=== PATIENT | female | born 1960 | race Caucasian/White ===

== ENCOUNTER 2024-07-30 13:56 | Outpatient (RCR) | payer MEDICAID, SELFPAY ==
--- NOTE | 2024-07-30 14:41 | PT.OIERPT ---
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 Pt has limitation with standing, walking, chores, balance, self care, and performing recreational activities. Objective: Right Hip AROM Flexion: 70 deg Abduction: 45 deg Extension: 15 deg ER and IR: WFL Right Hip MMTs: grossly 3/5 SLS: 2 sec Assessment: Pt demonstrate right hip mobility deficits and pain leading to difficulty with ADLs. Pt will attempt physical therapy if pain persist Pt will be refer back to provider for further consultation. Short Term and Supply Chain Analyst Goals 1) Decrease hip pain to 2/10 in 6 wks to be able to stand more than 30 mins 2) Increase right hip AROM WFL in 6 wks to be able to perform chores 3) Increase right hip MMTs grossly to 4-/5 in 6 wks to be able to walk more than 30 mins 4) Increase SLS to 10 sec in 6 wks to be able to perform self care activities 5) Indep with HEP Treatment Plan 1) Manual Therapy 2) Therapeutic Activities 3) Therapeutic Exercises 4) Modalities (ice, heat) 5) Balance Training 6) Gait Training Frequency and Duration: 2 x wk for 6 wks Certification Dates: 07/30/24 to 10/28/24 Procedure Charges OP PT Eval Mod Complex 30 minutes: Yes
== END 2024-08-12 23:59 | disposition home or self-care (01) ==
LOC: CPTX 13:56
PROVIDERS: PCP Family Medicine; Referring Provider Family Medicine; Visit Provider Family Medicine
DX: M25.551 Pain in right hip (principal); G89.29 Other chronic pain; R26.2 Difficulty in walking, not elsewhere classified; R26.89 Other abnormalities of gait and mobility
CPT/HCPCS: 97162

== ENCOUNTER 2024-08-04 20:18 | Inpatient (IN) | payer MEDICAID, SELFPAY ==
[2024-08-04 20:24] VITALS: BP 134/73; PULSE 40; PULSE 50; RESP 17; TEMP 36.6; O2SAT 93; BMI 25.7
--- NOTE | 2024-08-04 20:28 | XR_ITS ---
Examination: AP chest single view Technique: AP portable upright chest single view Exam date and time: August 04, 2024 2113 hrs. Comparison November 01, 2021 Indications: Chest pain today. Findings: Interval moderate CHF Mild to moderate enlargement cardiac contour Prominent vascular congestion with perihilar and basilar edema Moderate osteopenia Impression: Moderate CHF
--- NOTE | 2024-08-04 20:29 | PD.EDADULT ---
ED General RME/HPI General Chief complaint: Abdominal Pain Stated complaint: ABD PAIN Time Seen by Provider: 08/04/24 20:27 Arrival date/time: 08/04/24 20:18 CC: Epigastric pain HPI ongoing for 1 week denies any nausea vomiting has had loose formed stools. Patient states she has a significant hiatal hernia and the pain is similar to her hiatal hernia pain . Patient denies any nausea or vomiting. Patient complaining of weakness. Related Data Home Medications ?Medication ?Instructions ?Recorded ?Confirmed levothyroxine 50 mcg tablet 50 mcg PO QDAY THYROID #0 tabs 12/02/14 04/03/22 (Synthroid) clonidine HCl 0.1 mg tablet 1 tab PO QDAY 04/03/22 04/03/22 diltiazem HCl 120 mg 1 cap PO QDAY 04/03/22 04/03/22 capsule,extended release 24 hr docusate sodium 100 mg capsule 1 cap PO QDAY PRN Constipation 04/03/22 04/03/22 duloxetine 60 mg capsule,delayed 1 cap PO QDAY 04/03/22 04/03/22 release hydrochlorothiazide 12.5 mg capsule 1 cap PO QDAY 04/03/22 04/03/22 lisinopril 20 mg tablet 1 tab PO QDAY 04/03/22 04/03/22 metoprolol succinate 25 mg 1 tab PO QDAY 04/03/22 04/03/22 tablet,extended release 24 hr simvastatin 40 mg tablet 1 tab PO QDAY 04/03/22 04/03/22 Allergies Allergy/AdvReac Type Severity Reaction Status Date / Time adhesive Allergy Severe HIVES Verified 03/20/23 13:22 doxycycline Allergy Severe HIVES Verified 03/20/23 13:22 Penicillins Allergy Severe Hives Verified 03/20/23 13:22 Review of Systems Review of Systems Narrative Review of Systems: GEN: No fever, no chills, no weight loss EYES: No discharge, no visual changes, no pain HEENT: No ear pain, no congestion, no sore throat PULM: No shortness of breath, no cough, no congestion CV: No chest pain, no dyspnea on exertion, no palpitations GI: No nausea, no vomiting, no diarrhea, no pain, no constipation : No frequency, no urgency, no dysuria MUSC/SKEL: No joint pain, no back pain SKIN: No rash PSYCH: No hallucinations, no depression HEME/LYMPH: No easy bleeding or bruising tendencies NEURO: +weakness, no headache Past Medical History Past Medical History CARDIAC: Positive Hypertension; Negative Congestive Heart Failure RESPIRATORY: Negative Chronic Obstructive Pulmonary Disease (COPD) GASTROINTESTINAL: Positive Gastroesophageal Reflux Disease GENITOURINARY: Negative Renal Disease MUSCULOSKELETAL: Positive Fibromyalgia ENDOCRINE: Negative Diabetes Mellitus Type 1 or Diabetes Mellitus Type 2 PSYCHO/SOCIAL: Positive Depression and Anxiety Social History SMOKING STATUS: Never smoker ED Exam Narrative Physical exam: [General: Pale, in mild discomfort but not in any acute distress Head normocephalic HEENT: Eyes pupils are PERRLA EOMs are intact conjunctiva are blanched care nose: No rhinorrhea epistaxis mouth, blanched a mucous membranes dry, uvula is midline swallow symmetrical all other subsystems of HEENT are within acceptable limits Neck is supple nontender, no JVD no edema Chest equal chest rise nontender to palpation Respiratory: Clear to auscultation no wheezes crackles or rubs CV: Rate rhythm is regular no murmurs rubs or clicks Abdomen is soft, flat, tenderness with palpation site-specific at the epigastrium no radiation. No pain with palpation in the lower abdomen. Back: No CVA tenderness no spinous process tenderness from cervical spine thoracic and lumbar spine Skin: Pale, blanched, intact no petechiae rash induration ulceration or crepitus Extremities: Moving all extremity against resistance cap refill less than 2 seconds neurosensory intact Neuro: Awake alert oriented x3 Glascow coma 15 no focal deficits] Course Quality Measures none Orders Category Date Time Status Bedside COVID-19 Antigen Test NOW Care 08/04/24 22:41 Active Bedside COVID-19 Antigen Test NOW Care 08/04/24 23:45 Active COVID-19 Screening Questionnaire NOW Care 08/05/24 03:[address] Screening NOW Care 08/04/24 22:[address] Screening NOW Care 08/05/24 00:56 Completed Decision to Admit X1 Care 08/05/24 03:10 Completed EKG (ED ONLY) *Do not use* NOW Care 08/04/24 20:28 Completed [place] [Urinary Catheter] QS Care 08/04/24 22:14 Active Saline [Insert IV] NOW Care 08/04/24 23:[address] angio chest Stat Exams 08/05/24 00:[address] chest abdomen pelvis w Stat Exams 08/04/24 22:19 Completed EKG (ED Only) Stat Exams 08/04/24 20:28 Ordered US gall bladder Stat Exams 08/05/24 00:01 Completed XR chest 1V Stat Exams 08/04/24 20:28 Completed ABG [Arterial Blood Gas] Stat Lab 08/05/24 00:26 Completed B-Type Natriuretic Peptide Stat Lab 08/04/24 21:15 Completed BNP [B-Type Natriuretic Peptide] Stat Lab 08/04/24 23:37 Completed Blood Culture (Lab) Stat Lab 08/04/24 23:37 Received C-Reactive Protein Stat Lab 08/04/24 23:37 Completed CBC Stat Lab 08/04/24 21:15 Completed Comprehensive Metabolic Panel Stat Lab 08/04/24 21:15 Completed D-Dimer Stat Lab 08/04/24 23:37 Completed Drug Screen,Urine Stat Lab 08/04/24 21:19 Completed ESR [Sed Rate (ESR)] Stat Lab 08/04/24 23:37 Completed LDH (Lactate Dehydrogenase) Stat Lab 08/04/24 21:15 Completed Lactic Acid [Lactate (Lactic Acid)] Stat Lab 08/04/24 23:37 Completed Lactic Acid, 3 HR Stat Lab 08/05/24 03:20 Completed Magnesium Stat Lab 08/04/24 21:15 Completed Magnesium Stat Lab 08/04/24 23:37 Completed Partial Thromboplastin Time Stat Lab 08/04/24 21:15 Completed Procalcitonin Stat Lab 08/04/24 23:37 Completed Prothrombin Time with INR Stat Lab 08/04/24 21:15 Completed RSV [Respiratory Syncytial Virus Ag] Stat Lab 08/05/24 00:26 Completed TSH [Thyroid Stimulating Hormone] Stat Lab 08/04/24 21:15 Completed Troponin I Stat Lab 08/04/24 21:15 Completed Type and Screen Stat Lab 08/04/24 21:15 Completed Urinalysis Stat Lab 08/04/24 21:30 Completed VBG [Venous Blood Gas] Stat Lab 08/04/24 21:15 Completed Albuterol/Ipratr Rt Mary [Duoneb Rt Mary] Med 08/04/24 23:54 Discontinued 3 ml INH X1 ONE Azithromycin Inj [Zithromax Inj] 500 mg Med 08/04/24 23:54 Discontinued Sodium Chloride 0.9% 250 ml [Ns] 250 ml IV X1 Furosemide Inj [Lasix Inj] Med 08/05/24 00:00 Discontinued 40 mg IVP X1 ONE MethylPREDNISolone.* [SoluMEDROL Inj] Med 08/04/24 23:54 Discontinued 125 mg IVP X1 ONE Morphine Inj Med 08/04/24 23:04 Discontinued 4 mg IVP X1 ONE Nitroglycerin Oint 2% [Nitro-paste Oint 2%] Med 08/05/24 00:00 Discontinued 0.5 inch TOP X1 ONE Ondansetron Inj [Zofran Inj] Med 08/04/24 23:04 Discontinued 4 mg IV X1 ONE cefTRIAXone/D5w 1gm IV premix [Rocephin/D5w 1gm IV Med 08/04/24 23:06 Discontinued premix] 50 ml IV NOW Vital Signs Vital signs: Vital Signs Temperature 97.8 F 08/04/24 20:24 Pulse Rate 50 L 08/04/24 20:24 Respiratory Rate 17 08/04/24 20:24 Blood Pressure 134/73 H 08/04/24 20:24 [facility] Patient data External records reviewed:: [facility] previous records and EMS form Clinical information provided by:: patient and EMS Social determinants that could affect healthcare access:: none Patient has the following chronic illnesses:: Anemia hypertension hyperlipidemia How is presenting disease/condition affected by chronic disease/condition?: exacerbated by Evaluation data The following diagnostics were reviewed and interpreted by me:: lab results, radiology exam(s) and EKG tracing(s) Lab and/or radiology exams considered but not ordered:: EKG performed at 2099 shows ventricular rate of 5 2 TN interval 164 QRS of 113 QTc of 486 is sinus bradycardia abnormal EKG when compared to an old EKG EKG from October 2021, morphology is unchanged however that was at a normal rhythm. CBC shows the patient has been WBC of 8.3 H&H of 7.6 and 26.1 with platelets of 339 PT of 14.6 INR 1.4 PTT of 23.4 VBG shows 7.28 CO2 of 31 pO2 34 CMP shows a sodium 124 potassium of 4.6 chloride of 92 CO2 of 14.8 BUN 14 creatinine 1.4 and glucose of 108 BNP of 1265 Troponin is negative Chest x-ray shows vascular congestion CT chest 7 pelvis with IV contrast shows a significant right base pneumonia acute acalculous cholecystitis. Normal appendix Interpretation Summary: UTI sepsis hyponatremia anemia Medications Medications considered but not ordered:: None Medication administrations:: Medication Administration History Acetaminophen (Acetaminophen 325 Mg Tablet) 650 mg PO Q6H PRN PRN Reason: Pain 1-3 or Fever >101.5 Stop: 09/04/24 03:56 Hydrocodone Bitart/Acetaminophen (Hydrocodone/Apap 5/325 Tablet) 1 tab PO Q4HR PRN PRN Reason: PAIN SCALE 4-10(Mod-Sev Stop: 08/10/24 03:56 Last Admin: 08/05/24 08:41 Dose: 1 tab Documented By: CLEM Azithromycin (Azithromycin 250 Mg Tablet) 250 mg PO QPM SNONY Stop: 08/12/24 08:59 Furosemide (Furosemide Inj 10 Mg/Ml Vial 2 Ml) 20 mg IVP BIDD SONNY Stop: 09/04/24 06:14 Last Admin: 08/05/24 06:45 Dose: 20 mg Documented By: LAI Heparin Sodium (Porcine) (Heparin Sod Inj 5000 Unit/Ml Vial) 5,000 unit SC Q12HR SONNY Stop: 08/19/24 08:59 Last Admin: 08/05/24 08:39 Dose: 5,000 unit Documented By: CLEM Co-signed By: STAN Ceftriaxone Sodium/Dextrose (Rocephin/D5w 1gm Iv Premix) 50 mls @ 100 mls/hr IV QPM SONNY Stop: 08/12/24 20:59 Metronidazole (Metronidazole 250 Mg Tablet) 500 mg PO BID SONNY Stop: 08/12/24 08:59 Last Admin: 08/05/24 08:39 Dose: 500 mg Documented By: CLEM Ondansetron HCl (Ondansetron Inj 2 Mg/Ml Inj 2 Ml) 4 mg IV Q6H PRN; Protocol PRN Reason: NAUSEA OR VOMITING Stop: 09/04/24 03:56 Discontinued Medications Albuterol/Ipratropium (Albuterol/Ipratropium (Duoneb) Rt Mary 3 Ml Nebu) 3 ml INH X1 ONE Stop: 08/04/24 23:55 Last Admin: 08/05/24 00:12 Dose: 3 ml Documented By: NAEEM Furosemide (Furosemide Inj 10 Mg/Ml 4ml Vial) 40 mg IVP X1 ONE Stop: 08/05/24 00:01 Last Admin: 08/05/24 00:41 Dose: 40 mg Documented By: LAI Ceftriaxone Sodium/Dextrose (Rocephin/D5w 1gm Iv Premix) 50 mls @ 100 mls/hr IV NOW ONE Stop: 08/04/24 23:35 Last Infusion: 08/05/24 00:06 Dose: Infused Documented By: Admin: 08/04/24 23:36 Dose: 100 mls/hr Documented By: LAI Azithromycin 500 mg/ Sodium (Chloride) 250 mls @ 250 mls/hr IV X1 ONE Stop: 08/05/24 00:53 Last Infusion: 08/05/24 02:08 Dose: Infused Documented By: Admin: 08/05/24 01:08 Dose: 250 mls/hr Documented By: LAI Sodium Chloride (Ns) 500 mls @ 999 mls/hr IV .Q31M ONE Stop: 08/05/24 04:38 Last Infusion: 08/05/24 05:27 Dose: Infused Documented By: Admin: 08/05/24 04:30 Dose: 999 mls/hr Documented By: LAI Methylprednisolone Sodium Succinate (Methylprednisolone Sod Succ 62.5 Mg/Ml 2ml Vial) 125 mg IVP X1 ONE Stop: 08/04/24 23:55 Last Admin: 08/05/24 00:41 Dose: 125 mg Documented By: LAI Morphine Sulfate (Morphine Sulf Inj 10 Mg/Ml Vial) 4 mg IVP X1 ONE Stop: 08/04/24 23:05 Last Admin: 08/04/24 23:36 Dose: 4 mg Documented By: LAI Nitroglycerin (Nitroglycerin Oint 2% 1 Inch Packet) 0.5 inch TOP X1 ONE Stop: 08/05/24 00:01 Last Admin: 08/05/24 00:41 Dose: 0.5 inch Documented By: LAI Ondansetron HCl (Ondansetron Inj 2 Mg/Ml Inj 2 Ml) 4 mg IV X1 ONE; Protocol Stop: 08/04/24 23:05 Last Admin: 08/04/24 23:37 Dose: 4 mg Documented By: LAI None Consultations Consultation(s) initiated? (list below): No Diagnosis Differential Diagnosis ED Complaint MDM: Sepsis hyponatremia hypothermia UTI congestive heart failure pneumonia Most likely diagnosis given after review of the tests above:: Sepsis hyponatremia hypothermia UTI congestive heart failure pneumonia Admission Indicated Admission indicated?: indicated Explain why admission is indicated or not indicated:: Requires further medical management Admission Request Was there a request for admission?: No Disposition Plan Disposition Plan: Admit Medical Decision Making Differential Diagnosis Differential Diagnosis: Sepsis hyponatremia hypothermia UTI congestive heart failure pneumonia Lab Data 08/05/24 03:10 08/05/24 03:10 Labs: Lab Results 08/04/24 08/04/24 08/04/24 Range/Units 21:15 21:19 21:30 WBC 8.3 (3.6-11.0) Thou/mm3 RBC 3.90 L (4.00-5.20) Miln/mm3 Hgb 7.6 L (12.0-16.0) g/dL Hct 26.1 L (36.0-46.0) % MCV 67 L (80-100) fL MCH 19.5 L (25.0-35.0) pg MCHC 29.1 L (31.0-37.0) g/dl RDW Std Deviation 45.0 (36.4-46.3) fL Plt Count 339 (140-440) Thou/mm3 Neut % (Auto) 75 (37-80) % Lymph % (Auto) 13 (10-50) % [place] % (Auto) 10 (0-12) % Eos % (Auto) 0 (0-10) % Baso % (Auto) 0 (0-2.5) % Neut # (Auto) 6.3 (1.8-7.7) Thou/mm3 Lymph # (Auto) 1.1 (1.0-4.8) Thou/mm3 [place] # (Auto) 0.9 H (0.0-0.8) Thou/mm3 Eos # (Auto) 0.0 (0.0-0.5) Thou/mm3 Baso # (Auto) 0.0 (0.0-0.2) Thou/mm3 Immature Gran # (Auto) 0.10 H (0.00-0.00) Thou/mm3 Absolute Nucleated RBC 0.14 H (0.00-0.00) Thou/mm3 Immature Gran % 1 H (0-0) % Nucleated RBC % 2 H (0) /100 WBC ESR (0-30) mm/hr PT 14.6 H (9.0-12.2) Seconds INR 1.4 H (0.9-1.3) APTT 23.4 (22.0-36.0) Seconds D-Dimer (<600) ng/mL Puncture Site ABG pH (7.35-7.45) ABG pCO2 (32.0-48.0) mmHg ABG pO2 (83-108) mmHg ABG HCO3 (20-26) mEq/L ABG O2 Saturation (91-98) % ABG Base Excess (-3-3) VBG pH 7.28 L (7.33-7.66) VBG pCO2 31 L (36-56) mmHg VBG pO2 34 (15-58) mmHg VBG O2 Sat (Pily) 50 L (96-97) % VBG Base Excess -11 L (-3-3) Oxygen Liter Flow L/min FiO2 % Sodium 124 L (136-145) mMol/L Potassium 4.6 (3.4-5.1) mMol/L Chloride 92 L (98-107) mMol/L Carbon Dioxide 14.8 L* (20.0-31.0) mMol/L Anion Gap 17 H (7-16) BUN 14 (9-23) mg/dL Creatinine 1.4 H (0.6-1.3) mg/dL Estim Creat Clear Calc 38.0 L (>60) mL/min eGFR 43 L (60 - ) See Note BUN/Creatinine Ratio 10 L (12-20) Ratio Glucose 108 H (74-106) mg/dL Calculated Osmolality 251 L (275-295) Lactic Acid (0.4-2.0) mMol/L Calcium 9.5 (8.3-10.6) mg/dL Corrected Calcium 9.5 (8.5-10.1) mg/dL Magnesium 2.0 (1.6-2.6) mg/dL Total Bilirubin 0.6 (0.3-1.2) mg/dL AST 171 H (0-34) U/L ALT 264 H (10-49) U/L Alkaline Phosphatase 109 (46-116) U/L Lactate Dehydrogenase 309 H (120-246) U/L Troponin I < 0.020 (0.0-0.045) ng/mL C-Reactive Prot, Quant (0.0-0.9) mg/dL B-Natriuretic Peptide 1265 H* (0-100) pg/mL Total Protein 7.3 (5.7-8.2) gm/dL Albumin 4.2 (3.4-4.8) gm/dL Globulin 3.1 (2.3-3.5) gm/dL Albumin/Globulin Ratio 1.4 (1.2-2.2) Triglycerides (30-150) mg/dL Cholesterol (132-200) mg/dL LDL Cholesterol, Calc (0-130) mg/dL HDL Cholesterol (40-60) mg/dL Cholesterol/HDL Ratio (3.7-5.6) RATIO Procalcitonin (0.0-0.49) ng/ml TSH 3.66 (0.55-4.78) uIU/mL Ur Collection Type Clean Catch Urine Color Lt-Yellow (Lt Yel-Yel) Urine Clarity Clear (Clear/Hazy) Urine pH 6.0 (5.0-7.0) Ur Specific [place] 1.012 (1.001-1.035) Urine Protein Negative (Neg - Trace) Urine Glucose (UA) Negative (Negative) Urine Ketones 1+ A (Negative) Urine Blood Negative (Negative) Urine Nitrite Positive (Negative) Urine Bilirubin Negative (Negative) Urine Urobilinogen (Auto) Negative (0.0-1.0) mg/dL Ur Leukocyte Esterase Positive (Negative) Urine RBC 1 (0-3) /hpf Urine WBC 4 (0-5) /hpf Ur Squamous Epith Cells 0 (0-5) /hpf Urine Bacteria Rare (None) Hyaline Casts < 1 (0-1) /hpf Urine Opiates Screen Positive A (Negative) Urine Fentanyl Screen Negative (Negative) Ur Barbiturates Screen Negative (Negative) U Amphetamin/Meth Scrn Negative (Negative) U Benzodiazepines Scrn Negative (Negative) U Cocaine Metab Screen Negative (Negative) U Marijuana (THC) Screen Positive A (Negative) RSV Rapid (Negative) Blood Type A Positive Antibody Screen NEGATIVE Blood Bank Wristband ID Yes 08/04/24 08/05/24 08/05/24 Range/Units 23:37 00:26 03:10 WBC 11.7 H D (3.6-11.0) Thou/mm3 RBC 3.72 L (4.00-5.20) Miln/mm3 Hgb 7.2 L (12.0-16.0) g/dL Hct 24.1 L (36.0-46.0) % MCV 65 L (80-100) fL MCH 19.4 L (25.0-35.0) pg MCHC 29.9 L (31.0-37.0) g/dl RDW Std Deviation 42.0 (36.4-46.3) fL Plt Count 293 D (140-440) Thou/mm3 Neut % (Auto) 94 H (37-80) % Lymph % (Auto) 3 L (10-50) % [place] % (Auto) 3 (0-12) % Eos % (Auto) 0 (0-10) % Baso % (Auto) 0 (0-2.5) % Neut # (Auto) 11.0 H (1.8-7.7) Thou/mm3 Lymph # (Auto) 0.3 L (1.0-4.8) Thou/mm3 [place] # (Auto) 0.4 (0.0-0.8) Thou/mm3 Eos # (Auto) 0.0 (0.0-0.5) Thou/mm3 Baso # (Auto) 0.0 (0.0-0.2) Thou/mm3 Immature Gran # (Auto) 0.07 H (0.00-0.00) Thou/mm3 Absolute Nucleated RBC 0.04 H (0.00-0.00) Thou/mm3 Immature Gran % 1 H (0-0) % Nucleated RBC % 0 (0) /100 WBC ESR 27 (0-30) mm/hr PT (9.0-12.2) Seconds INR (0.9-1.3) APTT (22.0-36.0) Seconds D-Dimer 2470 H (<600) ng/mL Puncture Site Right Radial ABG pH 7.41 (7.35-7.45) ABG pCO2 35 (32.0-48.0) mmHg ABG pO2 86 (83-108) mmHg ABG HCO3 22 (20-26) mEq/L ABG O2 Saturation 97 (91-98) % ABG Base Excess -2 (-3-3) VBG pH (7.33-7.66) VBG pCO2 (36-56) mmHg VBG pO2 (15-58) mmHg VBG O2 Sat (Pily) (96-97) % VBG Base Excess (-3-3) Oxygen Liter Flow 2 L/min FiO2 21 % Sodium 129 L (136-145) mMol/L Potassium 3.6 D (3.4-5.1) mMol/L Chloride 94 L (98-107) mMol/L Carbon Dioxide 25.4 (20.0-31.0) mMol/L Anion Gap 10 (7-16) BUN 12 (9-23) mg/dL Creatinine 1.2 (0.6-1.3) mg/dL Estim Creat Clear Calc 44.3 L (>60) mL/min eGFR 51 L (60 - ) See Note BUN/Creatinine Ratio 10 L (12-20) Ratio Glucose 133 H (74-106) mg/dL Calculated Osmolality 260 L (275-295) Lactic Acid 3.2 H (0.4-2.0) mMol/L Calcium 8.9 (8.3-10.6) mg/dL Corrected Calcium 8.9 (8.5-10.1) mg/dL Magnesium 1.7 1.7 (1.6-2.6) mg/dL Total Bilirubin 0.7 (0.3-1.2) mg/dL AST 188 H (0-34) U/L ALT 260 H (10-49) U/L Alkaline Phosphatase 108 (46-116) U/L Lactate Dehydrogenase (120-246) U/L Troponin I (0.0-0.045) ng/mL C-Reactive Prot, Quant 1.2 H (0.0-0.9) mg/dL B-Natriuretic Peptide 1223 H* (0-100) pg/mL Total Protein 7.4 (5.7-8.2) gm/dL Albumin 4.3 (3.4-4.8) gm/dL Globulin 3.1 (2.3-3.5) gm/dL Albumin/Globulin Ratio 1.4 (1.2-2.2) Triglycerides 92 (30-150) mg/dL Cholesterol 125 L (132-200) mg/dL LDL Cholesterol, Calc 74 (0-130) mg/dL HDL Cholesterol 33 L (40-60) mg/dL Cholesterol/HDL Ratio 3.8 (3.7-5.6) RATIO Procalcitonin 0.65 H (0.0-0.49) ng/ml TSH (0.55-4.78) uIU/mL Ur Collection Type Urine Color (Lt Yel-Yel) Urine Clarity (Clear/Hazy) Urine pH (5.0-7.0) Ur Specific [place] (1.001-1.035) Urine Protein (Neg - Trace) Urine Glucose (UA) (Negative) Urine Ketones (Negative) Urine Blood (Negative) Urine Nitrite (Negative) Urine Bilirubin (Negative) Urine Urobilinogen (Auto) (0.0-1.0) mg/dL Ur Leukocyte Esterase (Negative) Urine RBC (0-3) /hpf Urine WBC (0-5) /hpf Ur Squamous Epith Cells (0-5) /hpf Urine Bacteria (None) Hyaline Casts (0-1) /hpf Urine Opiates Screen (Negative) Urine Fentanyl Screen (Negative) Ur Barbiturates Screen (Negative) U Amphetamin/Meth Scrn (Negative) U Benzodiazepines Scrn (Negative) U Cocaine Metab Screen (Negative) U Marijuana (THC) Screen (Negative) RSV Rapid Negative (Negative) Blood Type Antibody Screen Blood Bank Wristband ID 08/05/24 Range/Units 03:20 WBC (3.6-11.0) Thou/mm3 RBC (4.00-5.20) Miln/mm3 Hgb (12.0-16.0) g/dL Hct (36.0-46.0) % MCV (80-100) fL MCH (25.0-35.0) pg MCHC (31.0-37.0) g/dl RDW Std Deviation (36.4-46.3) fL Plt Count (140-440) Thou/mm3 Neut % (Auto) (37-80) % Lymph % (Auto) (10-50) % [place] % (Auto) (0-12) % Eos % (Auto) (0-10) % Baso % (Auto) (0-2.5) % Neut # (Auto) (1.8-7.7) Thou/mm3 Lymph # (Auto) (1.0-4.8) Thou/mm3 [place] # (Auto) (0.0-0.8) Thou/mm3 Eos # (Auto) (0.0-0.5) Thou/mm3 Baso # (Auto) (0.0-0.2) Thou/mm3 Immature Gran # (Auto) (0.00-0.00) Thou/mm3 Absolute Nucleated RBC (0.00-0.00) Thou/mm3 Immature Gran % (0-0) % Nucleated RBC % (0) /100 WBC ESR (0-30) mm/hr PT (9.0-12.2) Seconds INR (0.9-1.3) APTT (22.0-36.0) Seconds D-Dimer (<600) ng/mL Puncture Site ABG pH (7.35-7.45) ABG pCO2 (32.0-48.0) mmHg ABG pO2 (83-108) mmHg ABG HCO3 (20-26) mEq/L ABG O2 Saturation (91-98) % ABG Base Excess (-3-3) VBG pH (7.33-7.66) VBG pCO2 (36-56) mmHg VBG pO2 (15-58) mmHg VBG O2 Sat (Pily) (96-97) % VBG Base Excess (-3-3) Oxygen Liter Flow L/min FiO2 % Sodium (136-145) mMol/L Potassium (3.4-5.1) mMol/L Chloride (98-107) mMol/L Carbon Dioxide (20.0-31.0) mMol/L Anion Gap (7-16) BUN (9-23) mg/dL Creatinine (0.6-1.3) mg/dL Estim Creat Clear Calc (>60) mL/min eGFR (60 - ) See Note BUN/Creatinine Ratio (12-20) Ratio Glucose (74-106) mg/dL Calculated Osmolality (275-295) Lactic Acid 0.9 (0.4-2.0) mMol/L Calcium (8.3-10.6) mg/dL Corrected Calcium (8.5-10.1) mg/dL Magnesium (1.6-2.6) mg/dL Total Bilirubin (0.3-1.2) mg/dL AST (0-34) U/L ALT (10-49) U/L Alkaline Phosphatase (46-116) U/L Lactate Dehydrogenase (120-246) U/L Troponin I (0.0-0.045) ng/mL C-Reactive Prot, Quant (0.0-0.9) mg/dL B-Natriuretic Peptide (0-100) pg/mL Total Protein (5.7-8.2) gm/dL Albumin (3.4-4.8) gm/dL Globulin (2.3-3.5) gm/dL Albumin/Globulin Ratio (1.2-2.2) Triglycerides (30-150) mg/dL Cholesterol (132-200) mg/dL LDL Cholesterol, Calc (0-130) mg/dL HDL Cholesterol (40-60) mg/dL Cholesterol/HDL Ratio (3.7-5.6) RATIO Procalcitonin (0.0-0.49) ng/ml TSH (0.55-4.78) uIU/mL Ur Collection Type Urine Color (Lt Yel-Yel) Urine Clarity (Clear/Hazy) Urine pH (5.0-7.0) Ur Specific [place] (1.001-1.035) Urine Protein (Neg - Trace) Urine Glucose (UA) (Negative) Urine Ketones (Negative) Urine Blood (Negative) Urine Nitrite (Negative) Urine Bilirubin (Negative) Urine Urobilinogen (Auto) (0.0-1.0) mg/dL Ur Leukocyte Esterase (Negative) Urine RBC (0-3) /hpf Urine WBC (0-5) /hpf Ur Squamous Epith Cells (0-5) /hpf Urine Bacteria (None) Hyaline Casts (0-1) /hpf Urine Opiates Screen (Negative) Urine Fentanyl Screen (Negative) Ur Barbiturates Screen (Negative) U Amphetamin/Meth Scrn (Negative) U Benzodiazepines Scrn (Negative) U Cocaine Metab Screen (Negative) U Marijuana (THC) Screen (Negative) RSV Rapid (Negative) Blood Type Antibody Screen Blood Bank Wristband ID Discharge Plan Plan Patient Disposition: Admit Acute Care w/in Hospital Problem List Clinical Impression: Sepsis, Hypothermia, Acute respiratory failure with hypoxia, Pneumonia, CHF (congestive heart failure), Cholecystitis, Severe anemia, Hyponatremia, UTI (urinary tract infection)
--- NOTE | 2024-08-04 20:35 | PC.NURSE ---
IN TO ASSESS PT. PT BIB EMS WITH C/O EPIGASTRIC PAIN X 3 DAYS. PT ALSO STATES SHE HAS A HIATAL HERNIA. PT PRESENTS TO ER COLD TO TOUCH, WEAK AND HYPOXIC. PT STATING 84% ON ROOM AIR. PER MEDIC UNABLE TO OBTAIN O2 SAT DURING TRANSPORT TO ER. PT PLACED ON OXYMASK 15L. PT DOES NOT APPEAR TO HAVE INCREASE WORK OF BREATHING. PT RESPIRATIONS ARE NOT LABORED AND APPEAR TO BE EVEN. PT PLACED ON CARDIAC MONITORING. PROVIDER SHAY AT BEDSIDE ASSESSING PT. PT UPDATED ON PLAN OF CARE. PT A/X3 GCS 15. CALL LIGHT WITHIN REACH. BED AT LOWEST POSITION.
[2024-08-04 20:50] VITALS: TEMP 35
--- NOTE | 2024-08-04 20:50 | PC.NURSE ---
UNALBE TO GET O2 SATURATIONS AT THIS TIME. PT TEMP 95.0, RECTAL. ORDERS GIVEN TO PLACE ON MARIELOS REGIGGER.
--- NOTE | 2024-08-04 20:50 | PC.NURSE ---
PT PLACED ON MARIELOS WARMER AT THIS TIME
[2024-08-04 21:00] VITALS: PULSE 45
[2024-08-04 21:26] LABS: Base Excess, Venous -11 (-3-3); O2 Saturation, Venous 50 % (96-97); PCO2, Venous 31 mmHg (36-56); PO2, Venous 34 mmHg (15-58); pH, Venous 7.28 (7.33-7.66)
[2024-08-04 21:32] LABS: Basophils % (Auto) 0 % (0-2.5); Eosinophils % (Auto) 0 % (0-10); Hematocrit 26.1 % (36.0-46.0); Immature Granulocytes % (Auto) 1 % (0-0); Lymphocytes # (Auto) 1.1 Thou/mm3 (1.0-4.8); Lymphocytes % (Auto) 13 % (10-50); Mean Corpuscular HGB Conc 29.1 g/dl (31.0-37.0); Mean Corpuscular Hemoglobin 19.5 pg (25.0-35.0); Mean Corpuscular Volume 67 fL (80-100); Monocytes # (Auto) 0.9 Thou/mm3 (0.0-0.8); Monocytes % (Auto) 10 % (0-12); Neutrophils # (Auto) 6.3 Thou/mm3 (1.8-7.7); Neutrophils % (Auto) 75 % (37-80); Nucleated Red Blood Cell # 0.14 Thou/mm3 (0.00-0.00); Nucleated Red Blood Cell % 2 /100 WBC (0); Platelet Count 339 Thou/mm3 (140-440); White Blood Count 8.3 Thou/mm3 (3.6-11.0)
[2024-08-04 21:33] LABS: Hemoglobin 7.6 g/dL (12.0-16.0)
[2024-08-04 21:44] LABS: Collection Type, Urine Clean Catch; Squamous Epithelial Cell,Urine 0 /hpf (0-5)
[2024-08-04 21:50] VITALS: BP 151/72; PULSE 65; RESP 19; TEMP 36.5; O2SAT 93
[2024-08-04 21:50] LABS: Bacteria,Urine Rare; Bilirubin,Urine Negative (Negative); Blood,Urine Negative (Negative); Clarity,Urine Clear (Clear/Hazy); Color,Urine Lt-Yellow (Lt Yel-Yel); Glucose, Urine Negative (Negative); Hyaline Casts,Urine < 1 /hpf (0-1); Ketones,Urine 1+ (Negative); Leukocyte Esterase,Urine Positive (Negative); Nitrite,Urine Positive (Negative); Protein,Urine Negative (Neg - Trace); RBC,Urine 1 /hpf (0-3); Specific Gravity,Urine 1.012 (1.001-1.035); Urobilinogen,Urine Negative mg/dL (0.0-1.0); WBC,Urine 4 /hpf (0-5)
[2024-08-04 21:53] LABS: INR 1.4 (0.9-1.3); Partial Thromboplastin Time 23.4 Seconds (22.0-36.0); Prothrombin Time 14.6 Seconds (9.0-12.2)
[2024-08-04 22:00] VITALS: TEMP 35.2
[2024-08-04 22:06] LABS: Amphetamine/Methamp Scrn,U Negative (Negative); Barbiturate Screen,Urine Negative (Negative); Benzodiazepines Screen,Urine Negative (Negative); Benzoylecgonine Screen, Ur Negative (Negative); Fentanyl Screen,Urine Negative (Negative); Opiate Screen,Urine Positive (Negative); THC Screen,Urine Positive (Negative)
[2024-08-04 22:07] LABS: Alanine Aminotransferase 264 U/L (10-49); Albumin, Serum 4.2 gm/dL (3.4-4.8); Albumin/Globulin Ratio 1.4 (1.2-2.2); Alkaline Phosphatase 109 U/L (46-116); Anion Gap 17 (7-16); Aspartate Amino Transferase 171 U/L (0-34); BUN/Creatinine Ratio 10 Ratio (12-20); Bilirubin,Total 0.6 mg/dL (0.3-1.2); Blood Urea Nitrogen 14 mg/dL (9-23); Calcium 9.5 mg/dL (8.3-10.6); Calcium (Corrected) 9.5 mg/dL (8.5-10.1); Chloride 92 mMol/L (98-107); Creatinine (Component) 1.4 mg/dL (0.6-1.3); Globulin 3.1 gm/dL (2.3-3.5); Glucose 108 mg/dL (74-106); Osmolality,Calculated 251 (275-295); Potassium 4.6 mMol/L (3.4-5.1); Sodium 124 mMol/L (136-145); Thyroid Stimulating Hormone 3.66 uIU/mL (0.55-4.78); Total Protein 7.3 gm/dL (5.7-8.2); Troponin I < 0.020 ng/mL (0.0-0.045); eGFR 43 See Note
[2024-08-04 22:11] LABS: Carbon Dioxide 14.8 mMol/L (20.0-31.0)
[2024-08-04 22:19] LABS: LDH (Lactate Dehydrogenase) 309 U/L (120-246)
--- NOTE | 2024-08-04 22:19 | XR_ITS ---
Examination: CT chest with intravenous contrast CT abdomen with intravenous contrast CT pelvis with intravenous contrast 2-D coronal and sagittal reconstructions Time of exam: August 04, 2024 10:33 PM Indications: Chest and abdominal pain today CTDI: vol (mGy) : 9.72 DLP: (mGycm): 707 Technique: Multiple axial images of the chest, abdomen and pelvis with intravenous contrast, 3.0 mm slice thickness. Images obtained post intravenous injection Isovue 30 cc Isovue-300 2-D sagittal and coronal reconstructions. Low dose protocols were performed. One or more of the following dose reduction techniques were used; automated exposure control, adjustment of the mA and/or KV according to patient size, use of iterative reconstruction technique. Findings: No thoracic aortic aneurysm dilatation No pulmonary artery emboli Mild enlargement left atrium left ventricle Prominent vascular congestion with septal pulmonary edema Pneumonia at the right base Small right minimal left pleural fluid No focal liver or splenic lesions Gallbladder wall edema No pancreatic or adrenal mass Moderate bilateral renal parenchymal scar formation Aorta normal size Normal appendix No bowel obstruction Mild free fluid in the pelvis Urinary bladder contracted around a Santoyo catheter Prominent osteopenia with grade 1 anterolisthesis L4 on L5 Impression: Mild CHF Significant pneumonia right base Acute acalculous cholecystitis, recommend hepatobiliary sonography follow-up Normal appendix Moderate bilateral renal parenchymal scar formation, no hydronephrosis
[2024-08-04 22:45] VITALS: BP 151/72; PULSE 69; RESP 19; O2SAT 93
[2024-08-04 22:55] LABS: B-Type Natriuretic Peptide 1265 pg/mL (0-100)
--- NOTE | 2024-08-04 23:22 | PD.EDADDENDU ---
Emergency Room Addendum <Justine Zepeda - Last Filed: 08/05/24 03:10> Addendum Narrative: 2300: Care assumed from Adam Collins NP. Past medical, surgical, social and family history reviewed. Vitals and home medications reviewed. Results and treatment plan discussed. I will assume the care of the patient at this time and will follow the patient, pending gallbladder ultrasound. Please refer to the emergency department record for history and examination from initial visit. I reviewed all diagnostic test results. My interpretation of the EKG is My interpretation of the chest x-ray is My review of the CT report is Blood tests and urine tests At this point, diagnoses include sepsis, hypothermia, acute respiratory failure with hypoxia, pneumonia, CHF, cholecystitis. Treatment here included 0307: Discussed case with [the resident physician, attending Dr. Heath] from Hospitalist service regarding admission. Discussed patients ED course, exam findings, labs, and radiology results. The Hospitalist [agrees] to accept the patient for admission. <Shayan Skinner MD - Last Filed: 08/05/24 03:53> Addendum Narrative: 2300: Care assumed from Adam Collins NP. Past medical, surgical, social and family history reviewed. Vitals and home medications reviewed. Results and treatment plan discussed. I will assume the care of the patient at this time and will follow the patient, pending further diagnostic tests including gallbladder ultrasound. Please refer to the emergency department record for history and examination from initial visit and ED course. I reviewed all diagnostic test results. My interpretation of the chest x-ray is increased vascular congestion. My review of the chest/abdomen/pelvis CT report is pneumonia and CHF and cholecystitis. My review of the gallbladder US report is cholecystitis. Blood tests and urine tests remarkable for Hgb 7.6, D-dimer 2470, Na 124, BNP 1223, UTI, negative troponin, and lactic acid 3.2. RSV/COVID/influenza negative. At this point, diagnoses include sepsis, hypothermia, acute respiratory failure with hypoxia, pneumonia, CHF, cholecystitis, UTI, hyponatremia, severe anemia. Treatment here included oxygen, Rocephin, Zithromax, Solu-Medrol, DuoNeb, Lasix, morphine, and topical NTG. No significant improvement noted. 0307: Discussed case with [the resident physician, attending Dr. Heath] from Hospitalist service regarding admission. Discussed patient's ED course, exam findings, labs, and radiology results. The Hospitalist [agrees] to accept the patient for admission. Shayan kSinner MD
[2024-08-04] MEDS: cefTRIAXone/D5w 1gm IV premix 50 ML IV (23:36)
[2024-08-04] MEDS: MORPHINE SULF INJ 10 MG/ML VIAL 4 MG IVP (23:36)
[2024-08-04] MEDS: ONDANSETRON INJ 2 MG/ML INJ 2 ML 4 MG IV (23:37)
[2024-08-04 23:46] LABS: Lactate (Lactic Acid) 3.2 mMol/L (0.4-2.0)
[2024-08-05] VITALS (14 sets, daily range): BP systolic 123–144; BP diastolic 56–76; PULSE 68–84; RESP 14–89; TEMP 36.2–37.4; O2SAT 94–100; BMI 25.2
--- NOTE | 2024-08-05 00:01 | XR_ITS ---
Examination: Abdomen sonogram, Limited Date and time of exam: August 04, 2024 11:58 PM Indications: Right upper abdominal pain and tenderness beginning a couple days ago Technique: Real-time dickinson scale transabdominal sonographic images of the upper abdomen obtained. Findings: Negative for gallstones Gallbladder wall is abnormally thickened 0.63 cm Common bile duct 0.41 cm no stones Pancreas obscured by bowel gas Liver 14.8 cm no liver lesions Normal hepatopedal portal venous flow Patent IVC Impression: Acute acalculous cholecystitis
[2024-08-05] MEDS: ALBUTEROL/IPRATROPIUM (Duoneb) RT SOL 3 ML NEBU INH (00:12)
[2024-08-05 00:23] LABS: Sed Rate (ESR) 27 mm/hr (0-30)
[2024-08-05 00:30] LABS: Allen Test Performed/OK; Base Excess -2 (-3-3); HCO3 22 mEq/L (20-26); Inspired O2, VO2 Liters 2 L/min; Inspired Oxygen, FIO2 21 %; O2 Saturation 97 % (91-98); PCO2 35 mmHg (32.0-48.0); PO2 86 mmHg (83-108); Puncture Site Right Radial; pH, Arterial 7.41 (7.35-7.45)
[2024-08-05 00:41] LABS: D-Dimer 2470 ng/mL (<600)
[2024-08-05] MEDS: NITROGLYCERIN OINT 2% 1 INCH PACKET 0.5 INCH TOP (00:41)
[2024-08-05] MEDS: FUROSEMIDE INJ 10 MG/ML 4ML VIAL 40 MG IVP (00:41)
[2024-08-05] MEDS: MethylPREDNISolone SOD SUCC 62.5 MG/ML 2ML VIAL 125 MG IVP (00:41)
--- NOTE | 2024-08-05 00:50 | PC.NURSE ---
PT'S RECTAL TEMP 98.1, MARIELOS MANCERA REMOVED AT THIS TIME.
[2024-08-05 00:52] LABS: B-Type Natriuretic Peptide 1223 pg/mL (0-100)
[2024-08-05 00:56] LABS: Magnesium 1.7 mg/dL (1.6-2.6); Procalcitonin 0.65 ng/ml (0.0-0.49)
--- NOTE | 2024-08-05 00:56 | XR_ITS ---
Examination: CTA chest with intravenous contrast 2-D reconstructions 3-D reconstructions, vascular Date and time of exam: August 05, 2024 0122 hrs. Indications: Shortness of breath hypoxia chest pain today CTDI: vol (mGy) 21.01 DLP: (mGycm) 471 Technique: Multiple axial sections of the thorax have been obtained. 3 mm slice thickness, from below the hemidiaphragms to above the apices of the lungs. Mediastinal and lung density settings have been obtained. 2-D sagittal and coronal reconstructions. 3-D angiographic renderings, 3-D volume renderings, 3D post processing, vascular maximum intensity projections obtained. Contrast administered is 60 cc Isovue-300. Low dose protocols were performed. One or more of the following dose reduction techniques were used; automated exposure control, adjustment of the mA and/or KV according to patient size, use of iterative reconstruction technique. Findings: No thoracic aortic aneurysmal dilatation or dissection No pulmonary artery emboli Mild enlargement left atrium left ventricle No paratracheal tracheobronchial or bronchopulmonary adenopathy Significant vascular congestion with mild pulmonary edema Pneumonia at the lung bases with mild to moderate right pleural effusion and minimal left pleural effusion No visualized liver or splenic lesion Gallbladder wall appears thickened and edematous No pancreatic mass Kidneys partially visualized no hydronephrosis Impression: Mild heart failure Negative for pulmonary artery emboli Bibasilar pneumonia Mild to moderate right pleural effusion Acute acalculous cholecystitis
[2024-08-05 01:07] LABS: C-Reactive Protein 1.2 mg/dL (0.0-0.9)
[2024-08-05] MEDS: AZITHROMYCIN INJ 500 MG in SODIUM CHLORIDE 0.9% 250 ML 250 ML 250 MG IV (01:08)
[2024-08-05 01:26] LABS: Respiratory Syncytial Virus Ag Negative (Negative)
[2024-08-05 02:43] LABS: Reflex Lactate? Y
--- NOTE | 2024-08-05 02:45 | PRELIM_ITS ---
CT angiogram of the chest with intravenous contrast (axial sections with sagittal and coronal reforma ts) August 05, 2024 at 0120 hours Clinical History: Shortness of breath, hypoxia. Technique:Helical axial sections with sagittal and coronal reformats of the chest were obtained with intravenous contr ast. Iterative reconstruction technique was employed to reduce patient radiation exposure. 3D/MIP rec onstructed images were also provided. Comparison: Compared with the prior study dated August 04.Findings:There is no filling defect within the pulmonary artery divisions to suggest pulmonary thr omboembolism. The mediastinum demonstrates no evidence of mass or lymphadenopathy. The thoracic aorta is unremarkable. There is no pericardial effusion. Bilateral lower lobes consolidation.No pneumothor ax.Moderate right pleural effusion. Small left pleural effusion.Degenerative changes of the imaged p ortions of the spine. No acute fractures. Chronic multilevel disc disease.Gallbladder wall thickenin g.Bilateral breast implants in place.Dilated left atrium.Impression:1. No CT evidence of pulmonary th romboembolism.2. Bilateral pleural effusions.3. Bilateral lower lobes pneumonia.4. Dilated left atriu m.5. Gallbladder wall thickening suspicious for acute cholecystitis. Report Electronically Signed By: Jayce Malcolm 08/05/2024 2:43:50 AM [EST]
[2024-08-05 03:24] LABS: Lactic Acid, 3 HR 0.9 mMol/L (0.4-2.0)
--- NOTE | 2024-08-05 04:00 | ECHO_ITS ---
Transthoracic Echo Report Ht (in): 63 Wt (lb): 145 Exam Location: Port[facility] Status: Emergency Public Works Commissioner: Zara Ortiz Indications: Procedure Performed: BP: 131 / 72 HR: 73 Rhythm: Sinus Technical Quality: Fair MEASUREMENTS (Male / Female) Normal Values 2D ECHO LV Diastolic Diameter PLAX 5.7 cm 4.2 - 5.9 / 3.9 - 5.3 cm LV Systolic Diameter PLAX 3.9 cm IVS Diastolic Thickness 0.9 cm 0.6 - 1.0 / 0.6 - 0.9 cm LVPW Diastolic Thickness 0.9 cm 0.6 - 1.0 / 0.6 - 0.9 cm LV Relative Wall Thickness 0.3 LVOT Diameter 1.8 cm LA Volume Index 55.5 cm?/m? 16 - 28 cm?/m? Ascending Aorta Diameter 3.2 cm M-MODE Aortic Root Diameter MM 2.5 cm LA Systolic Diameter MM 4.3 cm LA Ao Ratio MM 1.7 AV Cusp Separation MM 1.8 cm DOPPLER AV Peak Velocity 181.0 cm/s AV Peak Gradient 13.1 mmHg AV Mean Gradient 7.0 mmHg AV Velocity Time Integral 40.4 cm AI Peak Velocity 447.0 cm/s AI Peak Gradient 79.9 mmHg AI Pressure Half Time 540.0 ms LVOT Peak Velocity 113.0 cm/s LVOT Peak Gradient 5.1 mmHg LVOT Velocity Time Integral 25.0 cm LVOT Cardiac Index 2694.3 cm?/min?m? AV Area Cont Eq vti 1.6 cm? AV Area Cont Eq pk 1.6 cm? MV Peak Velocity 142.0 cm/s MV Peak Gradient 8.1 mmHg MV Mean Velocity 87.3 cm/s MV Mean Gradient 4.0 mmHg MV Area PHT 5.0 cm? MR Peak Velocity 549.5 cm/s MR Peak Gradient 120.8 mmHg Mitral E Point Velocity 142.0 cm/s Mitral A Point Velocity 122.0 cm/s Mitral E to A Ratio 1.2 LV E' Lateral Velocity 12.4 cm/s Mitral E to LV E' Lateral Ratio 11.5 LV E' Septal Velocity 7.5 cm/s Mitral E to LV E' Septal Ratio 18.9 FINDINGS Left Ventricle Mild left ventricle dilatation. Normal wall thickness, systolic function with no obvious regional wa ll motion abnormalities. The ejection fraction is visually estimated at 55-60%. Right Ventricle The right ventricle is normal in size and systolic function. Left Atrium The left atrium is moderately dilated. Right Atrium The right atrium is normal by two-dimensional imaging, color flow and Doppler imaging with no struct ural abnormalities, no thrombus formation present. Atrial Septum The interatrial septum appears normal with no evidence of a shunt. Aorta The aorta is normal by two-dimensional, color flow and Doppler interrogation. Mitral Valve The mitral valve is normal by two-dimensional, color flow and Doppler interrogation. There is modera te mitral valve regurgitation. Aortic Valve The aortic valve is trileaflet and normal by two-dimensional, color flow and Doppler interrogation. There is moderate aortic valve regurgitation. Tricuspid Valve The tricuspid valve is normal by two-dimensional, color flow and Doppler interrogation. There is tra ce tricuspid valve regurgitation. Pulmonic Valve There is no significant pulmonic valve regurgitation. Vessels The pulmonary artery appears normal. The inferior vena cava pulmonary and hepatic veins appear gisele l. Pericardium The pericardium is normal by two-dimensional imaging. There is no significant pericardial effusion. Other Findings Pleural effusion present. CONCLUSIONS Dilated LV. Normal LV size and function. Estimated EF 55-60% Normal RV size and function. Moderate LA dilatation Moderate MR, Mild aortic regurgitation race TR. Pleural effusion present. Lily Blake (Electronically Signed) Final Date: 05 August 2024 13:09
--- NOTE | 2024-08-05 04:18 | ESHP_ITS ---
<Statement entered by Kendra Heath MD - 08/05/24 07:10> I Kendra Heath MD reviewed the note and agree with the resident's assessment & plan with exceptions as below. I have personally reviewed labs, imaging, home meds/prior records, examined the patient, formulated and discussed management plan with the IM team. A 64-year-old female with Hx of HTN, hypothyroidism, opioid dependence presented to ED with 4 days of abdominal pain, nausea, diarrhea and noted to have hypothermia requiring supplemental oxygen via oxime mask and significant bilateral pulmonary crackles and lethargy on physical examination. Labs remarkable for microcytic anemia, leukocytosis, hyponatremia with NA 124, elevated anion gap with lactate of 3.2> 0.9 and elevated LDH. BNP noted to be elevated at 1.2. CT scan did reveal right basilar infiltrates along with pulmonary vascular congestion and bilateral effusion. Procalcitonin significantly elevated. Admit patient for symptomatic hyponatremia, acute hypoxemic respiratory failure likely secondary to COPD/decompensated congestive heart failure, JUAN ANTONIO, acalculous cholecystitis and transaminitis likely due to congestive hepatopathy. Will start patient on gentle diuresis with Lasix 20 mg twice daily, empiric antibiotic coverage with cefepime, azithromycin and Flagyl for potential pneumonia and acalculous cholecystitis. Obtain haptoglobin and Bell test for potential hemolytic anemia. Continue respiratory support with supplemental oxygen, every 6 renal panel. Obtain stool studies echocardiogram to evaluate for myocardial function. Documentation for date of: 08/05/24 HPI History of Present Illness History of present illness: The patient is a 64-year-old female with a past medical history of hypertension, hypothyroidism, opiate dependence, chronic pain disorder and anxiety disorder presenting to the ED on 08/04/2024 with a 4-day history of generalized abdominal pain, nausea and diarrhea. Patient is a poor historian and has a very hard time recollecting the course of events that have taken place since her symptoms started. Per the patient, she was in her usual state of health until about 4 days ago when she started to experience generalized abdominal pain, initially starting in the periumbilical region, and then involving all regions of the abdomen. She endorses associated nausea and multiple episodes of diarrhea per day, but denies vomiting. Diarrhea said to be nonbloody, last episode had a couple hours before coming to the ED. She denies any recent travels or sick contacts or eating any meals, not prepared solely by her. She lives alone and has not shared results with anyone who could possibly have similar symptoms. Additionally, she endorses subjective fever and chills, and nonproductive cough but denies chest pain, shortness of breath or palpitations. She also denies orthopnea, paroxysmal nocturnal dyspnea or pitting edema. Patient has no urinary symptoms. ED course: In the ED, she was noted to be hypothermic with temperature of 95 degrees, but saturating 93% on room air. Labs done: WBC 8.3 Hgb 7.6 with low MCV ESR 27 D-dimer 2470 NA 120 4K4.6 CL 92 bicarb 14.8 anion gap 17 BUN 14 CR 1.4 EGFR 43 glucose 108 AST 171 ALT 264 LDH 309 CRP 1.2 BNP 1223 procalcitonin 0.65 normal TSH UA positive for 1+ ketones and esterase, otherwise unremarkable and U-Tox was positive for opiates and marijuana. Chest x-ray showed pulmonary vascular congestion and CT showed significant pneumonia in the right base Due to patient's hypoxia, she was placed on oxy mask at 7 L. She was given IV ceftriaxone, azithromycin, Solu-Medrol 125 mg and IV Lasix 40 mg. Review of Systems Review of Systems Narrative Review of Systems: GENERAL: Denies fevers/chills or diaphoresis. HEENT: Denies headache or visual/hearing changes. Denies nasal discharge. NEURO: Denies unusual weakness or difficulty speaking. CARDIO: Denies chest pain or palpitations. PULM: Denies shortness of breath, admits nonproductive cough GI: Admits abdominal pain, nausea, diarrhea. Denies vomiting URO: Denies burning/itching/pain/urinary changes. MSK/EXT/SKIN: Denies joint/skeletal/muscle pain, issues/changes in upper or lower extremities, itchiness, or superficial pain. PSYCH: Cooperative, pleasant mood & affect. Exam Vital Signs Temp Pulse Resp BP Pulse Ox O2 Del Method O2 Flow Rate 98.1 F 68 21 H 126/57 L 99 Oxy Mask 10 08/05/24 00:47 08/05/24 03:54 08/05/24 03:54 08/05/24 03:54 08/05/24 03:54 08/05/24 03:54 08/05/24 03:54 Narrative Exam GENERAL: AAOX3 NEURO: ECONOMIC DEVELOPER grossly intact, moves extremities x4 HEENT: Dry mucosa. Eyes open, symmetrical, & clear CARDIO: No chest pain on palpation. Heart RRR, no obvious murmurs PULM: Minimal crackles, worse on the right base. GI: Abdomen soft, nondistended, mild tenderness to palpation abdomen, generalized. BSx4 URO/CASINO CASHIER:: No further abnormalities noted. SKIN/MSK/EXT: Right wrist joint with limited range of motion Results: Labs 08/05/24 03:10 08/05/24 03:10 Labs: Short CBC 08/04/24 Range/Units 21:15 WBC 8.3 (3.6-11.0) Thou/mm3 Hgb 7.6 L (12.0-16.0) g/dL Hct 26.1 L (36.0-46.0) % Plt Count 339 (140-440) Thou/mm3 BMP 08/04/24 21:15 Sodium 124 L Potassium 4.6 Chloride 92 L Carbon Dioxide 14.8 L* BUN 14 Creatinine 1.4 H Glucose 108 H Calcium 9.5 Cardiac Enzymes 08/04/24 Range/Units 21:15 Troponin I < 0.020 (0.0-0.045) ng/mL Liver Function 08/04/24 Range/Units 21:15 Total Bilirubin 0.6 (0.3-1.2) mg/dL AST 171 H (0-34) U/L ALT 264 H (10-49) U/L Alkaline Phosphatase 109 (46-116) U/L Albumin 4.2 (3.4-4.8) gm/dL Urine 08/04/24 Range/Units 21:30 Urine Color Lt-Yellow (Lt Yel-Yel) Urine Clarity Clear (Clear/Hazy) Urine pH 6.0 (5.0-7.0) Ur Specific [place] 1.012 (1.001-1.035) Urine Protein Negative (Neg - Trace) Urine Glucose (UA) Negative (Negative) ABG Interpretation ABG results: 08/04/24 08/05/24 21:15 00:26 ABG pH 7.41 ABG pCO2 35 ABG pO2 86 ABG HCO3 22 ABG O2 Saturation 97 ABG Base Excess -2 VBG pH 7.28 L VBG pCO2 31 L VBG pO2 34 VBG Base Excess -11 L Quality Measures Quality Measures VTE prophylaxis Medications Home Medications and Allergies Home Medications ?Medication ?Instructions ?Recorded ?Confirmed ?Type levothyroxine 50 mcg tablet 50 mcg PO QDAY THYROID #0 tabs 12/02/14 04/03/22 History (Synthroid) clonidine HCl 0.1 mg tablet 1 tab PO QDAY 04/03/22 04/03/22 History diltiazem HCl 120 mg 1 cap PO QDAY 04/03/22 04/03/22 History capsule,extended release 24 hr docusate sodium 100 mg capsule 1 cap PO QDAY PRN Constipation 04/03/22 04/03/22 History duloxetine 60 mg capsule,delayed 1 cap PO QDAY 04/03/22 04/03/22 History release hydrochlorothiazide 12.5 mg capsule 1 cap PO QDAY 04/03/22 04/03/22 History lisinopril 20 mg tablet 1 tab PO QDAY 04/03/22 04/03/22 History metoprolol succinate 25 mg 1 tab PO QDAY 04/03/22 04/03/22 History tablet,extended release 24 hr simvastatin 40 mg tablet 1 tab PO QDAY 04/03/22 04/03/22 History Allergies Allergy/AdvReac Type Severity Reaction Status Date / Time adhesive Allergy Severe HIVES Verified 03/20/23 13:22 doxycycline Allergy Severe HIVES Verified 03/20/23 13:22 Penicillins Allergy Severe Hives Verified 03/20/23 13:22 Visit Medications Acetaminophen (Acetaminophen 325 Mg Tablet) 650 mg PO Q6H PRN PRN Reason: Pain 1-3 or Fever >101.5 Stop: 09/04/24 03:56 Hydrocodone Bitart/Acetaminophen (Hydrocodone/Apap 5/325 Tablet) 1 tab PO Q4HR PRN PRN Reason: PAIN SCALE 4-10(Mod-Sev Stop: 08/10/24 03:56 Heparin Sodium (Porcine) (Heparin Sod Inj 5000 Unit/Ml Vial) 5,000 unit SC Q12HR SONNY Stop: 08/19/24 08:59 Sodium Chloride (Ns) 500 mls @ 999 mls/hr IV .Q31M ONE Stop: 08/05/24 04:38 Ondansetron HCl (Ondansetron Inj 2 Mg/Ml Inj 2 Ml) 4 mg IV Q6H PRN; Protocol PRN Reason: NAUSEA OR VOMITING Stop: 09/04/24 03:56 Discontinued Medications Albuterol/Ipratropium (Albuterol/Ipratropium (Duoneb) Rt Mary 3 Ml Nebu) 3 ml INH X1 ONE Stop: 08/04/24 23:55 Last Admin: 08/05/24 00:12 Dose: 3 ml Furosemide (Furosemide Inj 10 Mg/Ml 4ml Vial) 40 mg IVP X1 ONE Stop: 08/05/24 00:01 Last Admin: 08/05/24 00:41 Dose: 40 mg Ceftriaxone Sodium/Dextrose (Rocephin/D5w 1gm Iv Premix) 50 mls @ 100 mls/hr IV NOW ONE Stop: 08/04/24 23:35 Last Infusion: 08/05/24 00:06 Dose: Infused Azithromycin 500 mg/ Sodium (Chloride) 250 mls @ 250 mls/hr IV X1 ONE Stop: 08/05/24 00:53 Last Infusion: 08/05/24 02:08 Dose: Infused Methylprednisolone Sodium Succinate (Methylprednisolone Sod Succ 62.5 Mg/Ml 2ml Vial) 125 mg IVP X1 ONE Stop: 08/04/24 23:55 Last Admin: 08/05/24 00:41 Dose: 125 mg Morphine Sulfate (Morphine Sulf Inj 10 Mg/Ml Vial) 4 mg IVP X1 ONE Stop: 08/04/24 23:05 Last Admin: 08/04/24 23:36 Dose: 4 mg Nitroglycerin (Nitroglycerin Oint 2% 1 Inch Packet) 0.5 inch TOP X1 ONE Stop: 08/05/24 00:01 Last Admin: 08/05/24 00:41 Dose: 0.5 inch Ondansetron HCl (Ondansetron Inj 2 Mg/Ml Inj 2 Ml) 4 mg IV X1 ONE; Protocol Stop: 08/04/24 23:05 Last Admin: 08/04/24 23:37 Dose: 4 mg Assessment & Plan Assessment Summary: The patient is a 64-year-old female with a past medical history of hypertension, hypothyroidism, opiate dependence, chronic pain disorder and anxiety disorder presented to the ED on 08/04/2024 with a 4-day history of generalized abdominal pain, nausea and diarrhea.. Chest x-ray showed pulmonary vascular congestion and CT showed significant pneumonia in the right base #Gastroenteritis #Acute kidney injury #Type B lactic acidosis #AGMA #Mild hyponatremia The patient presents to the ED with 4-day history of generalized abdominal pain, nausea and diarrhea. She states that pain initially started in the periumbilical region and then progressively worsened to involve all regions of the abdomen, associated with nausea and multiple episodes of diarrhea per day. Patient endorses decreased oral intake based on her symptoms. She denies any recent travels or sick contacts. In the ED, patient was hypothermic with temperature of 95 degrees. CMP significant for creatinine of 1.4 and bicarb of 14.8 with initial lactate level of 3.2 Plan: -Stool culture and WBC -Urine electrolytes and osmolality -Avoid nephrotoxic medications -Monitor renal panel #?New onset CHF On presentation to the ED, the patient was noted to be hypoxic, saturating 93% on room air. On examination, she has very minimal crackles in the right base of the lung, but no JVD or pitting edema. Patient denies any shortness of breath at home. No orthopnea or PND BNP was elevated at 1223 She received IV Lasix x 1 in the ED. Clinically, patient has hypovolemic volume status Plan: -IV Lasix 20mg daily -Strict I&Os -Echocardiogram -Consider cardiology consult #Community-acquired pneumonia The patient endorses nonproductive cough and subjective fever and chills, but denies chest pain, shortness of breath or palpitations. CTA on admission showed significant pneumonia in the right base. COVID, influenza and RSV negative Received IV ceftriaxone and azithromycin in the ED as well as IV Solu-Medrol 125 mg Plan: -Continue with ceftriaxone and azithromycin -Blood cultures -Sputum cultures if patient is able to expectorate -Cocci serology #Acute acalculous cholecystitis CT abdomen/pelvis on admission revealed acute acalculous cholecystitis. Labs have elevated ALT and AST, normal T.bili and ALP Patient has no RUQ pain on palpation, Mike sign negative. Plan: - Consider Gen Surg consult - Add Metronidazole #History of hypertension Patient has a history of hypertension and is on irbesartan 75 mg daily, diltiazem CD to 40 mg daily and metoprolol succinate 25 mg daily. Blood pressure on admission has been borderline, currently normotensive. Plan: -Hold irbesartan in setting of JUAN ANTONIO -Consider resuming some home meds if blood pressure becomes elevated #History of hypothyroidism The patient has a history of hypothyroidism and is on levothyroxine 50 mcg daily. Plan: -TSH -Resume levothyroxine #History of chronic pain #Status post multiple wrist surgeries The patient had right wrist injury about 5 years ago and has had multiple surgeries with revisions. Due to this she has had chronic pain for many years and is on pain medications at home-[place] 10 U-Tox positive for opiates on admission Plan: -Optimize pain management Health maintenance: Dispo: MedSurg Diet: Cardiac DVT: SC Heparin Santoyo: None Lines: Peripheral Med Rec: Pending, f/u PT: Not ordered Code: Full Case was discussed with attending physician, Dr Kumar Rubio MD PGY-1
[2024-08-05 04:25] LABS: Basophils % (Auto) 0 % (0-2.5); Eosinophils % (Auto) 0 % (0-10); Hematocrit 24.1 % (36.0-46.0); Immature Granulocytes % (Auto) 1 % (0-0); Immature Granulocytes Auto 0.07 Thou/mm3 (0.00-0.00); Lymphocytes # (Auto) 0.3 Thou/mm3 (1.0-4.8); Lymphocytes % (Auto) 3 % (10-50); Mean Corpuscular HGB Conc 29.9 g/dl (31.0-37.0); Mean Corpuscular Hemoglobin 19.4 pg (25.0-35.0); Mean Corpuscular Volume 65 fL (80-100); Monocytes # (Auto) 0.4 Thou/mm3 (0.0-0.8); Monocytes % (Auto) 3 % (0-12); Neutrophils % (Auto) 94 % (37-80); Nucleated Red Blood Cell # 0.04 Thou/mm3 (0.00-0.00); Nucleated Red Blood Cell % 0 /100 WBC (0); Platelet Count 293 Thou/mm3 (140-440); Red Blood Count 3.72 Miln/mm3 (4.00-5.20); White Blood Count 11.7 Thou/mm3 (3.6-11.0)
[2024-08-05 04:28] LABS: Hemoglobin 7.2 g/dL (12.0-16.0)
[2024-08-05] MEDS: SODIUM CHLORIDE 0.9% 500 ML 500 ML 999 ML IV (04:30)
[2024-08-05 04:44] LABS: Alanine Aminotransferase 260 U/L (10-49); Albumin, Serum 4.3 gm/dL (3.4-4.8); Albumin/Globulin Ratio 1.4 (1.2-2.2); Alkaline Phosphatase 108 U/L (46-116); Anion Gap 10 (7-16); Aspartate Amino Transferase 188 U/L (0-34); BUN/Creatinine Ratio 10 Ratio (12-20); Bilirubin,Total 0.7 mg/dL (0.3-1.2); Blood Urea Nitrogen 12 mg/dL (9-23); Calcium 8.9 mg/dL (8.3-10.6); Calcium (Corrected) 8.9 mg/dL (8.5-10.1); Carbon Dioxide 25.4 mMol/L (20.0-31.0); Cardiac Risk Estimate 3.8 RATIO (3.7-5.6); Chloride 94 mMol/L (98-107); Cholesterol 125 mg/dL (132-200); Creatinine (Component) 1.2 mg/dL (0.6-1.3); Estimated Creatinine Clearance 44.3 mL/min (>60); Globulin 3.1 gm/dL (2.3-3.5); Glucose 133 mg/dL (74-106); HDL Cholesterol 33 mg/dL (40-60); LDL Cholesterol,Calculated 74 mg/dL (0-130); Magnesium 1.7 mg/dL (1.6-2.6); Osmolality,Calculated 260 (275-295); Potassium 3.6 mMol/L (3.4-5.1); Sodium 129 mMol/L (136-145); Total Protein 7.4 gm/dL (5.7-8.2); Triglycerides 92 mg/dL (30-150); eGFR 51 See Note
--- NOTE | 2024-08-05 05:42 | PRELIM_ITS ---
Gallbladder ultrasound. August 04, 2024 at 2358 hours.Clinical history: RUQ tendernessComparison:No prior study is available for comparison.Findings:The visualized liver is normal in echogenicity with out mass or ductal dilatation. No gallbladder calculus or pericholecystic fluid is identified. There is mild gallbladderwall thickeningmeasuring 4 mm.The common duct is normal in caliber at 4mm. No free fluid is demonstrated on the submitted images.Impression:Findings are suggestive of acute acalculous cholecystitis. Report Electronically Signed By: Bravo Stafford 08/05/2024 5:42:34 AM [EST]
[2024-08-05] MEDS: FUROSEMIDE INJ 10 MG/ML VIAL 2 ML 20 MG IVP (06:45)
[2024-08-05 06:48] LABS: Troponin I < 0.020 ng/mL (0.0-0.045)
--- NOTE | 2024-08-05 06:58 | PC.NURSE ---
REPORT RECEIVED AT THIS TIME; PER REPORT, PT COMING IN FOR ABD PAIN; PT NAVARRETE HX OF HIATAL HERNIA SO PT THOUGHT THAT WAS THE REASON FOR HER PAIN; UPON ARRIVAL, PT WAS PALE AND COLD RECAL TEMP INITIALLY WAS 95F. PT PLACED ON MARIELOS HUGGER BUT STOPPED AT MIDNIGHT BC PT'S TEMP NORMALIZED. PCT OF CHEST SHOWED CHF, WHICH PT WAS UNAWARE OF. PT ADMITTED FOR HYPOTHERMIA SECONDARY TO SEPSIS PNEUMONIA. PT CONNECTED TO MONITORS AT THIS TIME.
--- NOTE | 2024-08-05 08:30 | PC.NURSE ---
SPOKE TO DR. BERNAL ON THE PHONE TO CLARIFY DIET ORDER AND MADE AWARE THAT PT HAS A DIET ORDER BUT PLAN OF CARE INDICATES NEED FOR CONSULT WITH GENERAL SURGERY S/P ACUTE ACALCULOUS CHOLECYSTITIS. PER DR. AMHAN, KEEP PT NPO FOR NOW; I WILL TALK TO GENERAL SURGERY AND CALL YOU BACK TO LET YOU KNOW IF PT CAN EAT.
[2024-08-05] MEDS: HEPARIN SOD INJ 5000 UNIT/ML VIAL SC ×2 (08:39→20:51)
[2024-08-05] MEDS: metroNIDAZOLE 250 MG TABLET 500 MG PO (08:39)
[2024-08-05] MEDS: HYDROcodone/APAP 5/325 TABLET 1 TAB PO ×2 (08:41→13:24)
--- NOTE | 2024-08-05 10:05 | PD.SURCONS ---
HPI Consult details Consult date: 08/05/24 Reason for consultation narrative: The patient was seen in consultation for a possible acalculous cholecystitis History of present illness: Patient is not complaining of right upper quadrant pain but she has pain in the other portion of the abdomen associated with diarrhea Meds Home Medications and Allergies Home Medications ?Medication ?Instructions ?Recorded ?Confirmed ?Type levothyroxine 50 mcg tablet 50 mcg PO QDAY THYROID #0 tabs 12/02/14 04/03/22 History (Synthroid) clonidine HCl 0.1 mg tablet 1 tab PO QDAY 04/03/22 04/03/22 History diltiazem HCl 120 mg 1 cap PO QDAY 04/03/22 04/03/22 History capsule,extended release 24 hr docusate sodium 100 mg capsule 1 cap PO QDAY PRN Constipation 04/03/22 04/03/22 History duloxetine 60 mg capsule,delayed 1 cap PO QDAY 04/03/22 04/03/22 History release hydrochlorothiazide 12.5 mg capsule 1 cap PO QDAY 04/03/22 04/03/22 History lisinopril 20 mg tablet 1 tab PO QDAY 04/03/22 04/03/22 History metoprolol succinate 25 mg 1 tab PO QDAY 04/03/22 04/03/22 History tablet,extended release 24 hr simvastatin 40 mg tablet 1 tab PO QDAY 04/03/22 04/03/22 History Allergies Allergy/AdvReac Type Severity Reaction Status Date / Time adhesive Allergy Severe HIVES Verified 03/20/23 13:22 doxycycline Allergy Severe HIVES Verified 03/20/23 13:22 Penicillins Allergy Severe Hives Verified 03/20/23 13:22 Exam Vital Signs Temp Pulse Resp BP Pulse Ox O2 Del Method O2 Flow Rate 97.9 F 73 14 131/72 H 97 Oxy Mask 7 08/05/24 08:46 08/05/24 08:46 08/05/24 08:46 08/05/24 08:46 08/05/24 08:46 08/05/24 08:46 08/05/24 08:46 Routine Abdominal Exam Comments: Examination of the abdomen showed no tenderness in the right upper quadrant Results Results: Laboratory Laboratory Narrative: WBC is within normal limits Results: Imaging Imaging narrative: Ultrasound and CT scan showed thickening of the gallbladder wall with no stones Assessment & Plan Additional Assessment Additional comments: Impression: Possible acalculous cholecystitis as per the radiologist Plan Plan: I suggest we order HIDA scan. Patient does not require any surgical intervention because she is not tender over the right upper quadrant. We shall reevaluate her with a HIDA scan results
--- NOTE | 2024-08-05 11:08 | XR_ITS ---
Examination: ELADIO, hepatobiliary radioisotope scan Gallbladder ejection fraction study. Date and time of exam: August 05, 2024 1517 hrs. Indications: Generalized abdominal pain nausea and diarrhea beginning 4 days ago Technique: 5.9 mCi of 99M Hepatolite administered. Serial imaging then obtained from immediate through 60 minutes. 1.4 mcg selective catheter Kinevac administered for gallbladder ejection fraction study. Findings: Radioisotope activity within the liver is reasonably homogenous. Gallbladder, common bile duct small bowel activity noted Impression: Gallbladder activity Abnormal gallbladder ejection fraction, 14%, normal greater than 35%
[2024-08-05 11:44] LABS: Path Review Blood Smear Sent to Pathologist
[2024-08-05 14:31] LABS: Cocci Serology, IgM Negative (Negative)
--- NOTE | 2024-08-05 14:38 | ESPR_ITS ---
Documentation for date of: 08/05/24 Subjective Subjective Interval history: Patient was seen and examined at bedside. No acute events overnight. Continues to complain of generalized abdominal pain. Minimal diarrhea last few days. Semisoft 1/day. Due to weakness patient has Santoyo catheter placed. Dr. Arcos was consulted for acalculous cholecystitis. Recommended HIDA scan which is pending. Currently patient on 6 L nasal cannula saturating at 93 to 95%. States that she has recently started experiencing shortness of breath with minimal physical activity. Echo revealed EF 55-60%, moderate LA dilatation, moderate MR, pleural effusion present. Chest CTA positive for mild heart failure, bibasilar pneumonia moderate right sided pleural effusion. Negative for PE. Stop azithromycin and ceftriaxone. Start IV Levo 500mg daily until 08/12/24 (7 days) for CAP. Labs significant for WBC 11.7, hemoglobin 7.2, sodium 129, potassium 3.6, AST 188, ALT 260. BNP 1223. Review of systems otherwise negative except what is mentioned above. Exam Vital Signs Temp Pulse Resp BP Pulse Ox O2 Del Method O2 Flow Rate 97.2 F 84 19 136/61 H 94 L Room Air 7 08/05/24 12:00 08/05/24 12:00 08/05/24 12:00 08/05/24 12:00 08/05/24 12:00 08/05/24 12:00 08/05/24 08:46 Narrative Exam GENERAL: AAOX3 NEURO: QUALITY AND RELIABILITY ENGINEER grossly intact, moves extremities x4 HEENT: Dry mucosa. Eyes open, symmetrical, & clear CARDIO: No chest pain on palpation. Heart RRR, no obvious murmurs PULM: Minimal crackles, worse on the right base, on NC GI: Abdomen soft, nondistended, no tenderness, normal BS present URO/ELECTRIC RANGE ASSEMBLER:: No further abnormalities noted. SKIN/MSK/EXT: Right wrist joint with limited range of motion Objective Labs 08/06/24 04:30 08/06/24 04:30 Labs: Laboratory Results - last 24 hr 08/04/24 08/04/24 08/04/24 21:15 21:19 21:30 WBC 8.3 RBC 3.90 L Hgb 7.6 L Hct 26.1 L MCV 67 L MCH 19.5 L MCHC 29.1 L RDW Std Deviation 45.0 Plt Count 339 Neut % (Auto) 75 Lymph % (Auto) 13 [place] % (Auto) 10 Eos % (Auto) 0 Baso % (Auto) 0 Neut # (Auto) 6.3 Lymph # (Auto) 1.1 [place] # (Auto) 0.9 H Eos # (Auto) 0.0 Baso # (Auto) 0.0 Immature Gran # (Auto) 0.10 H Absolute Nucleated RBC 0.14 H Immature Gran % 1 H Nucleated RBC % 2 H Smear Path Review ESR PT 14.6 H INR 1.4 H APTT 23.4 D-Dimer Puncture Site ABG pH ABG pCO2 ABG pO2 ABG HCO3 ABG O2 Saturation ABG Base Excess VBG pH 7.28 L VBG pCO2 31 L VBG pO2 34 VBG O2 Sat (Pily) 50 L VBG Base Excess -11 L Oxygen Liter Flow FiO2 Sodium 124 L Potassium 4.6 Chloride 92 L Carbon Dioxide 14.8 L* Anion Gap 17 H BUN 14 Creatinine 1.4 H Estim Creat Clear Calc 38.0 L eGFR 43 L BUN/Creatinine Ratio 10 L Glucose 108 H Calculated Osmolality 251 L Lactic Acid Calcium 9.5 Corrected Calcium 9.5 Magnesium 2.0 Total Bilirubin 0.6 AST 171 H ALT 264 H Alkaline Phosphatase 109 Lactate Dehydrogenase 309 H Troponin I < 0.020 C-Reactive Prot, Quant B-Natriuretic Peptide 1265 H* Total Protein 7.3 Albumin 4.2 Globulin 3.1 Albumin/Globulin Ratio 1.4 Triglycerides Cholesterol LDL Cholesterol, Calc HDL Cholesterol Cholesterol/HDL Ratio Procalcitonin TSH 3.66 Ur Collection Type Clean Catch Urine Color Lt-Yellow Urine Clarity Clear Urine pH 6.0 Ur Specific [place] 1.012 Urine Protein Negative Urine Glucose (UA) Negative Urine Ketones 1+ A Urine Blood Negative Urine Nitrite Positive Urine Bilirubin Negative Urine Urobilinogen (Auto) Negative Ur Leukocyte Esterase Positive Urine RBC 1 Urine WBC 4 Ur Squamous Epith Cells 0 Urine Bacteria Rare Hyaline Casts < 1 Urine Opiates Screen Positive A Urine Fentanyl Screen Negative Ur Barbiturates Screen Negative U Amphetamin/Meth Scrn Negative U Benzodiazepines Scrn Negative U Cocaine Metab Screen Negative U Marijuana (THC) Screen Positive A Coccidioides IgM Ab RSV Rapid Blood Type A Positive Antibody Screen NEGATIVE Blood Bank Wristband ID Yes 08/04/24 08/05/24 08/05/24 23:37 00:26 03:10 WBC 11.7 H D RBC 3.72 L Hgb 7.2 L Hct 24.1 L MCV 65 L MCH 19.4 L MCHC 29.9 L RDW Std Deviation 42.0 Plt Count 293 D Neut % (Auto) 94 H Lymph % (Auto) 3 L [place] % (Auto) 3 Eos % (Auto) 0 Baso % (Auto) 0 Neut # (Auto) 11.0 H Lymph # (Auto) 0.3 L [place] # (Auto) 0.4 Eos # (Auto) 0.0 Baso # (Auto) 0.0 Immature Gran # (Auto) 0.07 H Absolute Nucleated RBC 0.04 H Immature Gran % 1 H Nucleated RBC % 0 Smear Path Review Sent to Pathologist ESR 27 PT INR APTT D-Dimer 2470 H Puncture Site Right Radial ABG pH 7.41 ABG pCO2 35 ABG pO2 86 ABG HCO3 22 ABG O2 Saturation 97 ABG Base Excess -2 VBG pH VBG pCO2 VBG pO2 VBG O2 Sat (Pily) VBG Base Excess Oxygen Liter Flow 2 FiO2 21 Sodium 129 L Potassium 3.6 D Chloride 94 L Carbon Dioxide 25.4 Anion Gap 10 BUN 12 Creatinine 1.2 Estim Creat Clear Calc 44.3 L eGFR 51 L BUN/Creatinine Ratio 10 L Glucose 133 H Calculated Osmolality 260 L Lactic Acid 3.2 H Calcium 8.9 Corrected Calcium 8.9 Magnesium 1.7 1.7 Total Bilirubin 0.7 AST 188 H ALT 260 H Alkaline Phosphatase 108 Lactate Dehydrogenase Troponin I C-Reactive Prot, Quant 1.2 H B-Natriuretic Peptide 1223 H* Total Protein 7.4 Albumin 4.3 Globulin 3.1 Albumin/Globulin Ratio 1.4 Triglycerides 92 Cholesterol 125 L LDL Cholesterol, Calc 74 HDL Cholesterol 33 L Cholesterol/HDL Ratio 3.8 Procalcitonin 0.65 H TSH Ur Collection Type Urine Color Urine Clarity Urine pH Ur Specific [place] Urine Protein Urine Glucose (UA) Urine Ketones Urine Blood Urine Nitrite Urine Bilirubin Urine Urobilinogen (Auto) Ur Leukocyte Esterase Urine RBC Urine WBC Ur Squamous Epith Cells Urine Bacteria Hyaline Casts Urine Opiates Screen Urine Fentanyl Screen Ur Barbiturates Screen U Amphetamin/Meth Scrn U Benzodiazepines Scrn U Cocaine Metab Screen U Marijuana (THC) Screen Coccidioides IgM Ab RSV Rapid Negative Blood Type Antibody Screen Blood Bank Wristband ID 08/05/24 08/05/24 03:20 06:23 WBC RBC Hgb Hct MCV MCH MCHC RDW Std Deviation Plt Count Neut % (Auto) Lymph % (Auto) [place] % (Auto) Eos % (Auto) Baso % (Auto) Neut # (Auto) Lymph # (Auto) [place] # (Auto) Eos # (Auto) Baso # (Auto) Immature Gran # (Auto) Absolute Nucleated RBC Immature Gran % Nucleated RBC % Smear Path Review ESR PT INR APTT D-Dimer Puncture Site ABG pH ABG pCO2 ABG pO2 ABG HCO3 ABG O2 Saturation ABG Base Excess VBG pH VBG pCO2 VBG pO2 VBG O2 Sat (Pily) VBG Base Excess Oxygen Liter Flow FiO2 Sodium Potassium Chloride Carbon Dioxide Anion Gap BUN Creatinine Estim Creat Clear Calc eGFR BUN/Creatinine Ratio Glucose Calculated Osmolality Lactic Acid 0.9 Calcium Corrected Calcium Magnesium Total Bilirubin AST ALT Alkaline Phosphatase Lactate Dehydrogenase Troponin I < 0.020 C-Reactive Prot, Quant B-Natriuretic Peptide Total Protein Albumin Globulin Albumin/Globulin Ratio Triglycerides Cholesterol LDL Cholesterol, Calc HDL Cholesterol Cholesterol/HDL Ratio Procalcitonin TSH Ur Collection Type Urine Color Urine Clarity Urine pH Ur Specific [place] Urine Protein Urine Glucose (UA) Urine Ketones Urine Blood Urine Nitrite Urine Bilirubin Urine Urobilinogen (Auto) Ur Leukocyte Esterase Urine RBC Urine WBC Ur Squamous Epith Cells Urine Bacteria Hyaline Casts Urine Opiates Screen Urine Fentanyl Screen Ur Barbiturates Screen U Amphetamin/Meth Scrn U Benzodiazepines Scrn U Cocaine Metab Screen U Marijuana (THC) Screen Coccidioides IgM Ab Negative RSV Rapid Blood Type Antibody Screen Blood Bank Wristband ID ABG Interpretation ABG results: 08/04/24 08/05/24 21:15 00:26 ABG pH 7.41 ABG pCO2 35 ABG pO2 86 ABG HCO3 22 ABG O2 Saturation 97 ABG Base Excess -2 VBG pH 7.28 L VBG pCO2 31 L VBG pO2 34 VBG Base Excess -11 L Quality Measures Quality Measures none Assessment & Plan Assessment Current Active Medications: Generic Name Dose Route Start Last Admin Trade Name Freq PRN Reason Stop Dose Admin Acetaminophen 650 mg 08/05/24 03:57 Acetaminophen 325 Mg Tablet PO 09/04/24 03:56 Q6H PRN Pain 1-3 or Fever >101.5 Hydrocodone Bitart/Acetaminophen 1 tab 08/05/24 03:57 08/05/24 13:24 Hydrocodone/Apap 5/325 Tablet PO 08/10/24 03:56 1 tab Q4HR PRN Administration PAIN SCALE 4-10(Mod-Sev Azithromycin 250 mg 08/05/24 21:00 Azithromycin 250 Mg Tablet PO 08/12/24 08:59 QPM SONNY Furosemide 20 mg 08/05/24 06:15 08/05/24 06:45 Furosemide Inj 10 Mg/Ml Vial 2 Ml IVP 09/04/24 06:14 20 mg BIDD SONNY Administration Heparin Sodium (Porcine) 5,000 unit 08/05/24 09:00 08/05/24 08:39 Heparin Sod Inj 5000 Unit/Ml Vial SC 08/19/24 08:59 5,000 unit Q12HR SONNY Administration Ceftriaxone Sodium/Dextrose 50 mls @ 100 mls/hr 08/05/24 21:00 Rocephin/D5w 1gm Iv Premix IV 08/12/24 20:59 QPM SONNY Metronidazole 500 mg 08/05/24 09:00 08/05/24 08:39 Metronidazole 250 Mg Tablet PO 08/12/24 08:59 500 mg BID SONNY Administration Ondansetron HCl 4 mg 08/05/24 03:57 Ondansetron Inj 2 Mg/Ml Inj 2 Ml IV 09/04/24 03:56 Q6H PRN NAUSEA OR VOMITING Protocol Plan The patient is a 64-year-old female with a past medical history of hypertension, hypothyroidism, opiate dependence, chronic pain disorder and anxiety disorder presented to the ED on 08/04/2024 with a 4-day history of generalized abdominal pain, nausea and diarrhea.. Chest x-ray showed pulmonary vascular congestion and CT showed significant pneumonia in the right base #AHRF 2/2 CAP vs Right pleural effusion Experiencing shortness of breath, desaturating below 90% O2, and started on 6 to 7 L nasal cannula. Does not use any home oxygen. Echo revealed EF 55-60%, moderate LA dilatation, moderate MR, pleural effusion present. Chest CTA positive for mild heart failure, bibasilar pneumonia moderate right sided pleural effusion. Negative for PE. -stop azithromycin and ceftriaxone -start IV levofloxacin 250mg daily x7days (until 08/12/24) #Acute acalculous cholecystitis # Transaminitis Diffuse abdominal pain, nausea, no vomiting, no right upper quadrant pain, no Mike sign. AST 188, ALT 260 -Dr. Arcos was consulted--does not recommend surgery -HIDA pending. -Stop metronidazole #Hyponatremia 2/2 fluid loss Sodium improved after receiving fluids in the ED. Today 129 -Daily CMP # Normocytic anemia Hemoglobin 7.2, MCV 88. -Follow-up with ferritin and iron panel I -Follow-up outpatient #Hx hypertension #Hx hypothyroidism med rec pending #History of chronic pain #Status post multiple wrist surgeries #Opioid dependence The patient had right wrist injury about 5 years ago and has had multiple surgeries with revisions. Due to this she has had chronic pain for many years and is on pain medications at home-[place] 10 U-Tox positive for opiates on admission -start q6hr PRN Health maintenance: Dispo: AHRF, HIDA pending DVT prophylaxis: Subcu heparin CODE STATUS: Full code Diet: NPO until HIDA The patient's management plan was discussed with my attending physician Dr. Marquez and senior Dr. So. Jazmin Pascal, PGY-1 L Ms Rahman is a 64 year old female with a past medical history of hypertension, hypothyroidism, opiate dependence, chronic pain disorder and anxiety disorder who presented to the ED on 08/04/2024 with acute shortness of breath. She is admitted for AHRF secondary to RT lower pneumonia and RT sided pleural effusion. She was also found to have acalculous cholecystitis on Galbladder US and Chest CT. Dr Arcos is consulted, appreciate recommendations. Will foloow up with HIDA scan, patient NPO. Diet to be resumed post HIDA. Antibiotics changed to Levaquin only @ 500mg qD, given CrCl <60. Patient examined and case discussed with the team including attending physician. Note reviewed, I agree with the care plan as documented above. - Jorge So MD, PGY 2 Attending Provider Attestation/Addendum I have examined the patient, reviewed labs and imaging findings, discussed the case with the resident(s), and reviewed entered orders. I agree with the plan of care as outlined in this note, with these additional summaries/recommendations: Patient seen at bedside. Patient admitted overnight for acute hypoxic respiratory failure requiring 6 to 7 L. Etiology secondary to community- acquired pneumonia from gram-negative rods versus right pleural effusion. Unclear etiology for pleural effusion and we will discuss with patient this if she is in agreement for thoracentesis with fluid analysis and cytology. Blood cultures pending. CTA was negative for PE but did reveal bibasilar pneumonia. Continue IV antibiotics. Echocardiogram obtained which showed dilated LV with ejection fraction of 55 to 60%. Imaging studies also revealed acute acalculous cholecystitis although relatively benign upper abdominal exam. General surgery was consulted and recommends HIDA scan and we will follow-up results when available. Hypovolemic hyponatremia present on admission and sodium currently 129. Continue IV fluids and monitor for resolution. Lactic acid acidosis resolved. Continue home medications. Repeat hematology and chemistry panel in AM. Dr. Marquez
[2024-08-05 15:53] LABS: Ferritin 35 ng/mL (7.3-270.7); Total Iron Binding Capacity 437 mcg/dL (250-425)
[2024-08-05 16:03] LABS: Iron 19 mcg/dL (50-170); Percent Iron Saturation 4 % (20-55); Unsaturated Iron Binding 418 (225-295)
--- NOTE | 2024-08-05 16:27 | PC.NURSE ---
Caregiver at bedside with further insight into patient PMH. Noting extensive psychological trauma with severe anxiety, depression, PTSD and possible bipolar disorder but taking no medication. Patient does experience panic attacks and has been in a state of panic for a few days prior to arrival to ED. Also notes iron deficiency anemia requiring iron infusions. Patient is also vegan. Patient also drinks beers daily. No more than 6 a day.
--- NOTE | 2024-08-05 16:46 | PC.NURSE ---
Professor Of German Lulu can be reached at [phone]
[2024-08-05] MEDS: LEVOFLOXACIN/D5W 500 MG IVPB 500 MG/100 ML BAG 100 MG IV (17:57)
[2024-08-05] MEDS: LORazepam 0.5 MG TABLET 1 MG PO (19:14)
[2024-08-05 19:20] LABS: Chloride,Urine Random < 20.0 mMol/L (55.0-125.0); Potassium,Urine Random 34 mMol/L (12-62); Sodium,Urine Random < 15.0 mMol/L (20.0-110.0)
[2024-08-05] MEDS: DULoxetine HCL 30 MG CAPSULE 60 MG PO (20:50)
[2024-08-05] MEDS: LEVOTHYROXINE SODIUM 25 MCG TABLET 50 MCG PO (20:50)
[2024-08-05] MEDS: PANTOPRAZOLE 40 MG TABLET PO (20:51)
[2024-08-05] MEDS: METOPROLOL SUCCINATE XL 25 MG TABCR PO (20:51)
[2024-08-06] VITALS (13 sets, daily range): BP systolic 111–149; BP diastolic 50–93; PULSE 65–85; RESP 17–19; TEMP 36.1–36.9; O2SAT 92–100
[2024-08-06 05:40] LABS: Basophils % (Auto) 0 % (0-2.5); Eosinophils % (Auto) 0 % (0-10); Immature Granulocytes % (Auto) 1 % (0-0); Immature Granulocytes Auto 0.09 Thou/mm3 (0.00-0.00); Lymphocytes # (Auto) 0.9 Thou/mm3 (1.0-4.8); Lymphocytes % (Auto) 6 % (10-50); Mean Corpuscular HGB Conc 29.8 g/dl (31.0-37.0); Mean Corpuscular Hemoglobin 19.5 pg (25.0-35.0); Mean Corpuscular Volume 65 fL (80-100); Monocytes # (Auto) 1.4 Thou/mm3 (0.0-0.8); Monocytes % (Auto) 10 % (0-12); Neutrophils % (Auto) 83 % (37-80); Nucleated Red Blood Cell # 0.04 Thou/mm3 (0.00-0.00); Nucleated Red Blood Cell % 0 /100 WBC (0); Platelet Count 291 Thou/mm3 (140-440); RDW Standard Deviation 41.9 fL (36.4-46.3); Red Blood Count 3.44 Miln/mm3 (4.00-5.20); White Blood Count 13.3 Thou/mm3 (3.6-11.0)
[2024-08-06 05:47] LABS: Hematocrit 22.5 % (36.0-46.0); Hemoglobin 6.7 g/dL (12.0-16.0)
--- NOTE | 2024-08-06 05:51 | PC.NURSE ---
Notify MD Quintanilla of pt's Hgb 6.7. No new orders made.
[2024-08-06 06:20] LABS: Alanine Aminotransferase 185 U/L (10-49); Albumin, Serum 3.8 gm/dL (3.4-4.8); Albumin/Globulin Ratio 1.3 (1.2-2.2); Alkaline Phosphatase 92 U/L (46-116); Anion Gap 10 (7-16); Aspartate Amino Transferase 94 U/L (0-34); BUN/Creatinine Ratio 14 Ratio (12-20); Bilirubin,Total 0.7 mg/dL (0.3-1.2); Blood Urea Nitrogen 13 mg/dL (9-23); Calcium 8.7 mg/dL (8.3-10.6); Calcium (Corrected) 8.9 mg/dL (8.5-10.1); Carbon Dioxide 27.4 mMol/L (20.0-31.0); Chloride 92 mMol/L (98-107); Creatinine (Component) 0.9 mg/dL (0.6-1.3); Estimated Creatinine Clearance 58.6 mL/min (>60); Globulin 2.9 gm/dL (2.3-3.5); Glucose 116 mg/dL (74-106); Magnesium 1.7 mg/dL (1.6-2.6); Osmolality,Calculated 260 (275-295); Phosphorous 3.3 mg/dL (2.4-5.1); Potassium 2.9 mMol/L (3.4-5.1); Sodium 129 mMol/L (136-145); Total Protein 6.7 gm/dL (5.7-8.2); eGFR > 60 See Note
[2024-08-06] MEDS: LORazepam 0.5 MG TABLET 1 MG PO ×2 (07:45→21:22)
[2024-08-06] MEDS: POTASSIUM CHLORIDE 20 mEq TABCR 40 MEQ PO ×2 (09:41→13:44)
[2024-08-06] MEDS: HEPARIN SOD INJ 5000 UNIT/ML VIAL SC (09:42)
[2024-08-06] MEDS: LEVOFLOXACIN/D5W 500 MG IVPB 500 MG/100 ML BAG 100 MG IV (09:43)
[2024-08-06] MEDS: CHOLECALCIFEROL (Vitamin D3) 1,000 IU TABLET 5000 IU PO (10:00)
[2024-08-06 12:00] LABS: Hematocrit 22.9 % (36.0-46.0)
[2024-08-06 12:11] LABS: Hemoglobin 6.9 g/dL (12.0-16.0)
[2024-08-06] MEDS: HYDROcodone/APAP 5/325 TABLET 1 TAB PO ×2 (14:15→20:32)
--- NOTE | 2024-08-06 16:06 | PC.SS ---
Miryam Gillis is a 64- year old female admitted to [facility] for Acute Hypoxic respiratory failure. SS conducted bedside contact with the patient to complete initial assessment and to discuss discharge planning. SW used all precautionary measures to complete initial. Role and reason for the contact was explained to Miryam. Pt is alert and oriented times 4. Demographic information was verified with Miryam. Yolanda verified resides at address on facesheet and telephone number is correct. Pt needs assistance with some ADLs but is mostly independent. Pt lives with Starla Wallacejohn, and identified decision maker. Pt has Lulu Weeks, sheep clipper, also present periodically to assist with some tasks Pt does not use DME; Pt was using O2 at time of assessment; Pt confirmed does not have O2 provider at home and will need to be ordered, if necessary. Pt has mental health diagnosis of manic depression and severe anxiety. Pt sees a therapist and is prescribed prescription from PCP. Pt states does not have history of substance use. Pt uses [facility]. [facility] [employer] Directive was not discussed. Pt will have family transport home, Pt PCP is Dr Fernando oRland, pt states she met with Dr. Roland a day or so before being admitted to hospital. professional services manager will remain available for any additional needs.? Address: Confirmed on face sheet DC Plan: Home PCP: Dr Fernando Roland Emergency Contact: Starla Wallace john,
--- NOTE | 2024-08-06 17:01 | PC.SS ---
Spoke to Zara, Registration, to add Lulu Weeks, caregiver,
--- NOTE | 2024-08-06 17:42 | ESPR_ITS ---
Documentation for date of: 08/06/24 Subjective Subjective Interval history: Patient was seen and examined at bedside. No acute events overnight. Patient states that she is feeling better today with no abdominal pain, improved headache. Complains of difficulty sleeping--hold hydroxyzine and start Benadryl 25 mg as needed for insomnia HIDA scan negative for any biliary tract obstruction. Continue IV levofloxacin 500 mg daily for CAP. Patient no longer requiring oxygen via mask or nasal cannula. Saturating adequately on room air. Hemoglobin today down trended to 6.7. She denies any blood in the stool states that colonoscopy is scheduled for sometime this month or previously has had no imaging done for evaluation of any possible GI bleed. Fecal occult pending. Patient undergoes outpatient iron infusions but has not seen any specialist for detailed workup for iron deficiency. Give 1 PRBC and repeat H&H. Sodium 129, potassium 2.9 repleted with 40+40. Continue to monitor potassium. Review of systems otherwise negative except what is mentioned above. Exam Vital Signs Temp Pulse Resp BP Pulse Ox O2 Del Method O2 Flow Rate 98.5 F 85 18 142/50 H 98 Room Air 5 08/06/24 17:39 08/06/24 17:39 08/06/24 17:39 08/06/24 17:39 08/06/24 17:39 08/06/24 16:00 08/05/24 20:46 Narrative Exam GENERAL: AAOX3 NEURO: BENZOL STILL OPERATOR grossly intact, moves extremities x4 HEENT: Dry mucosa. Eyes open, symmetrical, & clear CARDIO: No chest pain on palpation. Heart RRR, no obvious murmurs PULM: no crackles, on room air GI: Abdomen soft, nondistended, no tenderness, normal BS present URO/WASTEWATER DESIGN ENGINEER:: No further abnormalities noted. SKIN/MSK/EXT: Right wrist joint with limited range of motion Objective Labs 08/07/24 05:32 08/07/24 05:32 Labs: Laboratory Results - last 24 hr 08/04/24 08/05/24 08/06/24 21:15 18:15 04:30 WBC 13.3 H RBC 3.44 L Hgb 6.7 L* Hct 22.5 L MCV 65 L MCH 19.5 L MCHC 29.8 L RDW Std Deviation 41.9 Plt Count 291 Neut % (Auto) 83 H Lymph % (Auto) 6 L [place] % (Auto) 10 Eos % (Auto) 0 Baso % (Auto) 0 Neut # (Auto) 11.0 H Lymph # (Auto) 0.9 L [place] # (Auto) 1.4 H Eos # (Auto) 0.0 Baso # (Auto) 0.0 Immature Gran # (Auto) 0.09 H Absolute Nucleated RBC 0.04 H Immature Gran % 1 H Nucleated RBC % 0 Sodium 129 L Potassium 2.9 L D Chloride 92 L Carbon Dioxide 27.4 Anion Gap 10 BUN 13 Creatinine 0.9 Estim Creat Clear Calc 58.6 L eGFR > 60 BUN/Creatinine Ratio 14 Glucose 116 H Calculated Osmolality 260 L Calcium 8.7 Corrected Calcium 8.9 Phosphorus 3.3 Magnesium 1.7 Total Bilirubin 0.7 AST 94 H ALT 185 H Alkaline Phosphatase 92 Total Protein 6.7 Albumin 3.8 D Globulin 2.9 Albumin/Globulin Ratio 1.3 Ur Random Sodium < 15.0 L Ur Random Potassium 34 Ur Random Chloride < 20.0 L Blood Type A Positive Antibody Screen NEGATIVE Crossmatch See Detail Blood Bank Wristband ID Yes 08/06/24 11:20 WBC RBC Hgb 6.9 L* Hct 22.9 L MCV MCH MCHC RDW Std Deviation Plt Count Neut % (Auto) Lymph % (Auto) [place] % (Auto) Eos % (Auto) Baso % (Auto) Neut # (Auto) Lymph # (Auto) [place] # (Auto) Eos # (Auto) Baso # (Auto) Immature Gran # (Auto) Absolute Nucleated RBC Immature Gran % Nucleated RBC % Sodium Potassium Chloride Carbon Dioxide Anion Gap BUN Creatinine Estim Creat Clear Calc eGFR BUN/Creatinine Ratio Glucose Calculated Osmolality Calcium Corrected Calcium Phosphorus Magnesium Total Bilirubin AST ALT Alkaline Phosphatase Total Protein Albumin Globulin Albumin/Globulin Ratio Ur Random Sodium Ur Random Potassium Ur Random Chloride Blood Type Antibody Screen Crossmatch Blood Bank Wristband ID ABG Interpretation ABG results: 08/04/24 08/05/24 21:15 00:26 ABG pH 7.41 ABG pCO2 35 ABG pO2 86 ABG HCO3 22 ABG O2 Saturation 97 ABG Base Excess -2 VBG pH 7.28 L VBG pCO2 31 L VBG pO2 34 VBG Base Excess -11 L Quality Measures Quality Measures none Assessment & Plan Assessment Current Active Medications: Generic Name Dose Route Start Last Admin Trade Name Freq PRN Reason Stop Dose Admin Acetaminophen 650 mg 08/05/24 03:57 Acetaminophen 325 Mg Tablet PO 09/04/24 03:56 Q6H PRN Pain 1-3 or Fever >101.5 Hydrocodone Bitart/Acetaminophen 1 tab 08/05/24 15:02 Hydrocodone/Apap 10/325 Tab PO 08/10/24 17:59 Q6HR PRN Pain 7-10 Hydrocodone Bitart/Acetaminophen 1 tab 08/05/24 15:05 08/06/24 14:15 Hydrocodone/Apap 5/325 Tablet PO 08/10/24 03:56 1 tab Q4HR PRN Administration PAIN SCALE 4-6 Docusate Sodium 100 mg 08/05/24 17:04 Docusate Sod 100 Mg Capsule PO 09/04/24 17:03 QDAY PRN Constipation Protocol Duloxetine HCl 60 mg 08/05/24 21:00 08/05/24 20:50 Duloxetine Hcl 30 Mg Capsule PO 09/04/24 20:59 60 mg HS SONNY Administration Furosemide 20 mg 08/05/24 06:15 08/05/24 06:45 Furosemide Inj 10 Mg/Ml Vial 2 Ml IVP 09/04/24 06:14 20 mg BIDD SONNY Administration Hydroxyzine Pamoate 25 mg 08/05/24 18:44 Hydroxyzine Pamoate 25 Mg Capsule (Non-Formulary) PO Q6H PRN Anxiety Levofloxacin/Dextrose 500 mg in 100 mls @ 100 mls/hr 08/05/24 15:30 08/06/24 09:43 Levaquin Ivpb IV 08/12/24 15:29 100 mls/hr QDAY SONNY Administration Levothyroxine Sodium 50 mcg 08/05/24 21:00 08/05/24 20:50 Levothyroxine Sodium 25 Mcg Tablet PO 09/04/24 20:59 50 mcg QDAY@2100 SONNY Administration Lorazepam 1 mg 08/05/24 17:04 08/06/24 07:45 Lorazepam 0.5 Mg Tablet PO 08/10/24 17:03 1 mg BID PRN Administration Anxiety Metoprolol Succinate 25 mg 08/05/24 21:00 08/05/24 20:51 Metoprolol Succinate Xl 25 Mg Tabcr PO 09/04/24 20:59 25 mg QDAY@2100 SONNY Administration Ondansetron HCl 4 mg 08/05/24 03:57 Ondansetron Inj 2 Mg/Ml Inj 2 Ml IV 09/04/24 03:56 Q6H PRN NAUSEA OR VOMITING Protocol Pantoprazole Sodium 40 mg 08/05/24 21:00 08/05/24 20:51 Pantoprazole 40 Mg Tablet PO 09/04/24 20:59 40 mg QDAY@2100 SONNY Administration Vitamin D 5,000 iu 08/06/24 09:00 08/06/24 10:00 Cholecalciferol (Vitamin D3) 1,000 Iu Tablet PO 09/05/24 08:59 5,000 iu QDAY SONNY Administration Plan The patient is a 64-year-old female with a past medical history of hypertension, hypothyroidism, opiate dependence, chronic pain disorder and anxiety disorder presented to the ED on 08/04/2024 with a 4-day history of generalized abdominal pain, nausea and diarrhea.. Chest x-ray showed pulmonary vascular congestion and CT showed significant pneumonia in the right base #AHRF (resolved) 2/2 CAP vs Right pleural effusion Was Experiencing shortness of breath, desaturating below 90% O2, and started on 6 to 7 L nasal cannula. Does not use any home oxygen. Echo revealed EF 55-60%, moderate LA dilatation, moderate MR, pleural effusion present. Chest CTA positive for mild heart failure, bibasilar pneumonia moderate right sided pleural effusion. Negative for PE. - IV levofloxacin 250mg daily x7days (until 08/12/24) #Acute acalculous cholecystitis # Transaminitis-resolving Diffuse abdominal pain, nausea, no vomiting, no right upper quadrant pain, no Mike sign. AST 188, ALT 260 -Dr. Arcos was consulted--does not recommend surgery -HIDA no obstruction in biliary tract #Hyponatremia 2/2 fluid loss Sodium improved after receiving fluids in the ED. Today 129 -Daily CMP # Normocytic anemia Hemoglobin6.9, MCV 65. -Iron 19, ferritin 35 -Repeat H&H after infusion 1 PRBC -Follow-up outpatient #Hx hypertension #Hx hypothyroidism ?Metoprolol succinate 25 mg daily ?Levothyroxine 50 mcg daily #History of chronic pain #Status post multiple wrist surgeries #Opioid dependence The patient had right wrist injury about 5 years ago and has had multiple surgeries with revisions. Due to this she has had chronic pain for many years and is on pain medications at home-[place] 10 U-Tox positive for opiates on admission -start q6hr PRN Health maintenance: Dispo: pending pRBC transfusion DVT prophylaxis: Subcu heparin CODE STATUS: Full code Diet: Low fat, vegetarian The patient's management plan was discussed with my attending physician Dr. Marquez and senior Dr. So. Jazmin Pascal, PGY-1 L Ms Rahman is a 64-year-old female with a past medical history of hypertension, hypothyroidism, opiate dependence, chronic pain disorder and anxiety disorder who was admitted on 08/04/2024 with a 4-day history of generalized abdominal pain, nausea and diarrhea. Her RUQ pain resolved in the ED, however gall bladder US was remarkable for alcalculous cholecystitis. Chest x-ray showed pulmonary vascular congestion and CT showed significant pneumonia in the right base. She started complaining of SOB while in the ED, and was admitted for acute hypoxic respiratory failure secondary to community-acquired pneumonia from gram-negative rods versus right pleural effusion. CTA was negative for PE but did reveal bibasilar pneumonia. General surgery was consulted and HIDA scan showed gallbladder activity although abnormal EF of 14%. Patient started on Low fat diet post-HIDA. Hospital course complicated by acute microcytic anemia. Hgb 6.7 (baseline 7-8) --> ordered 1U PRBC and FOBT , along with iron panel --> Follow up post-tranfusion H&H. Will get GI consult if FOBT positive. Patient examined and case discussed with the team including attending physician. Note reviewed, I agree with the care plan as documented. - Jorge So MD, PGY 2 Attending Provider Attestation/Addendum I have examined the patient, reviewed labs and imaging findings, discussed the case with the resident(s), and reviewed entered orders. I agree with the plan of care as outlined in this note, with these additional summaries/recommendations: Patient seen at bedside. No acute overnight events. Patient admitted for acute hypoxic respiratory failure. Etiology secondary to community-acquired pneumonia from gram-negative rods versus right pleural effusion. Unclear etiology for pleural effusion and we will discuss with patient about thoracentesis with fluid analysis and cytology. Blood cultures preliminary shows no growth at 24 hours. CTA was negative for PE but did reveal bibasilar pneumonia. Continue IV antibiotics. Echocardiogram obtained which showed dilated LV with ejection fraction of 55 to 60%. Imaging studies also revealed acute acalculous cholecystitis although relatively benign upper abdominal exam. General surgery was consulted and HIDA scan showed gallbladder activity although abnormal EF of 14%. Hypovolemic hyponatremia present on admission and sodium currently 129. Continue IV fluids and monitor for resolution. Lactic acid acidosis resolved. Hospital course complicated by acute on chronic microcytic anemia. Hgb 6.7 this morning. Order 1U PRBC and FOBT plus iron panel. Consult gastroenterology if FOBT positive. Repeat hematology and chemistry panel in AM. Dr. Marquez
[2024-08-06] MEDS: LEVOTHYROXINE SODIUM 25 MCG TABLET 50 MCG PO (20:32)
[2024-08-06] MEDS: DiphenhydrAMINE 25 MG CAPSULE PO (20:32)
[2024-08-06] MEDS: METOPROLOL SUCCINATE XL 25 MG TABCR PO (20:33)
[2024-08-06] MEDS: DULoxetine HCL 30 MG CAPSULE 60 MG PO (20:33)
[2024-08-06] MEDS: PANTOPRAZOLE 40 MG TABLET PO (20:33)
[2024-08-06 21:57] LABS: Hematocrit 31.3 % (36.0-46.0); Hemoglobin 9.5 g/dL (12.0-16.0)
[2024-08-07 04:00] VITALS: BP 133/75; PULSE 64; RESP 18; TEMP 36.4; O2SAT 96
[2024-08-07] MEDS: LORazepam 0.5 MG TABLET 1 MG PO ×2 (05:22→20:22)
[2024-08-07 06:01] LABS: Basophils % (Auto) 0 % (0-2.5); Eosinophils # (Auto) 0.1 Thou/mm3 (0.0-0.5); Eosinophils % (Auto) 1 % (0-10); Hematocrit 30.9 % (36.0-46.0); Hemoglobin 9.4 g/dL (12.0-16.0); Immature Granulocytes % (Auto) 1 % (0-0); Immature Granulocytes Auto 0.09 Thou/mm3 (0.00-0.00); Lymphocytes # (Auto) 2.9 Thou/mm3 (1.0-4.8); Lymphocytes % (Auto) 17 % (10-50); Mean Corpuscular HGB Conc 30.4 g/dl (31.0-37.0); Mean Corpuscular Hemoglobin 21.1 pg (25.0-35.0); Mean Corpuscular Volume 69 fL (80-100); Monocytes # (Auto) 1.2 Thou/mm3 (0.0-0.8); Monocytes % (Auto) 7 % (0-12); Neutrophils # (Auto) 12.8 Thou/mm3 (1.8-7.7); Neutrophils % (Auto) 75 % (37-80); Nucleated Red Blood Cell # 0.02 Thou/mm3 (0.00-0.00); Nucleated Red Blood Cell % 0 /100 WBC (0); Platelet Count 307 Thou/mm3 (140-440); RDW Standard Deviation 50.8 fL (36.4-46.3); Red Blood Count 4.46 Miln/mm3 (4.00-5.20); White Blood Count 17.1 Thou/mm3 (3.6-11.0)
[2024-08-07 06:49] LABS: Alanine Aminotransferase 124 U/L (10-49); Albumin, Serum 3.6 gm/dL (3.4-4.8); Albumin/Globulin Ratio 1.4 (1.2-2.2); Alkaline Phosphatase 85 U/L (46-116); Anion Gap 6 (7-16); Aspartate Amino Transferase 43 U/L (0-34); BUN/Creatinine Ratio 14 Ratio (12-20); Bilirubin,Total 0.7 mg/dL (0.3-1.2); Blood Urea Nitrogen 11 mg/dL (9-23); Calcium 8.8 mg/dL (8.3-10.6); Calcium (Corrected) 9.1 mg/dL (8.5-10.1); Carbon Dioxide 26.2 mMol/L (20.0-31.0); Chloride 96 mMol/L (98-107); Creatinine (Component) 0.8 mg/dL (0.6-1.3); Estimated Creatinine Clearance 65.9 mL/min (>60); Globulin 2.6 gm/dL (2.3-3.5); Glucose 94 mg/dL (74-106); Magnesium 1.6 mg/dL (1.6-2.6); Osmolality,Calculated 256 (275-295); Phosphorous 2.6 mg/dL (2.4-5.1); Potassium 4.2 mMol/L (3.4-5.1); Sodium 128 mMol/L (136-145); Total Protein 6.2 gm/dL (5.7-8.2); eGFR > 60 See Note
[2024-08-07 07:59] VITALS: BP 146/78; PULSE 66; RESP 17; TEMP 36.2; O2SAT 95
[2024-08-07 09:44] VITALS: BP 146/78; PULSE 66
[2024-08-07] MEDS: LOSARTAN POTASSIUM 25 MG TABLET 50 MG PO (09:44)
[2024-08-07] MEDS: CHOLECALCIFEROL (Vitamin D3) 1,000 IU TABLET 5000 IU PO (09:44)
[2024-08-07] MEDS: LEVOFLOXACIN/D5W 500 MG IVPB 500 MG/100 ML BAG 100 MG IV (09:45)
[2024-08-07] MEDS: HYDROcodone/APAP 10/325 TAB PO ×2 (09:47→16:02)
--- NOTE | 2024-08-07 09:48 | ESPR_ITS ---
<Statement entered by Corazon Jacobo DO - 08/07/24 21:38> Senior attestation: Patient was examined and case was reviewed with team including attending physician. Note reviewed, I agree with most of its contents and agree with the patient's care. Patient appears to be clinically improving. HIDA scan revealed biliary dyskinesia, general surgeon Dr. Arcos following and does not advise cholecystectomy at this time, will follow patient in outpatient setting. FOBT results pending, may consider GI consult if positive, hemoglobin today 9.4 after 1 unit transfusion. Given iron deficient anemia findings, will treat with venofer x1 today. Corazon Jacobo DO PGY-3 Documentation for date of: 08/07/24 Subjective Subjective Interval history: Patient seen and examined at bedside. No acute events overnight. No longer endorses any abdominal pain, no insomnia, no shortness of breath, no fever. Patient is feeling better overall. HIDA scan had shown no obstruction of biliary tract however some biliary dyskinesia with ejection fraction of 14%. Dr. Arcos was consulted again and does not recommend undergoing cholecystectomy at this time as symptoms have resolved. Patient is status post 1 PRBC transfusion with improvement of hemoglobin to 9.4. Labs showed iron deficiency anemia with MCV 69. Will consider GI consult pending FOBT results. Patient has soft pulse--will hold metoprolol 25 daily and start losartan 50 mg daily for blood pressure control. Continue levofloxacin 500 mg daily for 7 days in setting of community-acquired pneumonia. Received dose of Venofer and Nephro-Mala. Anticipate discharge in 24 hours pending FOBT results and possible GI recommendations. Exam Vital Signs Temp Pulse Resp BP Pulse Ox O2 Del Method O2 Flow Rate 97.2 F 66 17 146/78 H 95 Room Air 5 08/07/24 07:59 08/07/24 09:44 08/07/24 07:59 08/07/24 09:44 08/07/24 07:59 08/07/24 07:59 08/05/24 20:46 Narrative Exam GENERAL: AAOX3 NEURO: WING COVERER grossly intact, moves extremities x4 HEENT: Dry mucosa. Eyes open, symmetrical, & clear CARDIO: No chest pain on palpation. Heart RRR, no obvious murmurs PULM: no crackles, on room air GI: Abdomen soft, nondistended, no tenderness, normal BS present URO/CARGO VESSEL STEWARDESS:: No further abnormalities noted. SKIN/MSK/EXT: Right wrist joint with limited range of motion Objective Labs 08/07/24 05:32 08/07/24 05:32 Labs: Laboratory Results - last 24 hr 08/04/24 08/06/24 08/06/24 21:15 11:20 21:07 WBC RBC Hgb 6.9 L* 9.5 L D Hct 22.9 L 31.3 L MCV MCH MCHC RDW Std Deviation Plt Count Neut % (Auto) Lymph % (Auto) [place] % (Auto) Eos % (Auto) Baso % (Auto) Neut # (Auto) Lymph # (Auto) [place] # (Auto) Eos # (Auto) Baso # (Auto) Immature Gran # (Auto) Absolute Nucleated RBC Immature Gran % Nucleated RBC % Sodium Potassium Chloride Carbon Dioxide Anion Gap BUN Creatinine Estim Creat Clear Calc eGFR BUN/Creatinine Ratio Glucose Calculated Osmolality Calcium Corrected Calcium Phosphorus Magnesium Total Bilirubin AST ALT Alkaline Phosphatase Total Protein Albumin Globulin Albumin/Globulin Ratio Blood Type A Positive Antibody Screen NEGATIVE Crossmatch See Detail Blood Bank Wristband ID Yes 08/07/24 05:32 WBC 17.1 H RBC 4.46 Hgb 9.4 L Hct 30.9 L MCV 69 L MCH 21.1 L MCHC 30.4 L RDW Std Deviation 50.8 H Plt Count 307 Neut % (Auto) 75 Lymph % (Auto) 17 [place] % (Auto) 7 Eos % (Auto) 1 Baso % (Auto) 0 Neut # (Auto) 12.8 H Lymph # (Auto) 2.9 [place] # (Auto) 1.2 H Eos # (Auto) 0.1 Baso # (Auto) 0.0 Immature Gran # (Auto) 0.09 H Absolute Nucleated RBC 0.02 H Immature Gran % 1 H Nucleated RBC % 0 Sodium 128 L Potassium 4.2 D Chloride 96 L Carbon Dioxide 26.2 Anion Gap 6 L BUN 11 Creatinine 0.8 Estim Creat Clear Calc 65.9 eGFR > 60 BUN/Creatinine Ratio 14 Glucose 94 Calculated Osmolality 256 L Calcium 8.8 Corrected Calcium 9.1 Phosphorus 2.6 Magnesium 1.6 Total Bilirubin 0.7 AST 43 H ALT 124 H Alkaline Phosphatase 85 Total Protein 6.2 Albumin 3.6 Globulin 2.6 Albumin/Globulin Ratio 1.4 Blood Type Antibody Screen Crossmatch Blood Bank Wristband ID ABG Interpretation ABG results: 08/04/24 08/05/24 21:15 00:26 ABG pH 7.41 ABG pCO2 35 ABG pO2 86 ABG HCO3 22 ABG O2 Saturation 97 ABG Base Excess -2 VBG pH 7.28 L VBG pCO2 31 L VBG pO2 34 VBG Base Excess -11 L Quality Measures Quality Measures none Assessment & Plan Assessment Current Active Medications: Generic Name Dose Route Start Last Admin Trade Name Freq PRN Reason Stop Dose Admin Acetaminophen 650 mg 08/05/24 03:57 Acetaminophen 325 Mg Tablet PO 09/04/24 03:56 Q6H PRN Pain 1-3 or Fever >101.5 Hydrocodone Bitart/Acetaminophen 1 tab 08/05/24 15:02 08/07/24 09:47 Hydrocodone/Apap 10/325 Tab PO 08/10/24 17:59 1 tab Q6HR PRN Administration Pain 7-10 Hydrocodone Bitart/Acetaminophen 1 tab 08/05/24 15:05 08/06/24 20:32 Hydrocodone/Apap 5/325 Tablet PO 08/10/24 03:56 1 tab Q4HR PRN Administration PAIN SCALE 4-6 Diphenhydramine HCl 25 mg 08/06/24 18:30 08/06/24 20:32 Diphenhydramine 25 Mg Capsule PO 09/05/24 20:59 25 mg HS PRN Administration insomnia Docusate Sodium 100 mg 08/05/24 17:04 Docusate Sod 100 Mg Capsule PO 09/04/24 17:03 QDAY PRN Constipation Protocol Duloxetine HCl 60 mg 08/05/24 21:00 08/06/24 20:33 Duloxetine Hcl 30 Mg Capsule PO 09/04/24 20:59 60 mg HS SONNY Administration Furosemide 20 mg 08/05/24 06:15 08/05/24 06:45 Furosemide Inj 10 Mg/Ml Vial 2 Ml IVP 09/04/24 06:14 20 mg BIDD SONNY Administration Hydroxyzine Pamoate 25 mg 08/05/24 18:44 Hydroxyzine Pamoate 25 Mg Capsule (Non-Formulary) PO Q6H PRN Anxiety Levofloxacin/Dextrose 500 mg in 100 mls @ 100 mls/hr 08/05/24 15:30 08/07/24 09:45 Levaquin Ivpb IV 08/12/24 15:29 100 mls/hr QDAY SONNY Administration Levothyroxine Sodium 50 mcg 08/05/24 21:00 08/06/24 20:32 Levothyroxine Sodium 25 Mcg Tablet PO 09/04/24 20:59 50 mcg QDAY@2100 SONNY Administration Lorazepam 1 mg 08/05/24 17:04 08/07/24 05:22 Lorazepam 0.5 Mg Tablet PO 08/10/24 17:03 1 mg BID PRN Administration Anxiety Losartan Potassium 50 mg 08/07/24 09:15 08/07/24 09:44 Losartan Potassium 25 Mg Tablet PO 09/06/24 09:14 50 mg QDAY SONNY Administration Ondansetron HCl 4 mg 08/05/24 03:57 Ondansetron Inj 2 Mg/Ml Inj 2 Ml IV 09/04/24 03:56 Q6H PRN NAUSEA OR VOMITING Protocol Pantoprazole Sodium 40 mg 08/05/24 21:00 08/06/24 20:33 Pantoprazole 40 Mg Tablet PO 09/04/24 20:59 40 mg QDAY@2100 SONNY Administration Vitamin D 5,000 iu 08/06/24 09:00 08/07/24 09:44 Cholecalciferol (Vitamin D3) 1,000 Iu Tablet PO 09/05/24 08:59 5,000 iu QDAY SONNY Administration Plan The patient is a 64-year-old female with a past medical history of hypertension, hypothyroidism, opiate dependence, chronic pain disorder and anxiety disorder presented to the ED on 08/04/2024 with a 4-day history of generalized abdominal pain, nausea and diarrhea.. Chest x-ray showed pulmonary vascular congestion and CT showed significant pneumonia in the right base #AHRF (resolved) 2/2 CAP vs Right pleural effusion Was Experiencing shortness of breath, desaturating below 90% O2, and started on 6 to 7 L nasal cannula. Does not use any home oxygen. Echo revealed EF 55-60%, moderate LA dilatation, moderate MR, pleural effusion present. Chest CTA positive for mild heart failure, bibasilar pneumonia moderate right sided pleural effusion. Negative for PE. - IV levofloxacin 250mg daily x7days (until 08/12/24) #Acute acalculous cholecystitis # Transaminitis-resolving Diffuse abdominal pain, nausea, no vomiting, no right upper quadrant pain, no Mike sign. AST 188, ALT 260 -Dr. Isrrael was consulted--does not recommend surgery -HIDA no obstruction in biliary tract, biliary dyskinesia EF 14% #Hyponatremia 2/2 fluid loss Sodium improved after receiving fluids in the ED. Today 129 -Daily CMP # Microcytic anemia Hemoglobin6.9, MCV 65. -Iron 19, ferritin 35 -s/p 1 prbc. Hb improved to 9.4 -Received Nephro-Mala and Venofer -FOBT pending -possibly GI consult -Follow-up outpatient #Hx hypertension #Hx hypothyroidism ?Metoprolol succinate 25 mg daily ?Levothyroxine 50 mcg daily #History of chronic pain #Status post multiple wrist surgeries #Opioid dependence The patient had right wrist injury about 5 years ago and has had multiple surgeries with revisions. Due to this she has had chronic pain for many years and is on pain medications at home-[place] 10 U-Tox positive for opiates on admission -start q6hr PRN Health maintenance: Dispo: FOBT pending DVT prophylaxis: Subcu heparin CODE STATUS: Full code Diet: Low fat, vegetarian The patient's management plan was discussed with my attending physician Dr. Davidson and senior Dr. Jacobo. Jazmin Pascal, PGY-1 Attending Provider Attestation/Addendum I have discussed and was present for the essential components of the history, physical examination, diagnosis, and treatment plan with the resident. I agree with the patient's care as documented by the resident and amended herein by me. Sahil Davidson DO. Patient seen and evaluated this AM. Vital signs stable, patient afebrile overnight. Significant labs including uptrending WBC to 17.1, posttransfusion CBC stable at 9.4, MCV 69, INR was 1.4 on 08/04, will order repeat, sodium 128 which is a slight downtrend from previous day, normal potassium, T. bili 0.7, AST 43, ALT 124, normal alk phos. Gallbladder ultrasound on 08/05 demonstrating abnormal ejection fraction of 14%, echo on 08/05 demonstrating dilated LV, estimated EF 55 to 60%. Patient's hemoglobin drop may be secondary to severe iron deficiency anemia, a dose of Venofer fear given today, patient does endorse she gets iron infusions in the outpatient setting. FOBT ordered, if positive will consider GI consult. Per general surgery, no surgical intervention at this time for gallbladder. For the patient's Pneumonia, will continue levofloxacin 500 mg daily for a total 7- day course. Likely DC in 1 to 2 days pending further testing and specialist recommendations Although this document has been carefully reviewed, there may still be some phonetic and other typographical errors. These errors are purely grammatical due to imperfections in the software program and should not be construed in any way to compromise the substance of the patient's medical care during this visit.
[2024-08-07 11:35] VITALS: BP 137/63; PULSE 66; RESP 18; TEMP 36.1; O2SAT 99
[2024-08-07 11:50] LABS: Cocci Serology, IgG Positive (Negative)
[2024-08-07 11:51] LABS: Cocid Sro, CF/ID (UCD) NO CHG* See Sep Rpt
[2024-08-07] MEDS: IRON SUCROSE CPLX INJ 20 MG/ML VIAL 5 ML 100 MG IVP (12:42)
[2024-08-07] MEDS: VIT B12/Vit C/FA (Nephrovite) TABLET 1 TAB PO (14:55)
[2024-08-07] MEDS: LACTOBACILLUS RHAMNOSUS 1 CAP PO (14:55)
[2024-08-07] MEDS: CYANOCOBALAMIN INJ 1,000 mCg/ML VIAL 1000 MCG IM (14:55)
[2024-08-07 16:00] VITALS: BP 128/65; PULSE 66; RESP 18; TEMP 36.1; O2SAT 96
[2024-08-07 20:00] VITALS: BP 148/77; PULSE 73; RESP 18; TEMP 36.3; O2SAT 93
[2024-08-07] MEDS: LEVOTHYROXINE SODIUM 25 MCG TABLET 50 MCG PO (20:22)
[2024-08-07] MEDS: PANTOPRAZOLE 40 MG TABLET PO (20:23)
[2024-08-07] MEDS: DULoxetine HCL 30 MG CAPSULE 60 MG PO (20:23)
[2024-08-07] MEDS: HYDROcodone/APAP 5/325 TABLET 1 TAB PO (21:48)
[2024-08-07] MEDS: DiphenhydrAMINE 25 MG CAPSULE PO (23:27)
[2024-08-08] VITALS (8 sets, daily range): BP systolic 133–159; BP diastolic 73–91; PULSE 62–84; RESP 17–98; TEMP 36.1–36.8; O2SAT 91–97; BMI 25.2
[2024-08-08 07:09] LABS: Alanine Aminotransferase 96 U/L (10-49); Albumin, Serum 3.5 gm/dL (3.4-4.8); Albumin/Globulin Ratio 1.3 (1.2-2.2); Alkaline Phosphatase 81 U/L (46-116); Anion Gap 8 (7-16); Aspartate Amino Transferase 52 U/L (0-34); BUN/Creatinine Ratio 13 Ratio (12-20); Bilirubin,Total 0.5 mg/dL (0.3-1.2); Blood Urea Nitrogen 10 mg/dL (9-23); Calcium 8.9 mg/dL (8.3-10.6); Calcium (Corrected) 9.3 mg/dL (8.5-10.1); Carbon Dioxide 24.5 mMol/L (20.0-31.0); Chloride 95 mMol/L (98-107); Creatinine (Component) 0.8 mg/dL (0.6-1.3); Estimated Creatinine Clearance 65.9 mL/min (>60); Globulin 2.6 gm/dL (2.3-3.5); Glucose 80 mg/dL (74-106); Osmolality,Calculated 253 (275-295); Phosphorous 3.5 mg/dL (2.4-5.1); Sodium 127 mMol/L (136-145); Total Protein 6.1 gm/dL (5.7-8.2); eGFR > 60 See Note
[2024-08-08 07:20] LABS: Basophils % (Auto) 0 % (0-2.5); Eosinophils # (Auto) 0.3 Thou/mm3 (0.0-0.5); Eosinophils % (Auto) 4 % (0-10); Hematocrit 33.7 % (36.0-46.0); Hemoglobin 9.9 g/dL (12.0-16.0); Immature Granulocytes % (Auto) 0 % (0-0); Immature Granulocytes Auto 0.03 Thou/mm3 (0.00-0.00); Lymphocytes # (Auto) 2.7 Thou/mm3 (1.0-4.8); Lymphocytes % (Auto) 36 % (10-50); Mean Corpuscular HGB Conc 29.4 g/dl (31.0-37.0); Mean Corpuscular Hemoglobin 21.4 pg (25.0-35.0); Mean Corpuscular Volume 73 fL (80-100); Monocytes # (Auto) 1.1 Thou/mm3 (0.0-0.8); Monocytes % (Auto) 15 % (0-12); Neutrophils # (Auto) 3.2 Thou/mm3 (1.8-7.7); Neutrophils % (Auto) 44 % (37-80); Nucleated Red Blood Cell % 0 /100 WBC (0); Platelet Count 323 Thou/mm3 (140-440); RDW Standard Deviation 56.8 fL (36.4-46.3); Red Blood Count 4.63 Miln/mm3 (4.00-5.20); White Blood Count 7.4 Thou/mm3 (3.6-11.0)
[2024-08-08] MEDS: LACTOBACILLUS RHAMNOSUS 1 CAP PO ×2 (08:58→20:47)
[2024-08-08] MEDS: LOSARTAN POTASSIUM 25 MG TABLET 50 MG PO (08:59)
[2024-08-08] MEDS: LEVOFLOXACIN/D5W 500 MG IVPB 500 MG/100 ML BAG 100 MG IV (08:59)
[2024-08-08] MEDS: VIT B12/Vit C/FA (Nephrovite) TABLET 1 TAB PO (08:59)
[2024-08-08] MEDS: CHOLECALCIFEROL (Vitamin D3) 1,000 IU TABLET 5000 IU PO (08:59)
[2024-08-08] MEDS: HYDROcodone/APAP 5/325 TABLET 1 TAB PO ×3 (09:10→20:48)
[2024-08-08] MEDS: Milk Of Magnesia Susp 30 ML UDC PO (09:24)
[2024-08-08] MEDS: LORazepam 0.5 MG TABLET 1 MG PO ×2 (09:24→23:24)
[2024-08-08] MEDS: IRON SUCROSE CPLX INJ 20 MG/ML VIAL 5 ML 200 MG IVP (09:58)
[2024-08-08] MEDS: GLYCERIN, ADULT 1 EA SUPP 1 EACH PR (10:01)
[2024-08-08] MEDS: MAGNESIUM CITRATE 300 ML BTL PO (12:29)
--- NOTE | 2024-08-08 17:12 | PD.RESPRO ---
Documentation for date of: 08/08/24 Subjective Subjective Interval history: Patient was seen and examined bedside. No acute overnight events. Stated that she is doing well and denies any other complaints. Vitals are stable. Physical examination remains unremarkable. Labs showed mild anemia Hb 9.9, sodium 127, potassium 5, BUN 10, creatinine 0.8, AST 52, ALT 96. HIDA scan showed ejection fraction of 14%. Dr. Arcos was consulted and he recommended no surgery for now and also recommended to follow-up within 2 weeks of discharge on outpatient basis in his office. Patient did not have any bowel movement since the hospital admission and also stated that she has constipation over years and occasionally she will not have a bowel movement for 2 weeks. Patient was given rectal suppository, milk of magnesium despite that patient did not have any bowel movement so gave a dose of 300 mL magnesium citrate and still did not have a bowel movement. So started on lactulose 20 g 3 times daily. Exam Vital Signs Temp Pulse Resp BP Pulse Ox O2 Del Method O2 Flow Rate 97.3 F 82 18 157/79 H 95 Room Air 5 08/08/24 08:00 08/08/24 10:10 08/08/24 10:10 08/08/24 08:59 08/08/24 08:00 08/08/24 08:00 08/05/24 20:46 Narrative Exam General: Awake. HEENT: Normocephalic, atraumatic, mucous membranes moist. Heart: Regular rate and rhythm, no murmurs. Lungs: Clear to auscultation with no wheezing or crackles. Abdomen: Soft, nondistended, nontender, positive bowel sounds. ?No guarding or rebound tenderness. Neurologic: Alert and oriented x3, no gross neurological deficit, and patient able to move all 4 extremities. Extremities: No edema. Skin: No rash or ecchymoses. Objective Labs 08/09/24 05:24 08/09/24 05:24 Labs: Laboratory Results - last 24 hr 08/08/24 04:10 WBC 7.4 D RBC 4.63 Hgb 9.9 L Hct 33.7 L MCV 73 L MCH 21.4 L MCHC 29.4 L RDW Std Deviation 56.8 H Plt Count 323 Neut % (Auto) 44 Lymph % (Auto) 36 [place] % (Auto) 15 H Eos % (Auto) 4 Baso % (Auto) 0 Neut # (Auto) 3.2 Lymph # (Auto) 2.7 [place] # (Auto) 1.1 H Eos # (Auto) 0.3 Baso # (Auto) 0.0 Immature Gran # (Auto) 0.03 H Absolute Nucleated RBC 0.00 Immature Gran % 0 Nucleated RBC % 0 Sodium 127 L Potassium 5.0 D Chloride 95 L Carbon Dioxide 24.5 Anion Gap 8 BUN 10 Creatinine 0.8 Estim Creat Clear Calc 65.9 eGFR > 60 BUN/Creatinine Ratio 13 Glucose 80 Calculated Osmolality 253 L Calcium 8.9 Corrected Calcium 9.3 Phosphorus 3.5 Total Bilirubin 0.5 AST 52 H ALT 96 H Alkaline Phosphatase 81 Total Protein 6.1 Albumin 3.5 Globulin 2.6 Albumin/Globulin Ratio 1.3 ABG Interpretation ABG results: 08/04/24 08/05/24 21:15 00:26 ABG pH 7.41 ABG pCO2 35 ABG pO2 86 ABG HCO3 22 ABG O2 Saturation 97 ABG Base Excess -2 VBG pH 7.28 L VBG pCO2 31 L VBG pO2 34 VBG Base Excess -11 L Quality Measures Quality Measures none Assessment & Plan Assessment Current Active Medications: Generic Name Dose Route Start Last Admin Trade Name Freq PRN Reason Stop Dose Admin Acetaminophen 650 mg 08/05/24 03:57 Acetaminophen 325 Mg Tablet PO 09/04/24 03:56 Q6H PRN Pain 1-3 or Fever >101.5 Hydrocodone Bitart/Acetaminophen 1 tab 08/05/24 15:02 08/07/24 16:02 Hydrocodone/Apap 10/325 Tab PO 08/10/24 17:59 1 tab Q6HR PRN Administration Pain 7-10 Hydrocodone Bitart/Acetaminophen 1 tab 08/05/24 15:05 08/08/24 14:34 Hydrocodone/Apap 5/325 Tablet PO 08/10/24 03:56 1 tab Q4HR PRN Administration PAIN SCALE 4-6 Diphenhydramine HCl 25 mg 08/06/24 18:30 08/07/24 23:27 Diphenhydramine 25 Mg Capsule PO 09/05/24 20:59 25 mg HS PRN Administration insomnia Docusate Sodium 100 mg 08/05/24 17:04 Docusate Sod 100 Mg Capsule PO 09/04/24 17:03 QDAY PRN Constipation Protocol Duloxetine HCl 60 mg 08/05/24 21:00 08/07/24 20:23 Duloxetine Hcl 30 Mg Capsule PO 09/04/24 20:59 60 mg HS SONNY Administration Furosemide 20 mg 08/05/24 06:15 08/05/24 06:45 Furosemide Inj 10 Mg/Ml Vial 2 Ml IVP 09/04/24 06:14 20 mg BIDD SONNY Administration Levofloxacin/Dextrose 500 mg in 100 mls @ 100 mls/hr 08/05/24 15:30 08/08/24 09:59 Levaquin Ivpb IV 08/12/24 15:29 Infused QDAY SONNY Infusion Iron Sucrose 200 mg 08/08/24 09:00 08/08/24 09:58 Iron Sucrose Cplx Inj 20 Mg/Ml Vial 5 Ml IVP 08/11/24 08:59 200 mg DAILY SONNY Administration Lactobacillus Rhamnosus 1 cap 08/07/24 14:30 08/08/24 08:58 Lactobacillus Rhamnosus 1 Cap PO 09/06/24 14:29 1 cap BID SONNY Administration Lactulose 20 gm 08/08/24 16:45 Lactulose Syrup 20 Gm/30 Ml Udc PO 09/07/24 16:44 TID SONNY Protocol Levothyroxine Sodium 50 mcg 08/05/24 21:00 08/07/24 20:22 Levothyroxine Sodium 25 Mcg Tablet PO 09/04/24 20:59 50 mcg QDAY@2100 SONNY Administration Lorazepam 1 mg 08/05/24 17:04 08/08/24 09:24 Lorazepam 0.5 Mg Tablet PO 08/10/24 17:03 1 mg BID PRN Administration Anxiety Losartan Potassium 50 mg 08/07/24 09:15 08/08/24 08:59 Losartan Potassium 25 Mg Tablet PO 09/06/24 09:14 50 mg QDAY SONNY Administration Ondansetron HCl 4 mg 08/05/24 03:57 Ondansetron Inj 2 Mg/Ml Inj 2 Ml IV 09/04/24 03:56 Q6H PRN NAUSEA OR VOMITING Protocol Pantoprazole Sodium 40 mg 08/05/24 21:00 08/07/24 20:23 Pantoprazole 40 Mg Tablet PO 09/04/24 20:59 40 mg QDAY@2100 SONNY Administration Patient Own Medication 25 ea 08/07/24 14:44 Patient's Own Med 1 Ea Ea PO Q6H PRN Anxiety Vitamin B Complex/Vit C/Folic Acid 1 tab 08/07/24 14:00 08/08/24 08:59 Vit B12/Vit C/Fa (Nephrovite) Tablet PO 09/06/24 13:59 1 tab QDAY SONNY Administration Vitamin D 5,000 iu 08/06/24 09:00 08/08/24 08:59 Cholecalciferol (Vitamin D3) 1,000 Iu Tablet PO 09/05/24 08:59 5,000 iu QDAY SONNY Administration Plan The patient is a 64-year-old female with a past medical history of hypertension, hypothyroidism, opiate dependence, chronic pain disorder and anxiety disorder presented to the ED on 08/04/2024 with a 4-day history of generalized abdominal pain, nausea and diarrhea.. Chest x-ray showed pulmonary vascular congestion and CT showed significant pneumonia in the right base #AHRF (resolved) 2/2 CAP vs Right pleural effusion Was Experiencing shortness of breath, desaturating below 90% O2, and started on 6 to 7 L nasal cannula. Does not use any home oxygen. Echo revealed EF 55-60%, moderate LA dilatation, moderate MR, pleural effusion present. Chest CTA positive for mild heart failure, bibasilar pneumonia moderate right sided pleural effusion. Negative for PE. - IV levofloxacin 250mg daily x7days (until 08/12/24) #Acute acalculous cholecystitis # Transaminitis-resolving Diffuse abdominal pain, nausea, no vomiting, no right upper quadrant pain, no Mike sign. AST 188, ALT 260 -Dr. Arcos was consulted--does not recommend surgery -HIDA no obstruction in biliary tract, biliary dyskinesia EF 14% # Chronic hyponatremia -On chart review, patient noted to have hyponatremia since 2018. -Sodium as of today is 127 -Patient does not have any symptoms of hyponatremia, will continue to monitor sodium levels. # Microcytic anemia Hemoglobin6.9, MCV 65. -Iron 19, ferritin 35 -s/p 1 prbc. Hb improved to 9.4 -Received Nephro-Mala and Venofer -FOBT pending as patient is not having any bowel movement. -possibly GI consult -Follow-up outpatient #Hx hypertension #Hx hypothyroidism ?Metoprolol succinate 25 mg daily ?Levothyroxine 50 mcg daily #History of chronic pain #Status post multiple wrist surgeries #Opioid dependence The patient had right wrist injury about 5 years ago and has had multiple surgeries with revisions. Due to this she has had chronic pain for many years and is on pain medications at home-[place] 10 U-Tox positive for opiates on admission -start q6hr PRN Health maintenance: Dispo: FOBT pending DVT prophylaxis: Subcu heparin CODE STATUS: Full code Diet: Low fat, vegetarian The patient's management plan was discussed with my attending physician Dr. Stuart Easton, PGY1 Attending Provider Attestation/Addendum I have discussed and was present for the essential components of the history, physical examination, diagnosis, and treatment plan with the resident. I agree with the patient's care as documented by the resident and amended herein by me. Sahil Davidson DO. Although this document has been carefully reviewed, there may still be some phonetic and other typographical errors. These errors are purely grammatical due to imperfections in the software program and should not be construed in any way to compromise the substance of the patient's medical care during this visit.
[2024-08-08] MEDS: LACTULOSE SYRUP 20 GM/30 ML UDC PO ×2 (17:19→21:32)
[2024-08-08] MEDS: NALOXEGOL OXALATE 25 MG TABLET (NON-FORMULARY) 12.5 MG PO (17:40)
[2024-08-08] MEDS: DULoxetine HCL 30 MG CAPSULE 60 MG PO (20:47)
[2024-08-08] MEDS: PANTOPRAZOLE 40 MG TABLET PO (20:47)
[2024-08-08] MEDS: LEVOTHYROXINE SODIUM 25 MCG TABLET 50 MCG PO (20:47)
[2024-08-08] MEDS: DiphenhydrAMINE 25 MG CAPSULE PO (23:25)
[2024-08-09] VITALS: BP 148/88; PULSE 88; RESP 18; TEMP 36.3; O2SAT 96
[2024-08-09 04:00] VITALS: BP 150/81; PULSE 79; RESP 16; TEMP 36.3; O2SAT 97
[2024-08-09 05:13] LABS: OBS Card Expiration Date 2026/09; OBS Card Lot # 23001; OBS Developer Expiration Date 2026/09; OBS Developer Lot # 23003; OBS Performed By andrm1; OBS QC OK? Yes; Occult Blood, Stool Negative (Negative)
[2024-08-09 05:47] LABS: Basophils % (Auto) 0 % (0-2.5); Eosinophils # (Auto) 0.4 Thou/mm3 (0.0-0.5); Eosinophils % (Auto) 6 % (0-10); Hematocrit 33.3 % (36.0-46.0); Immature Granulocytes % (Auto) 0 % (0-0); Immature Granulocytes Auto 0.03 Thou/mm3 (0.00-0.00); Lymphocytes # (Auto) 2.2 Thou/mm3 (1.0-4.8); Lymphocytes % (Auto) 32 % (10-50); Mean Corpuscular Hemoglobin 21.5 pg (25.0-35.0); Mean Corpuscular Volume 72 fL (80-100); Monocytes # (Auto) 1.1 Thou/mm3 (0.0-0.8); Monocytes % (Auto) 16 % (0-12); Neutrophils # (Auto) 3.2 Thou/mm3 (1.8-7.7); Neutrophils % (Auto) 45 % (37-80); Nucleated Red Blood Cell % 0 /100 WBC (0); Platelet Count 309 Thou/mm3 (140-440); RDW Standard Deviation 56.9 fL (36.4-46.3); Red Blood Count 4.65 Miln/mm3 (4.00-5.20)
[2024-08-09 06:13] LABS: Alanine Aminotransferase 77 U/L (10-49); Albumin, Serum 3.7 gm/dL (3.4-4.8); Albumin/Globulin Ratio 1.4 (1.2-2.2); Alkaline Phosphatase 84 U/L (46-116); Anion Gap 6 (7-16); Aspartate Amino Transferase 29 U/L (0-34); BUN/Creatinine Ratio 10 Ratio (12-20); Bilirubin,Total 0.5 mg/dL (0.3-1.2); Blood Urea Nitrogen 7 mg/dL (9-23); Calcium 9.1 mg/dL (8.3-10.6); Calcium (Corrected) 9.3 mg/dL (8.5-10.1); Chloride 99 mMol/L (98-107); Creatinine (Component) 0.7 mg/dL (0.6-1.3); Estimated Creatinine Clearance 73.6 mL/min (>60); Globulin 2.7 gm/dL (2.3-3.5); Glucose 92 mg/dL (74-106); Osmolality,Calculated 258 (275-295); Potassium 4.1 mMol/L (3.4-5.1); Sodium 130 mMol/L (136-145); Total Protein 6.4 gm/dL (5.7-8.2); eGFR > 60 See Note
[2024-08-09 08:00] VITALS: BP 142/84; PULSE 97; RESP 18; TEMP 36.1; O2SAT 98
[2024-08-09] MEDS: CHOLECALCIFEROL (Vitamin D3) 1,000 IU TABLET 5000 IU PO (09:56)
[2024-08-09] MEDS: LACTOBACILLUS RHAMNOSUS 1 CAP PO (09:57)
[2024-08-09] MEDS: LEVOFLOXACIN/D5W 500 MG IVPB 500 MG/100 ML BAG 100 MG IV (09:58)
[2024-08-09 09:59] VITALS: BP 142/84; PULSE 97
[2024-08-09] MEDS: VIT B12/Vit C/FA (Nephrovite) TABLET 1 TAB PO (09:59)
[2024-08-09] MEDS: LOSARTAN POTASSIUM 25 MG TABLET 50 MG PO (09:59)
[2024-08-09] MEDS: HYDROcodone/APAP 5/325 TABLET 1 TAB PO (10:09)
[2024-08-09] MEDS: IRON SUCROSE CPLX INJ 20 MG/ML VIAL 5 ML 200 MG IVP (10:18)
--- NOTE | 2024-08-09 10:33 | PC.SS ---
SS follow up note; Patient will possibly discharge today.
[2024-08-09 12:00] VITALS: BP 143/94; PULSE 72; RESP 18; TEMP 36.2; O2SAT 95
--- NOTE | 2024-08-09 12:34 | ESDS_ITS ---
Planned Discharge Date 08/09/24 DS: Providers Provider Date of admission: 08/05/24 03:57 Primary care physician: Fernando Roland Admitting Provider: Kendra Heath MD Attending Provider on Admission: Ihsan Davidson DO Consults: 08/05/24 08:43 Consult to General Surgery Routine Comment: Consulting Provider: Everette Govea Attending Provider on DC: Nabeel Easton MD Discharging Provider: Nabeel Easton MD DS: Diagnosis Problem List Completed Was Problem List Reviewed/Reconciled?: Yes Hospital Course Hospital Course Hospital course: The patient is a 64-year-old female with a past medical history of hypertension, hypothyroidism, opiate dependence, chronic pain disorder and anxiety disorder presenting to the ED on 08/04/2024 with a 4-day history of generalized abdominal pain, nausea and diarrhea and Acute acalculous cholecystitis. Labs done showed WBC 8.3 Hgb 7.6 with low MCV ESR 27 D-dimer 2470 NA 120 4K4.6 CL 92 bicarb 14.8 anion gap 17 BUN 14 CR 1.4 EGFR 43 glucose 108 AST 171 ALT 264 LDH 309 CRP 1.2 BNP 1223 procalcitonin 0.65. Normal TSH. UA positive for 1+ ketones and esterase, otherwise unremarkable and U-Tox was positive for opiates and marijuana. Chest x-ray showed pulmonary vascular congestion and CT showed significant pneumonia in the right base, Pleural effusion present.. Echo showed dilated LV. Normal LV size and function. Estimated EF 55-60%. Normal RV size and function. Moderate LA dilatation, Moderate MR, Mild aortic regurgitation, Trace TR. Chest/abdomen/pelvis CT showed Mild CHF. Significant pneumonia right base. Acute acalculous cholecystitis, recommend hepatobiliary sonography follow-up. Normal appendix. Moderate bilateral renal parenchymal scar formation, no hydronephrosis. Gallbladder ultrasound also showed acute acalculous cholecystitis. HIDA no obstruction in biliary tract, biliary dyskinesia EF 14%.Dr. Arcos was consulted--does not recommend surgery. A pack of PRBC transfusion was given in view of anemia. FOBT was done which was negative for blood and recommended to follow-up on outpatient basis for anemia workup. Patient is discharged to home with the following medications and recommendations -Follow-up with PCP within 1 week of discharge. If you do not have appointment, please follow-up with the [facility] with Dr. Easton. Call [phone] to make an appointment. -Follow up with Dr. Arcos within 2 weeks of discharge -Start ferrous sulfate p.o. daily, hydroxyzine 25 Mg twice daily as needed, zolpidem 5mg p.o. HS, -Stop hydrocodone acetaminophen, lorazepam, omeprazole. -Continue rest of the home medications. -Take medications as prescribed. -Return to ED if symptoms persist or return #AHRF (resolved) 2/2 CAP vs Right pleural effusion #Acute acalculous cholecystitis # Transaminitis, resolved # Chronic hyponatremia # Microcytic anemia #Hx hypertension #Hx hypothyroidism #History of chronic pain #Status post multiple wrist surgeries #Opioid dependence Patient plan of care was discussed with the attending physician, Dr. Beatris Easton, PGY1 Time Spent with Patient Time attestation: Total time spent providing and/or coordinating discharge services: Time spent: Greater than 30 minutes Exam Vital Signs Temp Pulse Resp BP Pulse Ox O2 Del Method O2 Flow Rate 97.1 F 72 18 143/94 H 95 Room Air 5 08/09/24 12:00 08/09/24 12:00 08/09/24 12:00 08/09/24 12:00 08/09/24 12:08/09/24 12:00 08/05/24 20:46 Narrative Exam General: Awake. HEENT: Normocephalic, atraumatic, mucous membranes moist. Heart: Regular rate and rhythm, no murmurs. Lungs: Clear to auscultation with no wheezing or crackles. Abdomen: Soft, nondistended, nontender, positive bowel sounds. ?No guarding or rebound tenderness. Neurologic: Alert and oriented x3, no gross neurological deficit, and patient able to move all 4 extremities. Extremities: No edema. Skin: No rash or ecchymoses. Discharge Plan Plan Patient Disposition: HOME (Self Care) Patient condition on transfer: Stable Care Plan Goals: -Follow-up with PCP within 1 week of discharge. If you do not have appointment, please follow-up with the [facility] with Dr. Easton. Call [phone] to make an appointment. -Follow up with Dr. Arcos within 2 weeks of discharge -Start ferrous sulfate p.o. daily, hydroxyzine 25 Mg twice daily as needed, zolpidem 5mg p.o. HS, -Stop hydrocodone acetaminophen, lorazepam, omeprazole. -Continue rest of the home medications. -Take medications as prescribed. -Return to ED if symptoms persist or return Prescriptions/Referrals Prescriptions/Med Rec: New ferrous sulfate 324 mg (65 mg iron) tablet,delayed release (DR/EC) 324 mg PO Q OTHER DAY 30 Days Qty: 15 1RF zolpidem 5 mg tablet 5 mg PO HS PRN (Reason: insomnia) 30 Days Qty: 30 0RF hydroxyzine pamoate 25 mg capsule 25 mg PO BID PRN (Reason: Anxiety ) 30 Days Qty: 10 0RF Lactobacillus acidophilus 10 billion cell capsule 10,000 mmu cells PO QDAY 30 Days Qty: 30 0RF Continued levothyroxine [Synthroid] 50 mcg Tablet 50 mcg PO QDAY Qty: 0 docusate sodium 100 mg capsule 1 cap PO QDAY PRN (Reason: Constipation) Patient Comments: TAKE ONE CAPSULE BY MOUTH ONCE DAILY NEEDED FOR CONSTIPATION metoprolol succinate 25 mg tablet extended release 24 hr 1 tab PO QDAY Patient Comments: TAKE ONE CAPSULE BY MOUTH EVERY DAY duloxetine 60 mg capsule,delayed release(DR/EC) 2 cap PO QDAY Patient Comments: TAKE ONE CAPSULE BY MOUTH EVERY DAY ondansetron HCl 4 mg tablet 4 mg PO Q8H PRN (Reason: Nausea) Patient Comments: TAKE ONE TABLET BY MOUTH EVERY 8 HOURS NEEDED FOR NAUSEA AND VOMITING irbesartan 75 mg tablet 75 mg PO QDAY cholecalciferol (vitamin D3) 125 mcg (5,000 unit) capsule 125 mcg PO QDAY Patient Comments: TAKE ONE CAPSULE BY MOUTH EVERY DAY VITAMIN Discontinued hydrocodone-acetaminophen 10-325 mg tablet 1 tab PO Q6H PRN (Reason: Pain) Patient Comments: TAKE ONE TABLET BY MOUTH FOUR TIMES DAILY NEEDED FOR PAIN ferrous sulfate [FeroSul] 325 mg (65 mg iron) tablet Patient Comments: TAKE ONE TABLET BY MOUTH EVERY OTHER DAY VITAMIN WITH ORANGE JUICE hydroxyzine pamoate 25 mg capsule 25 mg PO Q6H PRN (Reason: Anxiety) Patient Comments: TAKE ONE CAPSULE BY MOUTH FOUR TIMES DAILY NEEDED FOR SLEEP lorazepam 1 mg tablet 1 mg PO BID PRN (Reason: Anxiety) omeprazole 40 mg capsule,delayed release(DR/EC) 40 mg PO QDAY Referrals: Fernando Roland [Primary Care Provider] - Patient/Caregiver Discharge Instructions Meds to Beds: Yes Discharge Activity: as per physical therapy and resume usual activities Education Materials: Cholecystectomy, Anatomy of the Female Urinary Tract, Hematuria: Possible Causes, Urinary Tract Infections in Women, Understanding Urinary Tract ..., When to Use Antibiotics, ED Hematuria, ED Urinary Retention, Female, ED CYSTITIS Female Adult Print Language: Welsh Stand Alone Forms: Mary Beth Award Info., Patient Portal Info Letter Discharge Order Discharge Orders: Discharge (Routine); Ordered 08/09/24 Ordered By: Jorge So Quality Discharge Quality Measures VTE prophylaxis Attestestation Attestation I have discussed and was present for the essential components of the discharge history, physical examination, diagnosis, and discharge treatment plan with the resident. I agree with the patient's discharge care as documented by the resident and amended herein by me. Sahil Davidson DO. The patient understood all discharge instructions, all questions were answered satisfactorily. The patient was instructed to return to the Emergency Department is symptoms worsened or persisted. Patient was stable, afebrile, tolerating p.o. intake and had copious bowel movements on day of discharge. Patient instructed to follow-up with her primary care physician within 7 to 10 days of discharge. All questions answered. Although this document has been carefully reviewed, there may still be some phonetic and other typographical errors. These errors are purely grammatical due to imperfections in the software program and should not be construed in any way to compromise the substance of the patient's medical care during this visit.
== END 2024-08-09 13:50 | disposition home or self-care (01) | DRG 133 ==
LOC: SERX 08-05 03:11 → SERHOLD 08-05 04:14 → S3SX 08-05 09:56
PROVIDERS: Registered Nurse General Practice; Student in an Organized Health Care Education/Training Program; Admitting Provider Student in an Organized Health Care Education/Training Program; Emergency Provider Emergency Medicine; PCP Family Medicine; Visit Provider Student in an Organized Health Care Education/Training Program
DX: J96.01 Acute respiratory failure with hypoxia (principal); J18.9 Pneumonia, unspecified organism; I11.0 Hypertensive heart disease with heart failure; E87.1 Hypo-osmolality and hyponatremia; K81.0 Acute cholecystitis; I50.9 Heart failure, unspecified; E03.9 Hypothyroidism, unspecified; N17.9 Acute kidney failure, unspecified; F11.20 Opioid dependence, uncomplicated; F41.9 Anxiety disorder, unspecified; G89.29 Other chronic pain; K52.9 Noninfective gastroenteritis and colitis, unspecified; E87.20 Acidosis, unspecified; R68.0 Hypothermia, not associated with low environmental temperature; D50.9 Iron deficiency anemia, unspecified; E86.1 Hypovolemia; I08.0 Rheumatic disorders of both mitral and aortic valves; G47.9 Sleep disorder, unspecified; Z79.890 Hormone replacement therapy; Z79.899 Other long term (current) drug therapy; Z88.1 Allergy status to other antibiotic agents; Z88.0 Allergy status to penicillin; Z91.048 Other nonmedicinal substance allergy status
CPT/HCPCS: 36415; 36600; 71045; 71260; 71275; 74177; 76705; 78227; 80053; 80061; 80307; 81001; 82270; 82436; 82728; 82803; 83540; 83550; 83605; 83615; 83735; 83880; 83935; 84100; 84133; 84145; 84300; 84443; 84484; 85014; 85018; 85025; 85379; 85610; 85652; 85730; 86140; 86331; 86635; 86850; 86900; 86901; 86923; 87040; 87400; 87634; 87811; 93005; 93306; 94640; 96361; 96365; 96367; 96375; 96376; 99285; A4649; A9270; A9537; J0456; J0696; J1643; J1756; J1940; J1956; J2270; J2405; J2805; J2919; J3420; J7040; J7050; P9016; Q9967; J1644

== ENCOUNTER 2024-08-22 13:25 | Outpatient (AMB) | payer MEDICAID, SELFPAY ==
--- NOTE | 2024-08-22 13:42 | PD.RESCLINIC ---
Vital Signs 08/22/24 13:43 Height 1.6 m Height Method Stated Weight 65.487 kg Weight Measurement Method Standing Scale BMI 25.5 BP 120/73 Blood Pressure Source Automatic Cuff Blood Pressure Location Left Upper Arm Position Sitting Respiration 18 Pulse 50 L Pulse Source Monitor Temp 97.3 F Temp Source Oral Pulse Oximetry (%) 92 L Oxygen Delivery Method Room Air Allergies/Meds Allergies & Medications Allergies adhesive Allergy (Severe, Verified 08/22/24 13:44) HIVES doxycycline Allergy (Severe, Verified 08/22/24 13:44) HIVES Penicillins Allergy (Severe, Verified 08/22/24 13:44) Hives Medication Reconciliation levothyroxine 50 mcg tablet (Synthroid) 50 mcg PO QDAY THYROID #0 tabs 12/02/14 [History Confirmed 08/22/24] docusate sodium 100 mg capsule 1 cap PO QDAY PRN Constipation 04/03/22 [History Confirmed 08/22/24] duloxetine 60 mg capsule,delayed release 2 cap PO QDAY 04/03/22 [History Confirmed 08/22/24] metoprolol succinate 25 mg tablet,extended release 24 hr 1 tab PO QDAY 04/03/22 [History Confirmed 08/22/24] cholecalciferol (vitamin D3) 125 mcg (5,000 unit) capsule 125 mcg PO QDAY 08/05/24 [History Confirmed 08/22/24] irbesartan 75 mg tablet 75 mg PO QDAY 08/05/24 [History Confirmed 08/22/24] ondansetron HCl 4 mg tablet 4 mg PO Q8H PRN Nausea 08/05/24 [History Confirmed 08/22/24] Lactobacillus acidophilus 10 billion cell capsule 10,000 mmu cells PO QDAY 1 month #30 caps 08/09/24 [Rx Confirmed 08/22/24] ferrous sulfate 324 mg (65 mg iron) tablet,delayed release 324 mg PO Q OTHER DAY 1 month #15 tabs 08/09/24 [Rx Confirmed 08/22/24] hydroxyzine pamoate 25 mg capsule 25 mg PO BID PRN Anxiety 1 month #10 caps 08/09/24 [Rx Confirmed 08/22/24] zolpidem 5 mg tablet 5 mg PO HS PRN insomnia 1 month #30 tabs 08/09/24 [Rx Confirmed 08/22/24] MA Intake Visit Data Collection New Patient or Established: Established Patient (seen at [facility] within 3 years) Pain Present Currently: Yes Pain Scale Used: Mehta-Bassett/Numerical Mine Superintendent Required: No PCP or OBGYN visit in last 3 months: No Hx Now: No Do You Feel Safe at Home: Yes Authorities Contacted: N/A Smoking Status Smoking Status: Never smoker Immunization / Flu Flu Vaccine in the Last 12 Months: No Flu Vaccine Exclusion Criteria: No Exclusion Criteria Past Medical History Past Medical History NEUROLOGIC: Negative Neurological Disorders CARDIAC: Positive Hypertension; Negative Cardiac Disorders, Cardiac Arrhythmia, Atrial Fibrillation, Angina, Atherosclerotic Heart Disease, Aneurysm or Congestive Heart Failure RESPIRATORY: Negative Chronic Obstructive Pulmonary Disease (COPD) or Asthma GASTROINTESTINAL: Positive Gastrointestinal Disorders and Gastroesophageal Reflux Disease; Negative Celiac Disease or Kaiser's Esophagus GENITOURINARY: Negative Genitourinary Disorders or Renal Disease REPRODUCTIVE: Negative Pelvic Inflammatory Disease MUSCULOSKELETAL: Positive Arthritis and Fibromyalgia ENT: Positive Cataracts; Negative Glaucoma, Blind, Retinal Detachment, Macular Degeneration, Ear Infection, Deafness or Eye Prosthesis ENDOCRINE: Negative Endocrine Disorders, Diabetes Mellitus Type 1, Diabetes Mellitus Type 2, Leonides's Disease or Adrenal Disease HEMATOLOGIC: Negative Blood Disorders or Sickle Cell Disease PSYCHO/SOCIAL: Positive Depression and Anxiety OTHER HISTORY: Positive MRSA; Negative Autoimmune Disease, Shingles, Anesthesia Reactions, Organ Transplant, Vancomycin-Resistant Enterococci, Clostridium Difficile or Cancer Family History FAMILY HISTORY: Positive Family Cancer (sister,brother) and Family Surgery; Negative Family Respiratory Disorders, Family Cardiac Disorders, Family Gastrointestinal Problems or Family Anesthesia Reaction Surgical History SURGICAL: Negative Organ Transplant Social History SMOKING STATUS: Smoking status: Never smoker ALCOHOL: Alcohol Intake: Current ALCOHOL FREQUENCY: Alcohol Intake Frequency: 3 or More Drinks per Day HOUSING: Housing: LIVES WITH: Lives With: Family Patient Kate Munoz Social History Living Situation History Housing: Tobacco History Smoking Status: Never smoker Alcohol History Alcohol Intake: Current Alcohol Intake Frequency: 3 or More Drinks per Day Domestic Abuse History Do You Feel Safe at Home: Yes Review of Systems Report any current symptoms Only answer those that you have currently: Past Medical History Past Medical History Have you ever been diagnosed with any of the following: Cardiology Problems Cardiac Arrhythmia: No Atrial Fibrillation: No Angina: No Atherosclerotic Heart Disease: No Aneurysm: No Congestive Heart Failure: No Hypertension: Yes Respiratory Problems Chronic Obstructive Pulmonary Disease (COPD): No Asthma: No Stomache/Intestinal Problems Celiac Disease: No Kaiser's Esophagus: No Gastroesophageal Reflux Disease: Yes Genital/Urinary Problems Renal Disease: No Reproductive Problems Pelvic Inflammatory Disease: No Musculoskeletal Problems Arthritis: Yes Fibromyalgia: Yes Head,Eye,Nose,Throat Problems Cataracts: Yes Glaucoma: No Blind: No Retinal Detachment: No Macular Degeneration: No Chronic Ear Infections: No Deafness: No Eye Prosthesis: No Endocrine Problems Diabetes Mellitus Type 1: No Diabetes Mellitus Type 2: No Leonides's Disease: No Adrenal Disease: No Blood Problems Sickle Cell Disease: No Psychologic Problems Depression: Yes Anxiety: Yes Other Problems Autoimmune Disease: No Shingles: No Anesthesia Reactions: No Organ Transplant: No MRSA: Yes Vancomycin-Resistant Enterococci: No Clostridium Difficile: No Cancer: No History of Present Illness HPI Narrative Patient is a 64-year-old female with a past medical history of hypertension, hypothyroidism, opiate dependence, chronic pain disorder and anxiety disorder whpo was recently hospitalized at [facility] in Jul 2024 for AHRF 2/2 RT pleural effusion. Labs at that [facility] showed WBC 8.3 Hgb 7.6 with low MCV , JUAN ANTONIO : CR 1.4 EGFR 43 and BNP 1223. Chest x-ray showed pulmonary vascular congestion and CT showed significant pneumonia in the right base, and RT pleural effusion present.. Echo showed dilated LV, but no wall motion abnormalities, LVEF 55-60%. Chest/abdomen/pelvis CT showed Mild CHF. Significant pneumonia right base and possible acute acalculous cholecystitis. Gallbladder ultrasound also showed acute acalculous cholecystitis. Followed up with [facility] which was negative. Patient received 1 unit of PRBC transfusion in view of anemia. FOBT was negative for blood Currently on: 325mg qOther Day ferrous sulfate hydroxyzine 25 Mg twice daily as needed zolpidem 5mg p.o. HS, 08/22/2024: Patient presented for a clinic visit to establish post discharge primary care. She has symptomatically improved significantly. She complains of mild congestion, and flulike symptoms for the last 2 days, she requests a decongestant for the same. Patient also has left knee swelling and pain, and inability to bear weight. Patient was advised to bring her old records from her previous place of primary care in order to evaluate need for further imaging and testing. Ordered 10 capsules of celecoxib and topical diclofenac gel for knee pain, also ordered ciprofloxacin eardrops for right-sided earache and possible otitis externa.Follow-up visit scheduled for 4 weeks from now Review of Systems Review of Systems Narrative Review of Systems: GENERAL: Denies fevers/chills or diaphoresis. HEENT: Denies headache. Mild nasal discharge. RT earache NEURO: Denies unusual weakness or difficulty speaking. CARDIO: Denies chest pain or palpitations. PULM: Denies SOB, coughing, or wheezing. GI: Denies abdominal pain, N/V/C/D. Reports having BMs URO: Denies burning/itching/pain/urinary changes. MEDICAL STAFFING COORDINATOR: Denies menstrual changes, hot flashes. MSK/EXT/SKIN: LT knee swelling and pain, no skin changes PSYCH: Cooperative, pleasant mood & affect. The rest of the review of systems is otherwise negative. Objective/Exam Objective Laboratory: Constitutional Alert, oriented x3 and comfortable HEENT Vision grossly intact. Patent nares. Trachea midline. RT ear discharge, clear, not foul smelling Respiratory Chest normal on inspection and clear to auscultation bilaterally. Cardiovascular S1 and S2 audible, RRR. No murmurs or carotid bruit. No gross JVD. Abdominal Soft and non tender to palpation in all quadrants. BS + Genitourinary No bladder tenderness, no flank pain. Normal to palpation. Musculoskeletal Extremities tone within normal limits. No LE edema. LT knee swelling and pain Neurological CN II - XII grossly intact. Extremity motor and sensation grossly intact. Skin Warm, dry and intact. No apparent lesions. Psychiatric Patient has a good affect, is cooperative. Assessment & Plan Diagnosis / Problem List (1) Osteoarthritis of left knee: Status: Acute Assessment & Plan: She had a recent knee XR Also has history of chronic pain Plan: Ordered old records to re-evaluate need for further imaging Celecoxibb x 10 capsules Diclofenac gel TOP Lidocaine patch (2) Otitis externa of right ear: Status: Acute Assessment & Plan: New Rt ear pain, in the setting of congestion Plan: Ciprofloxacin ear drops Mucinex PRN (3) Insomnia secondary to anxiety: Status: Acute Assessment & Plan: Improved since discharged on Ambien 5mg from hospital, sleep is much improved Pt feels more energetic during the day Plan: Continue Zolipdem 5mg HS Counseled on risk of amnesia, will take precautions Plan Follow up scheduled in 4 weeks Advised to call clinic for phone appt if needed Office Procedures [facility] Level of Care Nursing/Assessment Patient Status: Established Patient Nursing Assessment/Reassessment: Medication Reconciliation, Update PMH in EMR and Vital Signs Coordination of Care: Complex Care and Chronic Disease 1-5, Consent,records obtained, informed consent, Education Simp Pt/Fam, Lab and Imaging orders and Staff clarify orders Established Patient Charge Established Patient Point Assignment: 100 Established Patient Point Charge: EP Level 3 (80-115)
[2024-08-22 13:43] VITALS: BP 120/73; PULSE 50; RESP 18; TEMP 36.3; O2SAT 92; BMI 25.5
== END 2024-08-22 14:47 | disposition home or self-care (01) ==
LOC: HODAHC 13:25
PROVIDERS: PCP Student in an Organized Health Care Education/Training Program; Referring Provider Student in an Organized Health Care Education/Training Program; Supervising Provider Internal Medicine; Visit Provider Student in an Organized Health Care Education/Training Program
DX: M17.12 Unilateral primary osteoarthritis, left knee (principal); H60.91 Unspecified otitis externa, right ear; F41.9 Anxiety disorder, unspecified; F51.05 Insomnia due to other mental disorder
CPT/HCPCS: 99213; G0463

== ENCOUNTER 2024-09-02 18:12 | Emergency (ER) | payer MEDICAID, SELFPAY ==
[2024-09-02 18:14] VITALS: BP 170/89; PULSE 75; RESP 19; TEMP 36.5; O2SAT 95
--- NOTE | 2024-09-02 18:42 | XR_ITS ---
Examination: CT brain head without contrast. 2-D sagittal coronal reconstructions Date and time of exam:September 02, 20248 hrs. Indications: Patient fell today with injury to the head, head pain dizziness CTDI: vol (mGy):48.6 DLP: (mGycm):993 Technique: Multiple CT axial sections of the brain have been obtained, 5 mm slice thickness. Contrast has not been administered. 2-D sagittal, coronal reconstructions have been obtained Low dose protocols were performed. One or more of the following dose reduction techniques were used; automated exposure control, adjustment of the mA and/or KV according to patient size, use of iterative reconstruction technique. Findings: No significant ventricular enlargement. Intra-axial or extra-axial hemorrhage density is not seen. No mass effect or midline shift Basal cisterns are not remarkable. Fourth ventricle is midline. Cranial vault intact. Soft tissue swelling left forehead scalp Impression: Negative for acute hemorrhage, mass effect or midline shift
--- NOTE | 2024-09-02 18:42 | XR_ITS ---
Examination: CT cervical spine without contrast 2-D sagittal reconstructions 2-D coronal reconstructions 3-D reconstructions. Exam date and time:September 02, [id number] hrs. Indications: Patient fell 6 feet today with injury to the neck, neck pain CTDI:vol (mGy) 13.36 DLP: (mGycm) 330 Technique: Multiple 2 mm axial sections of the cervical spine have been obtained. The coronal and sagittal reconstructions have been obtained. 3-D reconstructions have been obtained. Low dose protocols were performed. One or more of the following dose reduction techniques were used; automated exposure control, adjustment of the mA and/or KV according to patient size, use of iterative reconstruction technique. Findings: Acute comminuted fractures bases of the odontoid. The odontoid tip is displaced posteriorly 3 mm relative to the body of C2 No cervical vertebral body compression fracture There also is a fracture of the anterior ring of C1 with 5 mm separation at the fracture site, axial image 45 Also a nondisplaced fracture of the right lamina C1 side axial image 51 Impression: Acute fracture base of the odontoid, the odontoid tip displaced posteriorly 3 mm relative to the body of C2 Fracture anterior ring of C1 with 5 mm separation at the fracture site Nondisplaced fracture right lamina C1
--- NOTE | 2024-09-02 18:48 | XR_ITS ---
Examination: CT chest with intravenous contrast CT abdomen with intravenous contrast CT pelvis with intravenous contrast 2-D coronal and sagittal reconstructions Time of exam: September 02, 2024 at 2038 hrs. Indications: Patient fell 6 feet today with injury to the chest and abdomen, chest pain abdomen pain CTDI: vol (mGy) : 9.56 DLP: (mGycm): 781 Technique: Multiple axial images of the chest, abdomen and pelvis with intravenous contrast, 3.0 mm slice thickness. Images obtained post intravenous injection Isovue 370 60 cc. 2-D sagittal and coronal reconstructions. Low dose protocols were performed. One or more of the following dose reduction techniques were used; automated exposure control, adjustment of the mA and/or KV according to patient size, use of iterative reconstruction technique. Findings: Thoracic aorta pulmonary arteries appear intact No hemopericardium No pneumothorax pulmonary contusion or hemothorax The manubrium body the sternum intact No thoracic vertebral body compression fracture Please see the CT cervical spine report Acute fracture right 10th rib laterally without displacement Acute fracture left fifth rib anteriorly without displacement No liver splenic or renal laceration No gallstones No pancreatic mass Abdominal aorta intact, no free blood in the abdomen 12 mm fat-containing umbilical hernia Distended urinary bladder which is intact Lumbar vertebral bodies hips bones of the pelvis intact Impression: Please see the CT cervical spine report Thoracic aorta pulmonary arteries intact No hemopericardium, pneumothorax, pulmonary contusion or hemothorax Acute fracture right 10th rib laterally Acute fracture left fifth rib anteriorly No abdominal parenchymal laceration Abdominal aorta intact No free blood in the abdomen and pelvis
[2024-09-02 19:28] VITALS: PULSE 90; RESP 20; O2SAT 98; BMI 24.4
[2024-09-02] MEDS: fentaNYL CIT INJ 50 mCg/ML AMP 2ML 100 MCG IVP (19:40)
[2024-09-02] MEDS: DIPHTH,PERTUSS(ACELL),TET VAC 0.5 ML VIAL IMi (19:41)
--- NOTE | 2024-09-02 20:36 | PD.EDADULT ---
ED General RME/HPI General Chief complaint: Fall Stated complaint: FALL Time Seen by Provider: 09/02/24 18:42 Arrival date/time: 09/02/24 18:12 CC: Neck pain headache HPI onset after the patient fell approximately 6 feet from stepping out of her trailer falling down the steps. EMS reports stable vital signs however the patient continues to complain acute on chronic neck pain. Patient denies any numbness or tingling in her hands or feet, patient admits to drinking alcohol prior to the fall. Patient denies any loss of consciousness or altered level of consciousness and no vomiting. At the time of initial exam. Patient was holding up her head with her hand on her chin secondary to neck pain rigid collar was applied immediately. Related Data Home Medications ?Medication ?Instructions ?Recorded ?Confirmed levothyroxine 50 mcg tablet 50 mcg PO QDAY THYROID #0 tabs 12/02/14 08/22/24 (Synthroid) docusate sodium 100 mg capsule 1 cap PO QDAY PRN Constipation 04/03/22 08/22/24 duloxetine 60 mg capsule,delayed 2 cap PO QDAY 04/03/22 08/22/24 release metoprolol succinate 25 mg 1 tab PO QDAY 04/03/22 08/22/24 tablet,extended release 24 hr cholecalciferol (vitamin D3) 125 125 mcg PO QDAY 08/05/24 08/22/24 mcg (5,000 unit) capsule irbesartan 75 mg tablet 75 mg PO QDAY 08/05/24 08/22/24 ondansetron HCl 4 mg tablet 4 mg PO Q8H PRN Nausea 08/05/24 08/22/24 Previous Rx's ?Medication ?Instructions ?Recorded Lactobacillus acidophilus 10 10,000 mmu cells PO QDAY 1 month 08/09/24 billion cell capsule #30 caps ferrous sulfate 324 mg (65 mg 324 mg PO Q OTHER DAY 1 month #15 08/09/24 iron) tablet,delayed release tabs hydroxyzine pamoate 25 mg capsule 25 mg PO BID PRN Anxiety 1 month 08/09/24 #10 caps zolpidem 5 mg tablet 5 mg PO HS PRN insomnia 1 month 08/09/24 #30 tabs celecoxib 100 mg capsule 100 mg PO BID PRN pain #20 caps 08/22/24 diclofenac sodium 3 % topical gel 1 applic topical BID PRN pain #100 08/22/24 grams guaifenesin 600 mg tablet, 600 mg PO BID PRN congestion #20 08/22/24 extended release 12 hr (Mucinex) tabs lidocaine 4 % topical patch 1 patch topical QDAY PRN pain #30 08/22/24 (AsperFlex (lidocaine)) ea Allergies Allergy/AdvReac Type Severity Reaction Status Date / Time adhesive Allergy Severe HIVES Verified 08/22/24 13:44 doxycycline Allergy Severe HIVES Verified 08/22/24 13:44 Penicillins Allergy Severe Hives Verified 08/22/24 13:44 Review of Systems Review of Systems Narrative Review of Systems: GEN: No fever, no chills, no weight loss EYES: No discharge, no visual changes, no pain HEENT: No ear pain, no congestion, no sore throat, + neck pain PULM: No shortness of breath, no cough, no congestion CV: No chest pain, no dyspnea on exertion, no palpitations GI: No nausea, no vomiting, no diarrhea, no pain, no constipation : No frequency, no urgency, no dysuria MUSC/SKEL: No joint pain, no back pain SKIN: No rash PSYCH: No hallucinations, no depression HEME/LYMPH: No easy bleeding or bruising tendencies NEURO: No weakness, + headache Past Medical History Past Medical History NEUROLOGIC: Negative Neurological Disorders CARDIAC: Positive Cardiac Disorders (CHF) and Hypertension; Negative Cardiac Arrhythmia, Atrial Fibrillation, Angina, Atherosclerotic Heart Disease, Aneurysm or Congestive Heart Failure RESPIRATORY: Negative Chronic Obstructive Pulmonary Disease (COPD) or Asthma GASTROINTESTINAL: Positive Gastrointestinal Disorders and Gastroesophageal Reflux Disease; Negative Celiac Disease or Kaiser's Esophagus GENITOURINARY: Negative Genitourinary Disorders or Renal Disease REPRODUCTIVE: Negative Pelvic Inflammatory Disease MUSCULOSKELETAL: Positive Musculoskeletal Disorders, Arthritis and Fibromyalgia ENT: Positive Cataracts; Negative Glaucoma, Blind, Retinal Detachment, Macular Degeneration, Ear Infection, Deafness or Eye Prosthesis ENDOCRINE: Negative Endocrine Disorders, Diabetes Mellitus Type 1, Diabetes Mellitus Type 2, [place]'s Disease or Adrenal Disease HEMATOLOGIC: Negative Blood Disorders or Sickle Cell Disease PSYCHO/SOCIAL: Positive Depression and Anxiety OTHER HISTORY: Positive MRSA; Negative Autoimmune Disease, Shingles, Anesthesia Reactions, Organ Transplant, Vancomycin-Resistant Enterococci, Clostridium Difficile or Cancer Family History FAMILY HISTORY: Positive Family Cancer (sister,brother) and Family Surgery; Negative Family Respiratory Disorders, Family Cardiac Disorders, Family Gastrointestinal Problems or Family Anesthesia Reaction Surgical History SURGICAL: Negative Endocrine Surgery, Ear Surgery, Abdominal Surgery, Nephrectomy, Joint Replacement, Neurologic Surgery, Mastectomy or Organ Transplant Social History SMOKING STATUS: Never smoker ED Exam Narrative Physical exam: [General: In moderate discomfort but not in any acute distress Head left forehead hematoma with scalp abrasion no full-thickness laceration and no other hematomas or depressions appreciated with palpation. HEENT: Eyes: Pupils are PERRLA EOMs are intact no trapping, mouth pink moist membranes uvula is midline swallow symmetrical phonation is normal nose no rhinorrhea. No raccoon's eyes or Martinez sign. All other subsystems of HEENT are within acceptable limits Neck is supple no edema or erythema tenderness to palpation of the cervical paraspinal regions no spinous process tenderness. Chest equal chest rise nontender to palpation Respiratory: Clear to auscultation no wheezes crackles or rubs CV: Rate rhythm is regular no murmurs rubs or clicks Abdomen is soft nontender no masses positive bowel sounds all 4 quadrants Back: No CVA tenderness no spinous process tenderness from cervical spine thoracic and lumbar spine Skin: Intact no petechiae rash induration ulceration or crepitus Extremities: Moving all extremity against resistance cap refill less than 2 seconds neurosensory intact Neuro: Awake alert oriented x3 Glascow coma 15 no focal deficits] Course Quality Measures none Orders Category Date Time Status CT Screening NOW Care 09/02/24 18:48 Completed Saline [Insert IV] NOW Care 09/02/24 18:[address] cervical spine wo con Stat Exams 09/02/24 18:[address] chest abdomen pelvis w Stat Exams 09/02/24 18:[address] head/brain wo con Stat Exams 09/02/24 18:42 Completed Alcohol, Blood Medical Stat Lab 09/02/24 19:53 Completed CBC Stat Lab 09/02/24 19:53 Completed CMP [Comprehensive Metabolic Panel] Stat Lab 09/02/24 19:53 Completed PT [Prothrombin Time with INR] Stat Lab 09/02/24 19:53 Completed PTT [Partial Thromboplastin Time] Stat Lab 09/02/24 19:53 Completed Morphine Inj Med 09/02/24 21:32 Discontinued 4 mg IVP Q1H PRN Morphine Inj Med 09/02/24 21:09 Discontinued 4 mg IVP X1 ONE Ondansetron Inj [Zofran Inj] Med 09/02/24 21:09 Discontinued 4 mg IV X1 ONE Sodium Chloride 0.9% 1000 ml [Ns] 1,000 ml Med 09/02/24 21:24 Discontinued IV 100 mls/hr Tet,Diphth,Pertuss(Acell)-Tdap [Boostrix Vacc] Med 09/02/24 19:28 Discontinued 0.5 ml IMI .ONCE ONE fentaNYL INJ [Sublimaze Inj] Med 09/02/24 18:48 Discontinued 100 mcg IVP X1 ONE Vital Signs Vital signs: Vital Signs Temperature 97.7 F 09/02/24 18:14 Pulse Rate 75 09/02/24 18:14 Respiratory Rate 19 09/02/24 18:14 Blood Pressure 170/89 H 09/02/24 18:14 Pulse Oximetry (%) 95 09/02/24 18:14 Oxygen Delivery Method Room Air 09/02/24 18:14 [facility] Patient data External records reviewed:: [facility] previous records and EMS form Clinical information provided by:: patient and EMS Social determinants that could affect healthcare access:: none Patient has the following chronic illnesses:: Anemia hypothyroidism hypertension How is presenting disease/condition affected by chronic disease/condition?: uneffected by Evaluation data The following diagnostics were reviewed and interpreted by me:: lab results and radiology exam(s) Lab and/or radiology exams considered but not ordered:: CMP shows sodium 128 potassium of 4.2 chloride of 95 CO2 of 24.1 BUN of 7 creatinine 0.7 glucose of 95. EtOH 52.3 CT of cervical spine shows acute fracture base of the odontoid with odontoid tip displaced posteriorly 3 mm relative the body of the C2 fracture of the anterior ring of C1 with 5 mm separation at the fracture site along with a nondisplaced fracture of the right luminous C1. Head CT is negative for any acute findings interpreted by me read by radiology. Interpretation Summary: C1-2 fracture Medications Medications considered but not ordered:: None Medication administrations:: Medication Administration History Discontinued Medications Diphtheria/Tetanus/Acell Pertussis (Diphth,Pertuss(Acell),Tet Vac 0.5 Ml Vial) 0.5 ml IMi .ONCE ONE Stop: 09/02/24 19:29 Last Admin: 09/02/24 19:41 Dose: 0.5 ml Documented By: TC Fentanyl Citrate (Fentanyl Cit Inj 50 Mcg/Ml Amp 2ml) 100 mcg IVP X1 ONE Stop: 09/02/24 18:49 Last Admin: 09/02/24 19:40 Dose: 100 mcg Documented By: TC Sodium Chloride (Ns) 1,000 mls @ 100 mls/hr IV .Q10H SONNY Stop: 10/02/24 21:23 Last Admin: 09/02/24 21:51 Dose: 100 mls/hr Documented By: TC Morphine Sulfate (Morphine Sulf Inj 10 Mg/Ml Vial) 4 mg IVP X1 ONE Stop: 09/02/24 21:10 Last Admin: 09/03/24 03:30 Dose: 4 mg Documented By: Admin: 09/02/24 21:25 Dose: 4 mg Documented By: TC Morphine Sulfate (Morphine Sulf Inj 10 Mg/Ml Vial) 4 mg IVP Q1H PRN PRN Reason: PAIN SCALE 4-6 (Moderate Last Admin: 09/03/24 01:51 Dose: 4 mg Documented By: Admin: 09/02/24 23:41 Dose: 4 mg Documented By: TC Ondansetron HCl (Ondansetron Inj 2 Mg/Ml Inj 2 Ml) 4 mg IV X1 ONE; Protocol Stop: 09/02/24 21:10 Last Admin: 09/02/24 21:50 Dose: 4 mg Documented By: TC None Consultations Consultation(s) initiated? (list below): No Diagnosis Differential Diagnosis ED Complaint MDM: C1 to fracture, rib fractures Most likely diagnosis given after review of the tests above:: C1-C2 fracture right fifth the left 10th rib fracture Admission Indicated Admission indicated?: indicated Explain why admission is indicated or not indicated:: Transfer Admission Request Was there a request for admission?: No Disposition Plan Disposition Plan: Transfer Medical Decision Making Differential Diagnosis Differential Diagnosis: C1 to fracture, rib fractures Lab Data 09/02/24 19:53 09/02/24 19:53 Labs: Lab Results 09/02/24 Range/Units 19:53 WBC 6.6 (3.6-11.0) Thou/mm3 RBC 5.00 (4.00-5.20) Miln/mm3 Hgb 12.3 (12.0-16.0) g/dL Hct 37.8 (36.0-46.0) % MCV 76 L (80-100) fL MCH 24.6 L (25.0-35.0) pg MCHC 32.5 (31.0-37.0) g/dl RDW Std Deviation 46.3 (36.4-46.3) fL Plt Count 191 D (140-440) Thou/mm3 Neut % (Auto) 73 (37-80) % Lymph % (Auto) 17 (10-50) % [place] % (Auto) 8 (0-12) % Eos % (Auto) 1 (0-10) % Baso % (Auto) 1 (0-2.5) % Neut # (Auto) 4.9 (1.8-7.7) Thou/mm3 Lymph # (Auto) 1.1 (1.0-4.8) Thou/mm3 [place] # (Auto) 0.6 (0.0-0.8) Thou/mm3 Eos # (Auto) 0.1 (0.0-0.5) Thou/mm3 Baso # (Auto) 0.0 (0.0-0.2) Thou/mm3 Immature Gran # (Auto) 0.02 H (0.00-0.00) Thou/mm3 Absolute Nucleated RBC 0.00 (0.00-0.00) Thou/mm3 Immature Gran % 0 (0-0) % Nucleated RBC % 0 (0) /100 WBC PT (9.0-12.2) Seconds INR 1.1 (0.9-1.3) APTT 26.8 (22.0-36.0) Seconds Sodium 128 L (136-145) mMol/L Potassium 4.2 (3.4-5.1) mMol/L Chloride 95 L (98-107) mMol/L Carbon Dioxide 24.1 (20.0-31.0) mMol/L Anion Gap 9 (7-16) BUN 7 L (9-23) mg/dL Creatinine 0.7 (0.6-1.3) mg/dL Estim Creat Clear Calc 68.9 (>60) mL/min eGFR > 60 (60 - ) See Note BUN/Creatinine Ratio 10 L (12-20) Ratio Glucose 95 (74-106) mg/dL Calculated Osmolality 255 L (275-295) Calcium 9.2 (8.3-10.6) mg/dL Corrected Calcium 9.2 (8.5-10.1) mg/dL Total Bilirubin 0.4 (0.3-1.2) mg/dL AST 41 H (0-34) U/L ALT 18 (10-49) U/L Alkaline Phosphatase 85 (46-116) U/L Total Protein 7.5 (5.7-8.2) gm/dL Albumin 4.4 (3.4-4.8) gm/dL Globulin 3.1 (2.3-3.5) gm/dL Albumin/Globulin Ratio 1.4 (1.2-2.2) Ethyl Alcohol 52.3 H (0-10.0) mg/dL Discharge Plan Plan Patient Disposition: [facility] Pt Being Transferred to: [facility] Service Needed for Transfer: Neurosurgery Prescriptions/Referrals Prescriptions/Med Rec: No Action celecoxib 100 mg capsule 100 mg PO BID PRN (Reason: pain) Qty: 20 0RF diclofenac sodium 3 % gel 1 applic topical BID PRN (Reason: pain) Qty: 100 0RF lidocaine [AsperFlex (lidocaine)] 4 % adhesive patch,medicated 1 patch topical QDAY PRN (Reason: pain) Qty: 30 0RF guaifenesin [Mucinex] 600 mg tablet extended release 12hr 600 mg PO BID PRN (Reason: congestion) Qty: 20 0RF levothyroxine [Synthroid] 50 mcg Tablet 50 mcg PO QDAY Qty: 0 docusate sodium 100 mg capsule 1 cap PO QDAY PRN (Reason: Constipation) Patient Comments: TAKE ONE CAPSULE BY MOUTH ONCE DAILY NEEDED FOR CONSTIPATION metoprolol succinate 25 mg tablet extended release 24 hr 1 tab PO QDAY Patient Comments: TAKE ONE CAPSULE BY MOUTH EVERY DAY duloxetine 60 mg capsule,delayed release(DR/EC) 2 cap PO QDAY Patient Comments: TAKE ONE CAPSULE BY MOUTH EVERY DAY ondansetron HCl 4 mg tablet 4 mg PO Q8H PRN (Reason: Nausea) Patient Comments: TAKE ONE TABLET BY MOUTH EVERY 8 HOURS NEEDED FOR NAUSEA AND VOMITING irbesartan 75 mg tablet 75 mg PO QDAY cholecalciferol (vitamin D3) 125 mcg (5,000 unit) capsule 125 mcg PO QDAY Patient Comments: TAKE ONE CAPSULE BY MOUTH EVERY DAY VITAMIN ferrous sulfate 324 mg (65 mg iron) tablet,delayed release (DR/EC) 324 mg PO Q OTHER DAY 30 Days Qty: 15 1RF zolpidem 5 mg tablet 5 mg PO HS PRN (Reason: insomnia) 30 Days Qty: 30 0RF hydroxyzine pamoate 25 mg capsule 25 mg PO BID PRN (Reason: Anxiety ) 30 Days Qty: 10 0RF Lactobacillus acidophilus 10 billion cell capsule 10,000 mmu cells PO QDAY 30 Days Qty: 30 0RF Referrals: No Primary/Family,Physician [Primary Care Provider] - In 1 week Problem List Clinical Impression: Odontoid fracture, Left rib fracture, C1 cervical fracture, Right rib fracture Patient/Caregiver Discharge Instructions Print Language: Upper Sorbian Stand Alone Forms: Mary Beth Award Info., Patient Portal Info Letter
[2024-09-02 20:37] LABS: Alanine Aminotransferase 18 U/L (10-49); Albumin, Serum 4.4 gm/dL (3.4-4.8); Albumin/Globulin Ratio 1.4 (1.2-2.2); Alcohol, Blood Medical 52.3 mg/dL (0-10.0); Alkaline Phosphatase 85 U/L (46-116); Anion Gap 9 (7-16); Aspartate Amino Transferase 41 U/L (0-34); BUN/Creatinine Ratio 10 Ratio (12-20); Bilirubin,Total 0.4 mg/dL (0.3-1.2); Blood Urea Nitrogen 7 mg/dL (9-23); Calcium 9.2 mg/dL (8.3-10.6); Calcium (Corrected) 9.2 mg/dL (8.5-10.1); Carbon Dioxide 24.1 mMol/L (20.0-31.0); Chloride 95 mMol/L (98-107); Creatinine (Component) 0.7 mg/dL (0.6-1.3); Estimated Creatinine Clearance 68.9 mL/min (>60); Globulin 3.1 gm/dL (2.3-3.5); Glucose 95 mg/dL (74-106); Osmolality,Calculated 255 (275-295); Potassium 4.2 mMol/L (3.4-5.1); Sodium 128 mMol/L (136-145); Total Protein 7.5 gm/dL (5.7-8.2); eGFR > 60 See Note
[2024-09-02 21:10] VITALS: BP 169/89; PULSE 87; RESP 14; TEMP 36.6; O2SAT 100
[2024-09-02] MEDS: MORPHINE SULF INJ 10 MG/ML VIAL 4 MG IVP ×2 (21:25→23:41)
[2024-09-02 21:35] LABS: Basophils % (Auto) 1 % (0-2.5); Eosinophils # (Auto) 0.1 Thou/mm3 (0.0-0.5); Eosinophils % (Auto) 1 % (0-10); Hematocrit 37.8 % (36.0-46.0); Hemoglobin 12.3 g/dL (12.0-16.0); Immature Granulocytes % (Auto) 0 % (0-0); Immature Granulocytes Auto 0.02 Thou/mm3 (0.00-0.00); Lymphocytes # (Auto) 1.1 Thou/mm3 (1.0-4.8); Lymphocytes % (Auto) 17 % (10-50); Mean Corpuscular HGB Conc 32.5 g/dl (31.0-37.0); Mean Corpuscular Hemoglobin 24.6 pg (25.0-35.0); Mean Corpuscular Volume 76 fL (80-100); Monocytes # (Auto) 0.6 Thou/mm3 (0.0-0.8); Monocytes % (Auto) 8 % (0-12); Neutrophils # (Auto) 4.9 Thou/mm3 (1.8-7.7); Neutrophils % (Auto) 73 % (37-80); Nucleated Red Blood Cell % 0 /100 WBC (0); Platelet Count 191 Thou/mm3 (140-440); White Blood Count 6.6 Thou/mm3 (3.6-11.0)
[2024-09-02 21:41] LABS: RDW Standard Deviation 46.3 fL (36.4-46.3)
[2024-09-02] MEDS: ONDANSETRON INJ 2 MG/ML INJ 2 ML 4 MG IV (21:50)
[2024-09-02] MEDS: SODIUM CHLORIDE 0.9% 1000 ML 1,000 ML 100 ML IV (21:51)
--- NOTE | 2024-09-02 22:28 | PC.NURSE ---
2114 FAXED INFO TO [facility]. 2219 REFAXED INFO TO [facility] STATE THEY DID NOT RECEIVE. 2224 SHAY SPEAKING WITH [facility] AT THIS TIME.
[2024-09-02 22:55] LABS: INR 1.1 (0.9-1.3); Partial Thromboplastin Time 26.8 Seconds (22.0-36.0)
--- NOTE | 2024-09-02 23:06 | EDNOTE_ITS ---
Emergency Room Addendum Addendum Narrative: 2300: Care assumed from Adam Collins NP. Past medical, surgical, social and family history reviewed. Vitals and home medications reviewed. Results and treatment plan discussed. I will assume the care of the patient at this time and will follow the patient, pending transfer/callback from [facility]. Please refer to the emergency department record for history and examination from initial visit. 2310: Patient has normal motor and sensations, and is complaining of neck pain. Patient has Morphine 4mg PRN ordered. 0307: Dr. Vang from [facility] accepts the patient for transfer.
[2024-09-03 00:36] VITALS: BP 154/93; PULSE 97; RESP 18; TEMP 36.6; O2SAT 100
[2024-09-03 01:00] VITALS: BP 145/76; PULSE 94; RESP 15; O2SAT 94
[2024-09-03] MEDS: MORPHINE SULF INJ 10 MG/ML VIAL 4 MG IVP ×2 (01:51→03:30)
[2024-09-03 02:00] VITALS: BP 144/74; PULSE 95; RESP 14; O2SAT 92
[2024-09-03 03:00] VITALS: BP 151/81; PULSE 93; RESP 13; O2SAT 94
[2024-09-03 03:13] VITALS: BP 151/81; PULSE 102; RESP 18; TEMP 36.4; O2SAT 100
--- NOTE | 2024-09-07 17:13 | PD.RESEVENT ---
Documentation for date of: 09/07/24 Event Note Event Note: network contract manager reached out with transfer packet, for transfer back to patient jose d Gillis, 64-year-old female, past medical history of polysubstance abuse, hypertension, CHF who was transferred from ER to [facility] following a fall and resulting in trauma to head and neck, resulting in unstable C1 fracture, patient was transferred for neurosurgical services, spoke to BESS Enrique, neurosurgery department from [facility], who states that the patient is s/p C1-C2 fusion on 09/04/2024, reported no neurological deficit., Recommended following up with neurosurgery in [address] Lee Grant's midlevel provider, for staple removal and later in [address] Lee Grant, with x-ray of cervical spine in the postop clinic. Recommended to wear Raymond collar, when awake for next 4 weeks. Patient is pending occupational therapy and placement to acute rehab, has stable vitals and is on room air at the time of our discussion. network contract manager Paige updated about accepting the transfer back to [facility]. Plan of care discussed with my attending Dr. Alessandro Roberts pgy 2
== END 2024-09-03 03:46 | disposition short-term general hospital (02) ==
LOC: SERX 19:20
PROVIDERS: Registered Nurse General Practice; Emergency Provider Emergency Medicine
DX: S12.111A Posterior displaced Type II dens fracture, initial encounter for closed fracture (principal); S12.001A Unspecified nondisplaced fracture of first cervical vertebra, initial encounter for closed fracture; S12.100A Unspecified displaced fracture of second cervical vertebra, initial encounter for closed fracture; S22.43XA Multiple fractures of ribs, bilateral, initial encounter for closed fracture; S09.90XA Unspecified injury of head, initial encounter; W10.9XXA Fall (on) (from) unspecified stairs and steps, initial encounter; Z23 Encounter for immunization; Z75.1 Person awaiting admission to adequate facility elsewhere
CPT/HCPCS: 36415; 70450; 71260; 72125; 74177; 80053; 80320; 85025; 85610; 85730; 90471; 90715; 96374; 99285; A4649; J2270; J2405; J3010; J7030; Q9967; G0480

== ENCOUNTER 2024-09-09 21:04 | Inpatient (IN) | payer MEDICAID, SELFPAY ==
[2024-09-09 21:42] VITALS: BMI 25.0
--- NOTE | 2024-09-09 21:55 | ESHP_ITS ---
<Statement entered by Norberto Herrera MD - 09/10/24 10:36> I have discussed and was present for the essential components of the history, physical examination, diagnosis, and treatment plan with the resident. I agree with the patient's care as documented by the resident and amended herein by me. Norberto Herrera MD FACP. Documentation for date of: 09/09/24 HPI History of Present Illness Chief complaint: Transfer from [facility] s/p neurosurgical C1-C2 fusion History of present illness: Patient is a 64-year-old female with past medical history of hypertension, hypothyroidism, polysubstance abuse, depression, anxiety, and panic disorder who is now being transferred here from [facility] s/p neurosurgical C1-C2 fusion and instrumentation by Dr. Turner on 09/04/2024. On 09/02/2023, patient presented to [facility] ED after a ground-level mechanical fall with hit to head and was diagnosed with C1 anterior ring fracture and type II odontoid fracture and transferred out to [facility] for neurosurgical evaluation. Patient also has right 10th rib and left 5th rib fractures. Patient is currently Post-Op Day 6, did well post operatively without complications. Currently patient complains of pain in the neck and discomfort with the cervical collar. No neuro deficits. Per physical therapy/occupational therapy notes at [facility] patient had limited mobility and upper extremity strength secondary to pain, thus recommended acute rehab. Will obtain PT evaluation here and recommendations for discharge. Review of Systems Review of systems otherwise negative except what is mentioned above. Past Medical History Past Medical History Comments [facility] COMMENT: Past Medical History: Hypertension, hypothyroidism, polysubstance abuse, depression, anxiety, and panic disorder Family History: History of cancer in brother and sister Surgical History: Right wrist fusion and autograft, ulnar shortening osteotomy, breast augmentation Social History: Occasional alcohol and marijuana use, denies tobacco use. Lives alone, purler lives two houses down. Occasionally uses a cane to ambulate. Current Medications: Allergies: Doxycycline (hives), penicillin (hives), gabapentin (muscle spasms, twitching) Exam Narrative Exam Physical Exam General: Awake and in no acute distress. Conversational and non-toxic appearing. Patient appears euvolemic. HEENT: Normocephalic, atraumatic, mucous membranes moist. Mona collar in place. Stapled midline posterior cervical surgical incision is clean, dry, and intact without active erythema, drainage, or edema. Heart: Regular rate and rhythm, no murmurs. Lungs: Clear to auscultation with no wheezing or crackles. Abdomen: Soft, nondistended, nontender, positive bowel sounds. ?No guarding or rebound tenderness. Neurologic: Alert and oriented x3, no gross neurological deficit, and patient able to move all 4 extremities. Extremities: No edema. Skin: No rash or ecchymoses. Results: Labs 09/10/24 05:52 09/10/24 05:52 Quality Measures Quality Measures VTE prophylaxis Medications Home Medications and Allergies Home Medications ?Medication ?Instructions ?Recorded ?Confirmed ?Type levothyroxine 50 mcg tablet 50 mcg PO QDAY THYROID #0 tabs 12/02/14 09/10/24 History (Synthroid) docusate sodium 100 mg capsule 1 cap PO QDAY PRN Const ipation 04/03/22 09/10/24 History duloxetine 60 mg capsule,delayed 2 cap PO QDAY 2 09/10/24 History release metoprolol succinate 25 mg 1 tab PO QDAY 04/03/2208/14 History tablet,extended release 24 hr cholecalciferol (vitamin D3) 125 125 mcg PO QDAY 08/0509/10/24 History mcg (5,000 unit) capsule irbesartan 75 mg tablet 75 mg PO QDAY 08/05/2409/10 History ondansetron HCl 4 mg tablet 4 mg PO Q8H PRN Nausea 09/10/24 History hydrocodone 10 mg-acetaminophen 1 tab PO Q6H PRN pain 09/10/24 09/10/24 History 325 mg tablet lorazepam 1 mg tablet 1 mg PO Q12H PRN anxiety 09/10/24 History Allergies Allergy/AdvReac Type Severity Reaction Status Date / Time adhesive Allergy Severe HIVES Verified 08/22/24 13:44 doxycycline Allergy Severe HIVES Verified 08/22/24 13:44 Penicillins Allergy Severe Hives Verified 08/22/24 13:44 Assessment & Plan Plan 64-year-old female with past medical history of hypertension, hypothyroidism, polysubstance abuse, depression, anxiety, and panic disorder who is now being transferred here to [facility] from [facility] s/p neurosurgical C1-C2 fusion, now pending physical therapy and possible acute rehab recommendations. #C1 cervical fracture, odontoid fracture s/p C1-C2 arthrodesis Patient underwent C1-C2 fusion, instrumentation, pedicle screw fixation, and bone allograft on 09/04/[address] Lee Grant, [facility] Neurosurgeon. Patient was transferred to [place] on 09/09/2023, PT/OT recommended acute rehab placement. -Recommended by Neurosurgery to keep Mona collar on while awake for 4 weeks post-op, until 10/03/2024. -Order [place] collar for patient for use during shower -Physical therapy evaluation -Pending recommendations for acute rehab -Pain control: acetaminophen 650 mg q6h as needed for mild pain, [place] 5-325 mg q6h as needed for moderate to severe pain, morphine 1 mg q8h for breakthrough pain -Discharge instructions as follows (written in discharge chart) -Plan for 2-week staple removal appointment with Neurosurgery on 09/21/2024 -Plan for 4-week follow up with Dr. Turner with updated cervical spine XR brought to appointment on 10/02/2024 -Please call for appointments: [address] [place] [address] #Nondisplaced right 10th rib fracture #Nondisplaced left 5th rib fracture CT chest/abdomen/pelvis on 09/02/2024 revealed nondisplaced rib fractures which have been managed conservatively. -Incentive spirometry 10 times per hour while awake -Lidocaine patch as needed -Encourage ambulation -Physical therapy #Euvolemic hypoosmolar hyponatremia Patient has a history of hyponatremia noted to be chronic since 2018. 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 Patient states she drinks 5-6 large canisters of water per day. Patient states uses an electrolyte mix for replacement at home. Sodium consistently low with low osmolality. Urine sodium from 07/2024 was <15. At [facility], she was started on salt tablets. -Continued NaCl tabs at 1g BID -Limit water intake to 1500 ml per day -Monitor BMP #History of hypertension Patient history. Patient takes irbesartan, metoprolol. -Continue home metoprolol XL 25 mg qday #History of hyperlipidemia Patient history, takes simvastatin. -Continue atorvastatin 40 mg HS #History of hypothyroidism Patient history. Last TSH 3.66 07/2024. -Continue home levothyroxine 50 mcg qday #History of anxiety #History of depression #History of panic disorder Patient history, takes hydroxyzine and duloxetine at home. -Continue home hydroxyzine 25 mg QID prn anxiety -Continue home duloxetine 60 mg BID #History of polysubstance abuse At the time of ED evaluation on 09/02, patient's EtOH level was 52.3 and she endorsed drinking prior to mechanical fall. Prior Utox have been positive for marijuana which patient endorses. Patient states willing to cut back on alcohol but not sure if she can for marijuana. -Counseled on reduction of alcohol and marijuana use DVT prophylaxis: Lovenox 40 mg subQ GI prophylaxis: Pantoprazole 40 mg PO qday Diet: Regular [place]: None Lines: Peripheral IV Antibiotics: None CODE STATUS: FULL Reason for hospitalization: s/p C1-C2 fusion pending possible acute rehab placement Patient plan of care was discussed with the attending physician, Dr. Herrera. Janell Conrad, PGY-2
[2024-09-09 22:36] LABS: Basophils % (Auto) 0 % (0-2.5); Eosinophils # (Auto) 0.2 Thou/mm3 (0.0-0.5); Eosinophils % (Auto) 3 % (0-10); Hematocrit 39.3 % (36.0-46.0); Hemoglobin 12.9 g/dL (12.0-16.0); Immature Granulocytes % (Auto) 1 % (0-0); Immature Granulocytes Auto 0.06 Thou/mm3 (0.00-0.00); Lymphocytes # (Auto) 1.7 Thou/mm3 (1.0-4.8); Lymphocytes % (Auto) 23 % (10-50); Mean Corpuscular HGB Conc 32.8 g/dl (31.0-37.0); Mean Corpuscular Hemoglobin 25.1 pg (25.0-35.0); Mean Corpuscular Volume 77 fL (80-100); Monocytes # (Auto) 0.9 Thou/mm3 (0.0-0.8); Monocytes % (Auto) 13 % (0-12); Neutrophils # (Auto) 4.3 Thou/mm3 (1.8-7.7); Neutrophils % (Auto) 60 % (37-80); Nucleated Red Blood Cell % 0 /100 WBC (0); Platelet Count 326 Thou/mm3 (140-440); Red Blood Count 5.14 Miln/mm3 (4.00-5.20); White Blood Count 7.1 Thou/mm3 (3.6-11.0)
[2024-09-09 22:40] VITALS: BP 156/81; PULSE 74; RESP 17; TEMP 36.1; O2SAT 98
[2024-09-09 22:44] LABS: Anion Gap 7 (7-16); BUN/Creatinine Ratio 20 Ratio (12-20); Blood Urea Nitrogen 12 mg/dL (9-23); Calcium 10.2 mg/dL (8.3-10.6); Carbon Dioxide 25.7 mMol/L (20.0-31.0); Chloride 90 mMol/L (98-107); Creatinine (Component) 0.6 mg/dL (0.6-1.3); Glucose 108 mg/dL (74-106); Osmolality,Calculated 248 (275-295); Potassium 4.1 mMol/L (3.4-5.1); Sodium 123 mMol/L (136-145); eGFR > 60 See Note
[2024-09-09] MEDS: HYDROcodone/APAP 5/325 TABLET 1 TAB PO (23:05)
[2024-09-10] VITALS (9 sets, daily range): BP systolic 126–165; BP diastolic 69–97; PULSE 64–88; RESP 17–99; TEMP 36.1–36.7; O2SAT 98–99; BMI 13.0
[2024-09-10] MEDS: LORazepam 0.5 MG TABLET 1 MG PO (00:19)
--- NOTE | 2024-09-10 01:07 | PC.NURSE ---
Dr. Easton was made aware that pt is complaining of pain and asking fro morphine.
[2024-09-10] MEDS: MORPHINE SULF INJ 10 MG/ML VIAL IVP (01:49)
[2024-09-10] MEDS: LEVOTHYROXINE SODIUM 25 MCG TABLET 50 MCG PO (05:41)
[2024-09-10 06:18] LABS: Basophils % (Auto) 1 % (0-2.5); Eosinophils # (Auto) 0.3 Thou/mm3 (0.0-0.5); Eosinophils % (Auto) 4 % (0-10); Hematocrit 36.6 % (36.0-46.0); Hemoglobin 12.1 g/dL (12.0-16.0); Immature Granulocytes % (Auto) 1 % (0-0); Immature Granulocytes Auto 0.05 Thou/mm3 (0.00-0.00); Lymphocytes # (Auto) 1.8 Thou/mm3 (1.0-4.8); Lymphocytes % (Auto) 24 % (10-50); Mean Corpuscular HGB Conc 33.1 g/dl (31.0-37.0); Mean Corpuscular Volume 76 fL (80-100); Monocytes # (Auto) 1.1 Thou/mm3 (0.0-0.8); Monocytes % (Auto) 15 % (0-12); Neutrophils # (Auto) 4.1 Thou/mm3 (1.8-7.7); Neutrophils % (Auto) 56 % (37-80); Nucleated Red Blood Cell % 0 /100 WBC (0); Platelet Count 323 Thou/mm3 (140-440); Red Blood Count 4.84 Miln/mm3 (4.00-5.20); White Blood Count 7.3 Thou/mm3 (3.6-11.0)
[2024-09-10 06:53] LABS: Anion Gap 9 (7-16); BUN/Creatinine Ratio 20 Ratio (12-20); Blood Urea Nitrogen 10 mg/dL (9-23); Calcium 9.8 mg/dL (8.3-10.6); Carbon Dioxide 22.8 mMol/L (20.0-31.0); Chloride 93 mMol/L (98-107); Creatinine (Component) 0.5 mg/dL (0.6-1.3); Glucose 98 mg/dL (74-106); Magnesium 1.8 mg/dL (1.6-2.6); Osmolality,Calculated 250 (275-295); Phosphorous 3.9 mg/dL (2.4-5.1); Potassium 3.6 mMol/L (3.4-5.1); Sodium 125 mMol/L (136-145); eGFR > 60 See Note
[2024-09-10] MEDS: HYDROcodone/APAP 5/325 TABLET 1 TAB PO ×2 (07:58→19:35)
[2024-09-10] MEDS: ENOXAPARIN SOD INJ 40 MG/0.4 ML SYRINGE SC (08:17)
[2024-09-10] MEDS: METOPROLOL SUCCINATE XL 25 MG TABCR PO (08:18)
[2024-09-10] MEDS: SODIUM CHLORIDE 1 GM TABLET PO ×2 (08:18→21:24)
[2024-09-10] MEDS: DULoxetine HCL 30 MG CAPSULE 60 MG PO ×2 (08:18→21:24)
[2024-09-10] MEDS: PANTOPRAZOLE 40 MG TABLET PO (08:18)
[2024-09-10] MEDS: hydrOXYzine HCL 25 MG TABLET PO (08:18)
--- NOTE | 2024-09-10 11:03 | PC.SS ---
Miryam Gillis is 64-year-old female admitted to Med-Surg for Cervical FX, Hyponatremia. SS conducted bedside contact with the patient to complete initial assessment and to discuss discharge planning.? Patient confirmed demographic information. Patient identifies her friend Lulu Weeks [phone] as her surrogate decision maker. Patient resides at home alone. Pt states she is typically able to complete all ADL is independently, no need for any source of DME. Pts PCP is Dr. So (last visit week august) and her pharmacy of choice is [facility] on [address]. Pt reports needing Rehab and her #1 choice is [facility], second would be [facility]. SS informed pt we would need authorization and PT in order to start process. SS informed pt we would keep her informed of the process. No further intervention required at this time, social science professor would be available to address any further concerns. DC Plan: SNF Contact: Lulu Weeks [phone] PCP: Saray
--- NOTE | 2024-09-10 11:24 | PC.SS ---
PASRR initiated, pt requires LVL 2 Mental Health Eval due to hx of Depressions, anxiety, and panic disorder on Duloxetine 60 mg PO BID and Lorazepam 1mg PO Q day
[2024-09-10] MEDS: Magnesium Sulfate 2 GM Ivpb 2 GM/50 ML BAG IV (11:25)
[2024-09-10] MEDS: METOCLOPRAMIDE INJ 5 MG/ML VIAL 2 ML 10 MG IVP (12:03)
[2024-09-10] MEDS: DiphenhydrAMINE INJ 50 MG/ML VIAL 25 MG IV (12:04)
[2024-09-10] MEDS: KETOROLAC INJ 30 MG/ML VIAL 15 MG IVP ×2 (12:04→21:25)
[2024-09-10] MEDS: Magnesium Sulfate 1 gm Ivpb 1 GM/100 ML BAG IV (13:05)
--- NOTE | 2024-09-10 14:40 | ESPR_ITS ---
<Statement entered by Donnie Partida MD - 09/10/24 16:32> Patient is transferred back from [facility] after having multiple fractures and was managed by neurosurgery. Patient appeared distressed this morning and was crying due to severe headaches. Patient received Tylenol, [place] and morphine however they did not help her with the headache. Migraine cocktail was given including Toradol, magnesium and Reglan. PT evaluation was ordered. Home medications were reconciled. Will continue with pain management and monitor patient closely. Sodium is chronically low therefore we will continue salt tablets. Started with amlodipine for blood pressure management and holding irbesartan given hyponatremia. All labs and orders were reviewed. I saw and examined the patient, and I agree with current management stated by Dr Rolando MD,PGY1. Plan of care was discussed with the attending physician and resident physician. Disclaimer: Despite multiple revisions, due to the dictation software being used, the document bellow may not be free of grammatical errors including phonetic/typographic errors. However, this does not deter from our commitment to providing health care in the patient's best interest in mind. Dr. Jaquan MD, PGY 2 Documentation for date of: 09/10/24 Subjective Subjective Interval history: Patient appears in distress this morning secondary to headache. Notes that she has been having consistent headaches since her fall which is not relieved with Tylenol, [place] or morphine. CT of head negative for bleed on 09/02 done in the ED during initial fall. Headache cocktail was given including Toradol, magnesium and Rocephin. Exam Vital Signs Temp Pulse Resp BP Pulse Ox O2 Del Method 98.0 F 70 18 136/90 H 99 Room Air 09/10/24 12:09/10/24 12:09/10/24 12:09/10/24 12:09/10/24 12:09/10/24 12:00 Narrative Exam Constitutional: In distress secondary to headache Head: Normocephalic, well-healed abrasion to the left upper forehead Eyes: no conjunctival injection , symmetrical lids. ENMT: Moist Mucous Membranes Neck: C-collar in place CVS: RRR, S1 and S2 present, no murmurs, rubs or gallops . RESP: CTAB, no increased work of breathing, no rales, rhonchi or wheezing Skin: Warm to touch, Dry. Neuro: Moves all limbs spontaneously, 5 out of 5 strength and sensation throughout Psych: (AAO) x3 Objective Labs 09/10/24 05:52 09/10/24 05:52 Labs: Laboratory Results - last 24 hr 09/09/24 09/10/24 22:16 05:52 WBC 7.1 7.3 RBC 5.14 4.84 Hgb 12.9 12.1 Hct 39.3 36.6 MCV 77 L 76 L MCH 25.1 25.0 MCHC 32.8 33.1 RDW Std Deviation 47.0 H 47.0 H Plt Count 326 D 323 Neut % (Auto) 60 56 Lymph % (Auto) 23 24 [place] % (Auto) 13 H 15 H Eos % (Auto) 3 4 Baso % (Auto) 0 1 Neut # (Auto) 4.3 4.1 Lymph # (Auto) 1.7 1.8 [place] # (Auto) 0.9 H 1.1 H Eos # (Auto) 0.2 0.3 Baso # (Auto) 0.0 0.0 Immature Gran # (Auto) 0.06 H 0.05 H Absolute Nucleated RBC 0.00 0.00 Immature Gran % 1 H 1 H Nucleated RBC % 0 0 Sodium 123 L 125 L Potassium 4.1 3.6 D Chloride 90 L 93 L Carbon Dioxide 25.7 22.8 Anion Gap 7 9 BUN 12 10 Creatinine 0.6 0.5 L Estim Creat Clear Calc Not Performed. 105.0 eGFR > 60 > 60 BUN/Creatinine Ratio 20 20 Glucose 108 H 98 Calculated Osmolality 248 L 250 L Calcium 10.2 9.8 Phosphorus 3.9 Magnesium 1.8 Quality Measures Quality Measures VTE prophylaxis Assessment & Plan Assessment Current Active Medications: Generic Name Dose Route Start Last Admin Trade Name Freq PRN Reason Stop Dose Admin Acetaminophen 650 mg 09/09/24 22:59 Acetaminophen 325 Mg Tablet PO 10/09/24 22:49 Q6H PRN Fever >100.4 or Pain 1-3 Hydrocodone Bitart/Acetaminophen 1 tab 09/09/24 22:53 09/10/24 07:58 Hydrocodone/Apap 5/325 Tablet PO 09/14/24 22:52 1 tab Q6HR PRN Administration PAIN SCALE 4-10(Mod-Sev Atorvastatin Calcium 40 mg 09/10/24 21:00 Atorvastatin Calcium 20 Mg Tablet PO 10/10/24 20:59 HS SONNY Duloxetine HCl 60 mg 09/10/24 09:00 09/10/24 08:18 Duloxetine Hcl 30 Mg Capsule PO 10/10/24 08:59 60 mg BID SONNY Administration Enoxaparin Sodium 40 mg 09/10/24 09:00 09/10/24 08:17 Enoxaparin Sod Inj 40 Mg/0.4 Ml Syringe SC 09/24/24 08:59 40 mg QDAY SONNY Administration Hydroxyzine HCl 25 mg 09/10/24 03:28 09/10/24 08:18 Hydroxyzine Hcl 25 Mg Tablet PO 10/10/24 05:59 25 mg QID PRN Administration ANXIETY Levothyroxine Sodium 50 mcg 09/10/24 06:00 09/10/24 05:41 Levothyroxine Sodium 25 Mcg Tablet PO 10/10/24 05:59 50 mcg ACBR SONNY Administration Lidocaine 1 patch 09/10/24 08:31 Lidocaine 5% 1 Patch TOP 10/10/24 03:23 QDAY PRN PAIN Protocol Metoprolol Succinate 25 mg 09/10/24 09:00 09/10/24 08:18 Metoprolol Succinate Xl 25 Mg Tabcr PO 10/10/24 08:59 25 mg QDAY SONNY Administration Morphine Sulfate 1 mg 09/10/24 01:14 09/10/24 01:49 Morphine Sulf Inj 10 Mg/Ml Vial IVP 09/15/24 01:13 1 mg Q8H PRN Administration BREAKTHROUGH PAIN (SEVERE) Ondansetron HCl 4 mg 09/09/24 22:50 Ondansetron Inj 2 Mg/Ml Inj 2 Ml IV 10/09/24 22:49 Q6H PRN NAUSEA OR VOMITING Protocol Pantoprazole Sodium 40 mg 09/10/24 09:00 09/10/24 08:18 Pantoprazole 40 Mg Tablet PO 10/10/24 08:59 40 mg QDAY SONNY Administration Polyethylene Glycol 17 gm 09/10/24 09:00 09/10/24 08:21 Polyethylene Glycol 17 Gm Packet PO 10/10/24 08:59 Not Given QDAY SONNY Sennosides 1 tab 09/10/24 03:15 Senna Tablet PO 10/10/24 03:14 QDAY PRN CONSTIPATION Protocol Sodium Chloride 1 gm 09/10/24 09:00 09/10/24 08:18 Sodium Chloride 1 Gm Tablet PO 10/10/24 08:59 1 gm BID SONNY Administration Plan 64-year-old female with past medical history of hypertension, hypothyroidism, polysubstance abuse, depression, anxiety, and panic disorder who is now being transferred here to [facility] from [facility] s/p neurosurgical C1-C2 fusion, now pending physical therapy and possible acute rehab recommendations. #C1 cervical fracture, odontoid fracture s/p C1-C2 arthrodesis Patient underwent C1-C2 fusion, instrumentation, pedicle screw fixation, and bone allograft on 09/04/[address] Lee Grant, [facility] Neurosurgeon. Patient was transferred to [place] on 09/09/2023, PT/OT recommended acute rehab placement. -Recommended by Neurosurgery to keep [place] collar on while awake for 4 weeks post-op, until 10/03/2024. -Order [place] collar for patient for use during shower -Physical therapy evaluation -Pending recommendations for acute rehab -Pain control: acetaminophen 650 mg q6h as needed for mild pain, [place] 5-325 mg q6h as needed for moderate to severe pain, morphine 1 mg q8h for breakthrough pain -Headache cocktail today including magnesium, Rocephin and Toradol given today. Patient endorsing headache since the fall. Negative head CT done on initial ED evaluation. -Discharge instructions as follows (written in discharge chart) -Plan for 2-week staple removal appointment with Neurosurgery on 09/21/2024 -Plan for 4-week follow up with Dr. Turner with updated cervical spine XR brought to appointment on 10/02/2024 -Please call for appointments: [phone] [place] [address] #Nondisplaced right 10th rib fracture #Nondisplaced left 5th rib fracture CT chest/abdomen/pelvis on 09/02/2024 revealed nondisplaced rib fractures which have been managed conservatively. -Incentive spirometry 10 times per hour while awake -Lidocaine patch as needed -Encourage ambulation -Physical therapy #Euvolemic hypoosmolar hyponatremia Patient has a history of hyponatremia noted to be chronic since 2018. 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 Patient states she drinks 5-6 large canisters of water per day. Patient states uses an electrolyte mix for replacement at home. Sodium consistently low with low osmolality. Urine sodium from 07/2024 was <15. At [facility], she was started on salt tablets. -Continued NaCl tabs at 1g BID -Limit water intake to 1500 ml per day -Monitor BMP #History of hypertension Patient history. Patient takes irbesartan, metoprolol. -Continue home metoprolol XL 25 mg qday ?Substituting irbesartan with amlodipine 10 mg daily (due to irbesartan sodium lowering effects) #History of hyperlipidemia Patient history, takes simvastatin. -Continue atorvastatin 40 mg HS #History of hypothyroidism Patient history. Last TSH 3.66 07/2024. -Continue home levothyroxine 50 mcg qday #History of anxiety #History of depression #History of panic disorder Patient history, takes hydroxyzine and duloxetine at home. -Continue home hydroxyzine 25 mg QID prn anxiety -Continue home duloxetine 60 mg BID #History of polysubstance abuse At the time of ED evaluation on 09/02, patient's EtOH level was 52.3 and she endorsed drinking prior to mechanical fall. Prior Utox have been positive for marijuana which patient endorses. Patient states willing to cut back on alcohol but not sure if she can for marijuana. -Counseled on reduction of alcohol and marijuana use DVT prophylaxis: Lovenox 40 mg subQ GI prophylaxis: Pantoprazole 40 mg PO qday Diet: Regular Santoyo: None Lines: Peripheral IV Antibiotics: None CODE STATUS: FULL Reason for hospitalization: s/p C1-C2 fusion pending possible acute rehab placement Patient plan of care was discussed with the attending physician, Dr. Husain. Celestino Marshall, PGY1 Attending Provider Attestation/Addendum I attest that I was physically present for the evaluation, physical examination, lab and imaging review of the patient with the residents. I discussed the case with the residents and agree with the findings and plans of care as documented above. At bedside today, patient was tearful about her fracture and pain. Discussed to her about her surgery, agreed on adding an NSAID and see if that helps with her headache. Vital signs lab results are stable. physical therapy recommended SNF placement for continuation of physical therapy. Noted to have slightly high blood pressure this morning, we will start her on amlodipine. Pending placement to SNF. Santi Husain MD
--- NOTE | 2024-09-10 16:12 | PC.CC ---
SS submitted SNF inquiry through [employer] platform. Pending Level 2 PASSR Clearance. Patient is pending PT eval as well.
[2024-09-10] MEDS: ATORVASTATIN CALCIUM 20 MG TABLET 40 MG PO (21:24)
[2024-09-10] MEDS: DiphenhydrAMINE INJ 50 MG/ML VIAL 12.5 MG IVP (21:25)
[2024-09-11] VITALS (9 sets, daily range): BP systolic 94–155; BP diastolic 64–92; PULSE 68–88; RESP 16–97; TEMP 36.1–36.6; O2SAT 97–100
[2024-09-11] MEDS: MORPHINE SULF INJ 10 MG/ML VIAL IVP ×3 (00:42→20:10)
[2024-09-11] MEDS: hydrOXYzine HCL 25 MG TABLET PO ×2 (00:42→22:08)
--- NOTE | 2024-09-11 01:59 | PC.NURSE ---
Emmy JONES went in room to assess patient's pain level and patient states her pain is not going away and she feels very anxious. MD Conrad notified of this and she said she will come assess the patient
[2024-09-11] MEDS: KETOROLAC INJ 30 MG/ML VIAL 15 MG IVP (02:30)
[2024-09-11] MEDS: LORazepam 0.5 MG TABLET 1 MG PO ×2 (02:30→14:50)
[2024-09-11] MEDS: LEVOTHYROXINE SODIUM 25 MCG TABLET 50 MCG PO (05:22)
[2024-09-11 05:53] LABS: Basophils % (Auto) 1 % (0-2.5); Eosinophils # (Auto) 0.4 Thou/mm3 (0.0-0.5); Eosinophils % (Auto) 5 % (0-10); Hematocrit 33.3 % (36.0-46.0); Hemoglobin 10.8 g/dL (12.0-16.0); Immature Granulocytes % (Auto) 1 % (0-0); Immature Granulocytes Auto 0.04 Thou/mm3 (0.00-0.00); Lymphocytes # (Auto) 1.9 Thou/mm3 (1.0-4.8); Lymphocytes % (Auto) 29 % (10-50); Mean Corpuscular HGB Conc 32.4 g/dl (31.0-37.0); Mean Corpuscular Hemoglobin 25.1 pg (25.0-35.0); Mean Corpuscular Volume 77 fL (80-100); Monocytes # (Auto) 1.1 Thou/mm3 (0.0-0.8); Monocytes % (Auto) 17 % (0-12); Neutrophils # (Auto) 3.2 Thou/mm3 (1.8-7.7); Neutrophils % (Auto) 48 % (37-80); Nucleated Red Blood Cell % 0 /100 WBC (0); Platelet Count 323 Thou/mm3 (140-440); White Blood Count 6.6 Thou/mm3 (3.6-11.0)
[2024-09-11 06:23] LABS: Anion Gap 9 (7-16); BUN/Creatinine Ratio 31 Ratio (12-20); Blood Urea Nitrogen 25 mg/dL (9-23); Calcium 9.2 mg/dL (8.3-10.6); Carbon Dioxide 23.2 mMol/L (20.0-31.0); Chloride 92 mMol/L (98-107); Creatinine (Component) 0.8 mg/dL (0.6-1.3); Estimated Creatinine Clearance 65.6 mL/min (>60); Glucose 102 mg/dL (74-106); Magnesium 2.2 mg/dL (1.6-2.6); Osmolality,Calculated 254 (275-295); Phosphorous 4.8 mg/dL (2.4-5.1); Potassium 4.1 mMol/L (3.4-5.1); Sodium 124 mMol/L (136-145); eGFR > 60 See Note
[2024-09-11] MEDS: SODIUM CHLORIDE 1 GM TABLET PO ×3 (09:35→20:11)
[2024-09-11] MEDS: PANTOPRAZOLE 40 MG TABLET PO (09:44)
[2024-09-11] MEDS: METOPROLOL SUCCINATE XL 25 MG TABCR PO (09:44)
[2024-09-11] MEDS: DULoxetine HCL 30 MG CAPSULE 60 MG PO ×2 (09:44→20:10)
[2024-09-11] MEDS: ENOXAPARIN SOD INJ 40 MG/0.4 ML SYRINGE SC (09:45)
[2024-09-11 14:32] LABS: Sodium 125 mMol/L (136-145)
[2024-09-11] MEDS: HYDROcodone/APAP 5/325 TABLET 1 TAB PO (14:50)
--- NOTE | 2024-09-11 15:09 | ESPR_ITS ---
<Statement entered by Donnie Partida MD - 09/11/24 15:45> Patient was seen and examined at the bedside. Patient has been improved. Overnight patient received Toradol and diphenhydramine due to headache. Patient's sodium dropped today to 124. Therefore additional salt tablet was given x 1. PT evaluated the patient and patient will be going to [facility]. Currently we are waiting on SNF authorization. Will evaluate her sodium levels tomorrow and possibly increase salt tablets to 3 times daily. Will continue with current management. All labs and orders were reviewed. I saw and examined the patient, and I agree with current management stated by Dr Rolando MD,PGY1. Plan of care was discussed with the attending physician and resident physician. Disclaimer: Despite multiple revisions, due to the dictation software being used, the document bellow may not be free of grammatical errors including phonetic/typographic errors. However, this does not deter from our commitment to providing health care in the patient's best interest in mind. Dr. Jaquan MD, PGY 2 Documentation for date of: 09/11/24 Subjective Subjective Interval history: Resumed home Ativan 1 mg twice daily as needed for anxiety. Patient had another episode of headache last night was given Benadryl and Toradol with relief. Notes that she is doing significantly better and does feel that these headaches could be secondary to her anxiety, will hopefully improve with resumption of home Ativan. Exam Vital Signs Temp Pulse Resp BP Pulse Ox O2 Del Method 97.9 F 86 18 145/70 H 98 Room Air 09/11/24 12:00 09/11/24 12:00 09/11/24 12:09/11/24 12:00 09/11/24 12:09/11/24 04:00 Narrative Exam Constitutional: Resting comfortably in bed, not in any acute distress Head: Normocephalic, well-healed abrasion to the left upper forehead Eyes: no conjunctival injection , symmetrical lids. ENMT: Moist Mucous Membranes Neck: C-collar in place CVS: RRR, S1 and S2 present, no murmurs, rubs or gallops . RESP: no increased work of breathing Skin: Warm to touch, Dry. Neuro: Moves all limbs spontaneously Psych: (AAO) x3 Objective Labs 09/11/24 05:15 09/11/24 13:52 Labs: Laboratory Results - last 24 hr 09/11/24 09/11/24 05:15 13:52 WBC 6.6 RBC 4.30 Hgb 10.8 L Hct 33.3 L MCV 77 L MCH 25.1 MCHC 32.4 RDW Std Deviation 47.0 H Plt Count 323 Neut % (Auto) 48 Lymph % (Auto) 29 [place] % (Auto) 17 H Eos % (Auto) 5 Baso % (Auto) 1 Neut # (Auto) 3.2 Lymph # (Auto) 1.9 [place] # (Auto) 1.1 H Eos # (Auto) 0.4 Baso # (Auto) 0.0 Immature Gran # (Auto) 0.04 H Absolute Nucleated RBC 0.00 Immature Gran % 1 H Nucleated RBC % 0 Sodium 124 L 125 L Potassium 4.1 D Chloride 92 L Carbon Dioxide 23.2 Anion Gap 9 BUN 25 H Creatinine 0.8 Estim Creat Clear Calc 65.6 eGFR > 60 BUN/Creatinine Ratio 31 H Glucose 102 Calculated Osmolality 254 L Calcium 9.2 Phosphorus 4.8 Magnesium 2.2 Quality Measures Quality Measures VTE prophylaxis Assessment & Plan Assessment Current Active Medications: Generic Name Dose Route Start Last Admin Trade Name Freq PRN Reason Stop Dose Admin Acetaminophen 650 mg 09/09/24 22:59 Acetaminophen 325 Mg Tablet PO 10/09/24 22:49 Q6H PRN Fever >100.4 or Pain 1-3 Hydrocodone Bitart/Acetaminophen 1 tab 09/09/24 22:53 09/11/24 14:50 Hydrocodone/Apap 5/325 Tablet PO 09/14/24 22:52 1 tab Q6HR PRN Administration PAIN SCALE 4-10(Mod-Sev Atorvastatin Calcium 40 mg 09/10/24 21:00 09/10/24 21:24 Atorvastatin Calcium 20 Mg Tablet PO 10/10/24 20:59 40 mg HS SONNY Administration Duloxetine HCl 60 mg 09/10/24 09:00 09/11/24 09:44 Duloxetine Hcl 30 Mg Capsule PO 10/10/24 08:59 60 mg BID SONNY Administration Enoxaparin Sodium 40 mg 09/10/24 09:00 09/11/24 09:45 Enoxaparin Sod Inj 40 Mg/0.4 Ml Syringe SC 09/24/24 08:59 40 mg QDAY SONNY Administration Hydroxyzine HCl 25 mg 09/10/24 03:28 09/11/24 00:42 Hydroxyzine Hcl 25 Mg Tablet PO 10/10/24 05:59 25 mg QID PRN Administration ANXIETY Protocol Levothyroxine Sodium 50 mcg 09/10/24 06:00 09/11/24 05:22 Levothyroxine Sodium 25 Mcg Tablet PO 10/10/24 05:59 50 mcg ACBR SONNY Administration Lidocaine 1 patch 09/10/24 08:31 Lidocaine 5% 1 Patch TOP 10/10/24 03:23 QDAY PRN PAIN Protocol Lorazepam 1 mg 09/11/24 11:02 09/11/24 14:50 Lorazepam 0.5 Mg Tablet PO 09/16/24 11:14 1 mg BID PRN Administration ANXIETY Protocol Metoprolol Succinate 25 mg 09/10/24 09:00 09/11/24 09:44 Metoprolol Succinate Xl 25 Mg Tabcr PO 10/10/24 08:59 25 mg QDAY SONNY Administration Morphine Sulfate 1 mg 09/10/24 01:14 09/11/24 09:45 Morphine Sulf Inj 10 Mg/Ml Vial IVP 09/15/24 01:13 1 mg Q8H PRN Administration BREAKTHROUGH PAIN (SEVERE) Ondansetron HCl 4 mg 09/09/24 22:50 Ondansetron Inj 2 Mg/Ml Inj 2 Ml IV 10/09/24 22:49 Q6H PRN NAUSEA OR VOMITING Protocol Pantoprazole Sodium 40 mg 09/10/24 09:00 09/11/24 09:44 Pantoprazole 40 Mg Tablet PO 10/10/24 08:59 40 mg QDAY SONNY Administration Polyethylene Glycol 17 gm 09/10/24 09:00 09/10/24 08:21 Polyethylene Glycol 17 Gm Packet PO 10/10/24 08:59 Not Given QDAY SONNY Sennosides 1 tab 09/10/24 03:15 Senna Tablet PO 10/10/24 03:14 QDAY PRN CONSTIPATION Protocol Sodium Chloride 1 gm 09/11/24 14:00 09/11/24 14:53 Sodium Chloride 1 Gm Tablet PO 10/11/24 13:59 1 gm TID SONNY Administration Plan 64-year-old female with past medical history of hypertension, hypothyroidism, polysubstance abuse, depression, anxiety, and panic disorder who is now being transferred here to [facility] from [facility] s/p neurosurgical C1-C2 fusion, now pending physical therapy and possible acute rehab recommendations. #C1 cervical fracture, odontoid fracture s/p C1-C2 arthrodesis Patient underwent C1-C2 fusion, instrumentation, pedicle screw fixation, and bone allograft on 09/04/[address] Lee Grant, [facility] Neurosurgeon. Patient was transferred to [facility] on 09/09/2023, PT/OT recommended acute rehab placement. -Recommended by Neurosurgery to keep [place] collar on while awake for 4 weeks post-op, until 10/03/2024. -Order [place] collar for patient for use during shower -Physical therapy daily -Pending acute rehab placement -Pain control: acetaminophen 650 mg q6h as needed for mild pain, [place] 5-325 mg q6h as needed for moderate to severe pain, morphine 1 mg q8h for breakthrough pain -Discharge instructions as follows (written in discharge chart) -Plan for 2-week staple removal appointment with Neurosurgery on 09/21/2024 -Plan for 4-week follow up with Dr. Turner with updated cervical spine XR brought to appointment on 10/02/2024 -Please call for appointments: [phone] [place] [address] #Nondisplaced right 10th rib fracture #Nondisplaced left 5th rib fracture CT chest/abdomen/pelvis on 09/02/2024 revealed nondisplaced rib fractures which have been managed conservatively. -Incentive spirometry 10 times per hour while awake -Lidocaine patch as needed -Encourage ambulation -Physical therapy #Euvolemic hypoosmolar hyponatremia Patient has a history of hyponatremia noted to be chronic since 2018. 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 Patient states she drinks 5-6 large canisters of water per day. Patient states uses an electrolyte mix for replacement at home. Sodium consistently low with low osmolality. Urine sodium from 07/2024 was <15. At [facility], she was started on salt tablets. -Continued NaCl tabs at 1g BID, added on an extra tablet today due to persistently low sodium -Limit water intake to 1500 ml per day -Monitor BMP #History of hypertension Patient history. Patient takes irbesartan, metoprolol. -Continue home metoprolol XL 25 mg qday ?Substituting irbesartan with amlodipine 10 mg daily (due to irbesartan sodium lowering effects) #History of hyperlipidemia Patient history, takes simvastatin. -Continue atorvastatin 40 mg HS #History of hypothyroidism Patient history. Last TSH 3.66 07/2024. -Continue home levothyroxine 50 mcg qday #History of anxiety #History of depression #History of panic disorder Patient history, takes hydroxyzine and duloxetine at home. -Continue home hydroxyzine 25 mg QID prn anxiety -Continue home duloxetine 60 mg BID ?Continued home lorazepam 1 mg twice daily, as needed #History of polysubstance abuse At the time of ED evaluation on 09/02, patient's EtOH level was 52.3 and she endorsed drinking prior to mechanical fall. Prior Utox have been positive for marijuana which patient endorses. Patient states willing to cut back on alcohol but not sure if she can for marijuana. -Counseled on reduction of alcohol and marijuana use DVT prophylaxis: Lovenox 40 mg subQ GI prophylaxis: Pantoprazole 40 mg PO qday Diet: Regular Santoyo: None Lines: Peripheral IV Antibiotics: None CODE STATUS: FULL Reason for hospitalization: s/p C1-C2 fusion pending possible acute rehab placement Patient plan of care was discussed with the attending physician, Dr. Husain. Celestino Marshall, PGY1 Attending Provider Attestation/Addendum I attest that I was physically present for the evaluation, physical examination, lab and imaging review of the patient with the residents. I discussed the case with the residents and agree with the findings and plans of care as documented above. At bedside today, patient appears more comfortable compared to yesterday. Continues to complain of headache and neck pain. Physical therapy recommended continuation of physical therapy at SNF. Patient's sodium level decreased to 124, added 1 more dose of salt tablet. Repeat level slightly improved but still at 125. We will continue with the salt tablets and recheck her level tomorrow, if better we will plan for discharge. Santi Husain MD
[2024-09-11] MEDS: ATORVASTATIN CALCIUM 20 MG TABLET 40 MG PO (20:10)
[2024-09-12] VITALS: BP 137/62; PULSE 79; RESP 19; TEMP 36.4; O2SAT 98
[2024-09-12 04:00] VITALS: BP 148/76; PULSE 60; RESP 17; TEMP 36.2; O2SAT 100
[2024-09-12] MEDS: MORPHINE SULF INJ 10 MG/ML VIAL IVP ×2 (04:24→13:04)
[2024-09-12 05:23] LABS: Basophils % (Auto) 1 % (0-2.5); Eosinophils # (Auto) 0.3 Thou/mm3 (0.0-0.5); Eosinophils % (Auto) 4 % (0-10); Hematocrit 35.4 % (36.0-46.0); Hemoglobin 11.6 g/dL (12.0-16.0); Immature Granulocytes % (Auto) 1 % (0-0); Immature Granulocytes Auto 0.04 Thou/mm3 (0.00-0.00); Lymphocytes # (Auto) 1.4 Thou/mm3 (1.0-4.8); Lymphocytes % (Auto) 23 % (10-50); Mean Corpuscular HGB Conc 32.8 g/dl (31.0-37.0); Mean Corpuscular Hemoglobin 25.3 pg (25.0-35.0); Mean Corpuscular Volume 77 fL (80-100); Monocytes # (Auto) 0.8 Thou/mm3 (0.0-0.8); Monocytes % (Auto) 13 % (0-12); Neutrophils # (Auto) 3.7 Thou/mm3 (1.8-7.7); Neutrophils % (Auto) 59 % (37-80); Nucleated Red Blood Cell % 0 /100 WBC (0); Platelet Count 321 Thou/mm3 (140-440); Red Blood Count 4.59 Miln/mm3 (4.00-5.20); White Blood Count 6.2 Thou/mm3 (3.6-11.0)
[2024-09-12 05:38] LABS: Partial Thromboplastin Time 23.7 Seconds (22.0-36.0); Prothrombin Time 10.7 Seconds (9.0-12.2)
[2024-09-12] MEDS: SODIUM CHLORIDE 1 GM TABLET PO ×2 (05:45→14:21)
[2024-09-12] MEDS: LEVOTHYROXINE SODIUM 25 MCG TABLET 50 MCG PO (05:45)
[2024-09-12 05:49] LABS: Anion Gap 8 (7-16); BUN/Creatinine Ratio 30 Ratio (12-20); Blood Urea Nitrogen 21 mg/dL (9-23); Calcium 9.7 mg/dL (8.3-10.6); Carbon Dioxide 25.2 mMol/L (20.0-31.0); Chloride 94 mMol/L (98-107); Creatinine (Component) 0.7 mg/dL (0.6-1.3); Glucose 103 mg/dL (74-106); Magnesium 1.8 mg/dL (1.6-2.6); Osmolality,Calculated 258 (275-295); Phosphorous 4.7 mg/dL (2.4-5.1); Potassium 4.6 mMol/L (3.4-5.1); Sodium 127 mMol/L (136-145); eGFR > 60 See Note
[2024-09-12 08:00] VITALS: BP 160/82; PULSE 86; RESP 17; TEMP 36.7; O2SAT 98
[2024-09-12] MEDS: PANTOPRAZOLE 40 MG TABLET PO (09:24)
[2024-09-12] MEDS: HYDROcodone/APAP 5/325 TABLET 1 TAB PO ×2 (09:24→16:32)
[2024-09-12 09:25] VITALS: BP 157/79; PULSE 86
[2024-09-12] MEDS: DULoxetine HCL 30 MG CAPSULE 60 MG PO (09:25)
[2024-09-12] MEDS: METOPROLOL SUCCINATE XL 25 MG TABCR PO (09:25)
[2024-09-12] MEDS: ENOXAPARIN SOD INJ 40 MG/0.4 ML SYRINGE SC (09:26)
[2024-09-12] MEDS: LORazepam 0.5 MG TABLET 1 MG PO ×2 (09:26→18:39)
--- NOTE | 2024-09-12 09:43 | PC.SS ---
SS follow up: Rebeca at [facility] informs she submitted for authorization for SNF yesterday evening. Authorization is pending at this time.
[2024-09-12 12:00] VITALS: BP 148/83; PULSE 75; RESP 17; TEMP 36.1; O2SAT 98
[2024-09-12] MEDS: ONDANSETRON INJ 2 MG/ML INJ 2 ML 4 MG IV (13:04)
--- NOTE | 2024-09-12 14:47 | PC.SS ---
SS update: authorization was obtained for patient to d/c to SNF. Patient is going to [facility]. eRbeca at [facility] is ready to accept the patient. Patient's daughter Lulu is agreeable with d/c plan. Provided her with SNF contact info/address. Patient's transport arranged via [employer] reference number: [id number]. ETA provided is 5pm. Bed side nurse Walt and Rebeca at [facility] informed of ETA.
[2024-09-12 16:00] VITALS: BP 148/90; PULSE 78; RESP 16; TEMP 36.2; O2SAT 96
--- NOTE | 2024-09-12 17:41 | ESDS_ITS ---
<Statement entered by Donnie Partida MD - 09/12/24 18:45> I saw and examined the patient, and I agree with current management stated by Dr Rolando MD,PGY1. Plan of care was discussed with the attending physician and resident physician. Disclaimer: Despite multiple revisions, due to the dictation software being used, the document bellow may not be free of grammatical errors including phonetic/typographic errors. However, this does not deter from our commitment to providing health care in the patient's best interest in mind. Dr. Jaquan MD, PGY 2 Planned Discharge Date 09/12/24 DS: Providers Provider Date of admission: 09/09/24 21:04 Primary care physician: Physician No Primary/Family Admitting Provider: Mike Skinner MD Attending Provider on Admission: Mike Skinner MD Consults: 09/09/24 21:40 Referral Physical Therapy Routine Comment: Physician Instructions: 09/09/24 22:55 Referral Discharge Planning Stat Comment: For placement into acute rehab Attending Provider on DC: Wil Muller MD Discharging Provider: Celestino Marshall DO DS: Diagnosis Problem List Completed Was Problem List Reviewed/Reconciled?: Yes Hospital Course Hospital Course Hospital course: Discharge summary: Patient is a 64-year-old female with past medical history of hypertension, hypothyroidism, polysubstance abuse, depression, anxiety, and panic disorder who is now being transferred here from [facility] s/p neurosurgical C1-C2 fusion and instrumentation by Dr. Turner on 09/04/2024. On 09/02/2023, patient presented to [facility] ED after a ground-level mechanical fall with hit to head and was diagnosed with C1 anterior ring fracture and type II odontoid fracture and transferred out to [facility] for neurosurgical evaluation. Patient also has right 10th rib and left 5th rib fractures. Did well post operatively without complications. No neuro deficits. Came back to [facility] pending SNF rehab. Patient discharged after a few days when she was accepted to rehab facility. Discharge instructions: -Reduce alcohol intake -Limit water intake to 1500 ml per day -Plan for 2-week staple removal appointment with Neurosurgery on 09/21/2024 -Plan for 4-week follow up with Dr. Turner Neurosurgery on 10/02/2024 -Please schedule the cervical spine XR and bring images to the 4-week follow up -Please call for appointments: [phone] [place] [address] Per Neurosurgery/Trauma discharge instructions: Wound Care and Showering You may shower daily. Avoid touching your incision as much as possible. Do not put any medications or other skin products on your incision unless instructed to do so. Do not submerge your incision in water (swimming, baths, etc.) for four weeks after surgery. Cervical Collar Maintain [place] cervical collar when awake. OK to take off while sleeping. Wear when up out of bed during the night. -OK to switch to [place] collar when showering -No repetitive upper extremity movements (sweeping, vacuuming, etc.) Incentive Spirometer It is very important that you continue to use your incentive spirometer. Continue using your incentive spirometer as instructed, 10 times every hour while awake. This will continue to expand lung volumes and decrease the likelihood of you getting pneumonia. It can take 4-6 weeks up to 6 months for the pain experienced with rib fractures to completely resolve. Return Precautions Please call the office or go to the emergency room if any of the following occur: New onset or worsening- -Pain (not relieved with medication and rest) -Progressive difficulty swallowing and breathing -Weakness, numbness, or tingling -Bowel or bladder dysfunction -Wound concerns or signs of infection -Increasing swelling, excessive redness, or drainage -Fever greater than 101.5 degrees Discharge diagnosis: #C1 cervical fracture, odontoid fracture s/p C1-C2 arthrodesis #Nondisplaced right 10th rib fracture #Nondisplaced left 5th rib fracture #Euvolemic hypoosmolar hyponatremia #History of hypertension #History of hyperlipidemia #History of hypothyroidism #History of anxiety #History of depression #History of panic disorder #History of polysubstance abuse Patient was evaluated with my attending Dr. Muller, Celestino Marshall, , PGY1 Time Spent with Patient Time attestation: Total time spent providing and/or coordinating discharge services: Exam Vital Signs Temp Pulse Resp BP Pulse Ox O2 Del Method 97.1 F 78 16 148/90 H 96 Room Air 09/12/24 16:00 09/12/24 16:00 09/12/24 16:00 09/12/24 16:00 09/12/24 16:00 09/12/24 16:00 Narrative Exam Constitutional: Resting comfortably in bed, not in any acute distress Head: Normocephalic, well-healed abrasion to the left upper forehead Eyes: no conjunctival injection , symmetrical lids. ENMT: Moist Mucous Membranes Neck: C-collar in place CVS: RRR, S1 and S2 present, no murmurs, rubs or gallops . RESP: no increased work of breathing Skin: Warm to touch, Dry. Neuro: Moves all limbs spontaneously Psych: (AAO) x3 Discharge Plan Plan Patient Disposition: Xfer Skilled Nsg Fac (SNF) Care Plan Goals: Discharge Instructions -Reduce alcohol intake -Limit water intake to 1500 ml per day -Plan for 2-week staple removal appointment with Neurosurgery on 09/21/2024 -Plan for 4-week follow up with Dr. Turner Neurosurgery on 10/02/2024 -Please schedule the cervical spine XR and bring images to the 4-week follow up -Please call for appointments: [phone] [place] [address] Per Neurosurgery/Trauma discharge instructions: Wound Care and Showering You may shower daily. Avoid touching your incision as much as possible. Do not put any medications or other skin products on your incision unless instructed to do so. Do not submerge your incision in water (swimming, baths, etc.) for four weeks after surgery. Cervical Collar Maintain [place] cervical collar when awake. OK to take off while sleeping. Wear when up out of bed during the night. -OK to switch to [place] collar when showering -No repetitive upper extremity movements (sweeping, vacuuming, etc.) Incentive Spirometer It is very important that you continue to use your incentive spirometer. Co ntinue using your incentive spirometer as instructed, 10 times every hour while awake. This will continue to expand lung volumes and decrease the likelihood of you getting pneumonia. It can take 4-6 weeks up to 6 months for the pain experienced with rib fractures to completely resolve. Return Precautions Please call the office or go to the emergency room if any of the following occur: New onset or worsening- -Pain (not relieved with medication and rest) -Progressive difficulty swallowing and breathing -Weakness, numbness, or tingling -Bowel or bladder dysfunction -Wound concerns or signs of infection -Increasing swelling, excessive redness, or drainage -Fever greater than 101.5 degrees Prescriptions/Referrals Prescriptions/Med Rec: New sodium chloride 1,000 mg Tablet,Soluble 1,000 mg PO BID Qty: 30 0RF polyethylene glycol 3350 17 gram/dose powder 17 g PO QDAY Qty: 119 0RF pantoprazole 40 mg Tablet,Delayed Release (Dr/Ec) 40 mg PO QDAY 14 Days Qty: 14 0RF atorvastatin 40 mg tablet 40 mg PO HS 30 Days Qty: 30 0RF Continued celecoxib 100 mg capsule 100 mg PO BID PRN (Reason: pain) Qty: 20 0RF lidocaine [AsperFlex (lidocaine)] 4 % adhesive patch,medicated 1 patch topical QDAY PRN (Reason: pain) Qty: 30 0RF levothyroxine [Synthroid] 50 mcg Tablet 50 mcg PO QDAY Qty: 0 docusate sodium 100 mg capsule 1 cap PO QDAY PRN (Reason: Constipation) Patient Comments: TAKE ONE CAPSULE BY MOUTH ONCE DAILY NEEDED FOR CONSTIPATION metoprolol succinate 25 mg tablet extended release 24 hr 1 tab PO QDAY Patient Comments: TAKE ONE CAPSULE BY MOUTH EVERY DAY duloxetine 60 mg capsule,delayed release(DR/EC) 2 cap PO QDAY Patient Comments: TAKE ONE CAPSULE BY MOUTH EVERY DAY hydrocodone-acetaminophen 10-325 mg tablet 1 tab PO Q6H PRN (Reason: pain) Patient Comments: TAKE ONE TABLET BY MOUTH FOUR TIMES DAILY NEEDED FOR PAIN Rx Instructions: TAKE ONE TABLET BY MOUTH FOUR TIMES DAILY NEEDED FOR PAIN lorazepam 1 mg tablet 1 mg PO Q12H PRN (Reason: anxiety) Patient Comments: TAKE ONE TABLET BY MOUTH TWICE DAILY NEEDED FOR ANXIETY Rx Instructions: TAKE ONE TABLET BY MOUTH TWICE DAILY NEEDED FOR ANXIETY ondansetron HCl 4 mg tablet 4 mg PO Q8H PRN (Reason: Nausea) Patient Comments: TAKE ONE TABLET BY MOUTH EVERY 8 HOURS NEEDED FOR NAUSEA AND VOMITING irbesartan 75 mg tablet 75 mg PO QDAY cholecalciferol (vitamin D3) 125 mcg (5,000 unit) capsule 125 mcg PO QDAY Patient Comments: TAKE ONE CAPSULE BY MOUTH EVERY DAY VITAMIN ferrous sulfate 324 mg (65 mg iron) tablet,delayed release (DR/EC) 324 mg PO Q OTHER DAY 30 Days Qty: 15 1RF Referrals: No Primary/Family,Physician [Primary Care Provider] - Patient/Caregiver Discharge Instructions Education Materials: Medicine for Pain, ED Back Pain (Acute or Chronic), ED Back and Neck Pain, General Print Language: Nepali Stand Alone Forms: Mary Beth Award Info., Patient Portal Info Letter Discharge Order Discharge Orders: Discharge (Routine); Ordered 09/12/24 Ordered By: Donnie Partida Quality Discharge Quality Measures VTE prophylaxis
--- NOTE | 2024-09-12 18:29 | PC.NURSE ---
notified md dr. mcdonald of patient complaining of pain 05/22. md notified that patient prn have been used and are not due yet and patient is requesting further medication. [email or web address] .orders recieved
[2024-09-12] MEDS: HYDROmorphone INJ 2 MG/ML VIAL 0.25 MG IVP (18:39)
== END 2024-09-12 19:28 | disposition skilled nursing facility (03) | DRG 347 ==
PROVIDERS: Student in an Organized Health Care Education/Training Program; Admitting Provider Student in an Organized Health Care Education/Training Program; Visit Provider Student in an Organized Health Care Education/Training Program
DX: S12.110A Anterior displaced Type II dens fracture, initial encounter for closed fracture (principal); S22.43XA Multiple fractures of ribs, bilateral, initial encounter for closed fracture; F41.0 Panic disorder [episodic paroxysmal anxiety]; F32.A Depression, unspecified; I10 Essential (primary) hypertension; E03.9 Hypothyroidism, unspecified; E87.1 Hypo-osmolality and hyponatremia; E78.5 Hyperlipidemia, unspecified; F10.10 Alcohol abuse, uncomplicated; F12.10 Cannabis abuse, uncomplicated; R51.9 Headache, unspecified; Z98.1 Arthrodesis status; Z79.899 Other long term (current) drug therapy; Z79.890 Hormone replacement therapy; W19.XXXA Unspecified fall, initial encounter; Z75.1 Person awaiting admission to adequate facility elsewhere
CPT/HCPCS: 36415; 80048; 82803; 83735; 84100; 84295; 85025; 85610; 85730; 87081; 93225; 97162; J1200; J1650; J1885; J2270; J2405; J2765; J3475; J3490; A9270

== ENCOUNTER 2024-10-03 13:34 | Outpatient (AMB) | payer MEDICAID, SELFPAY ==
--- NOTE | 2024-10-03 16:08 | ACNOTE_ITS ---
Vital Signs 10/08/24 08:39 BP 132/73 H Blood Pressure Source Automatic Cuff Blood Pressure Location Left Upper Arm Position Sitting Respiration 16 Pulse 84 Pulse Source Monitor Temp 97.8 F Temp Source Temporal Artery Scan Pulse Oximetry (%) 98 Oxygen Delivery Method Room Air Allergies/Meds Allergies & Medications Allergies adhesive Allergy (Severe, Verified 10/08/24 08:40) HIVES doxycycline Allergy (Severe, Verified 10/08/24 08:40) HIVES Penicillins Allergy (Severe, Verified 10/08/24 08:40) Hives Medication Reconciliation levothyroxine 50 mcg tablet (Synthroid) 50 mcg PO QDAY THYROID #0 tabs 12/02/14 [History Confirmed 09/10/24] docusate sodium 100 mg capsule 1 cap PO QDAY PRN Constipation 04/03/22 [History Confirmed 09/10/24] duloxetine 60 mg capsule,delayed release 2 cap PO QDAY 04/03/22 [History Confirmed 09/10/24] metoprolol succinate 25 mg tablet,extended release 24 hr 1 tab PO QDAY 04/03/22 [History Confirmed 09/10/24] cholecalciferol (vitamin D3) 125 mcg (5,000 unit) capsule 125 mcg PO QDAY 08/05/24 [History Confirmed 09/10/24] irbesartan 75 mg tablet 75 mg PO QDAY 08/05/24 [History Confirmed 09/10/24] ondansetron HCl 4 mg tablet 4 mg PO Q8H PRN Nausea 08/05/24 [History Confirmed 09/10/24] ferrous sulfate 324 mg (65 mg iron) tablet,delayed release 324 mg PO Q OTHER DAY 1 month #15 tabs 08/09/24 [Rx Confirmed 08/22/24] lidocaine 4 % topical patch (AsperFlex (lidocaine)) 1 patch topical QDAY PRN pain #30 ea 08/22/24 [Rx Confirmed 09/10/24] atorvastatin 40 mg tablet 40 mg PO HS 30 days #30 tabs 09/10/24 [Rx] hydrocodone 10 mg-acetaminophen 325 mg tablet 1 tab PO Q6H PRN pain 09/10/24 [History Confirmed 09/10/24] lorazepam 1 mg tablet 1 mg PO Q12H PRN anxiety 09/10/24 [History Confirmed 09/10/24] polyethylene glycol 3350 17 gram/dose oral powder 17 g PO QDAY #119 grams 09/10/24 [Rx] sodium chloride 1,000 mg soluble tablet 1,000 mg PO BID #30 tabs 09/10/24 [Rx] celecoxib 100 mg capsule 100 mg PO BID PRN pain #20 caps 10/03/24 [Rx Confirmed 10/08/24] duloxetine 60 mg capsule,delayed release 60 mg PO BID #60 caps 10/03/24 [Rx Confirmed 10/08/24] lidocaine 5 % topical patch 1 patch topical QDAY 1 month #30 ea 10/03/24 [Rx Confirmed 10/08/24] meclizine 12.5 mg tablet 12.5 mg PO TID PRN dizziness or vertigo #15 tabs 10/03/24 [Rx Confirmed 10/08/24] tramadol 37.5 mg-acetaminophen 325 mg tablet 1 tab PO Q12H PRN pain 7 days #14 tabs 10/03/24 [Rx Confirmed 10/08/24] white petrolatum 61 % topical cream ([place] Moisture Barrier Cr) 1 applic topical DAILY #99 grams 10/03/24 [Rx Confirmed 10/08/24] zolpidem 5 mg tablet 5 mg PO QHS insomnia 1 month #30 tabs 10/03/24 [Rx Confirmed 10/08/24] MA Intake Visit Data Collection New Patient or Established: Established Patient (seen at [facility] within 3 years) Seen by Clinical Staff ONLY (RN/YANG): No Pain Present Currently: No Pain scale:: 0 Pain Scale Used: Mehta-Bassett/Numerical Superintendent Of Generation Required: No PCP or OBGYN visit in last 3 months: No Hx Now: No Do You Feel Safe at Home: Yes Authorities Contacted: N/A Smoking Status Smoking Status: Never smoker Immunization / Flu Flu Vaccine in the Last 12 Months: Yes Flu Vaccine Exclusion Criteria: Already Received Past Medical History Past Medical History NEUROLOGIC: Negative Neurological Disorders CARDIAC: Positive Cardiac Disorders and Hypertension; Negative Cardiac Arrhythmia, Atrial Fibrillation, Angina, Atherosclerotic Heart Disease, Aneurysm or Congestive Heart Failure RESPIRATORY: Negative Chronic Obstructive Pulmonary Disease (COPD) or Asthma GASTROINTESTINAL: Positive Gastrointestinal Disorders and Gastroesophageal Reflux Disease; Negative Celiac Disease or Kaiser's Esophagus GENITOURINARY: Negative Genitourinary Disorders or Renal Disease REPRODUCTIVE: Negative Pelvic Inflammatory Disease MUSCULOSKELETAL: Positive Arthritis, Fibromyalgia and Fractures ENT: Positive Cataracts; Negative Glaucoma, Blind, Retinal Detachment, Macular Degeneration, Ear Infection, Deafness or Eye Prosthesis ENDOCRINE: Negative Endocrine Disorders, Diabetes Mellitus Type 1, Diabetes Mellitus Type 2, [place]'s Disease or Adrenal Disease HEMATOLOGIC: Negative Blood Disorders or Sickle Cell Disease PSYCHO/SOCIAL: Positive Depression and Anxiety OTHER HISTORY: Positive MRSA; Negative Autoimmune Disease, Shingles, Anesthesia Reactions, Organ Transplant, Vancomycin-Resistant Enterococci, Clostridium Difficile or Cancer Family History FAMILY HISTORY: Positive Family Surgery; Negative Family Respiratory Disorders, Family Cardiac Disorders, Family Gastrointestinal Problems, Family Cancer or Family Anesthesia Reaction Surgical History SURGICAL: Negative Organ Transplant Social History SMOKING STATUS: Smoking status: Never smoker ALCOHOL: Alcohol Intake: Current ALCOHOL FREQUENCY: Alcohol Intake Frequency: 3 or More Drinks per Day HOUSING: Housing: LIVES WITH: Lives With: Alone Patient Portal [place] Social History Living Situation History Housing: RV Tobacco History Smoking Status: Never smoker Alcohol History Alcohol Intake: Current Alcohol Intake Frequency: 3 or More Drinks per Day Domestic Abuse History Do You Feel Safe at Home: Yes Review of Systems Report any current symptoms Only answer those that you have currently: Past Medical History Past Medical History Have you ever been diagnosed with any of the following: Cardiology Problems Cardiac Arrhythmia: No Atrial Fibrillation: No Angina: No Atherosclerotic Heart Disease: No Aneurysm: No Congestive Heart Failure: No Hypertension: Yes Respiratory Problems Chronic Obstructive Pulmonary Disease (COPD): No Asthma: No Stomache/Intestinal Problems Celiac Disease: No Kaiser's Esophagus: No Gastroesophageal Reflux Disease: Yes Genital/Urinary Problems Renal Disease: No Reproductive Problems Pelvic Inflammatory Disease: No Musculoskeletal Problems Arthritis: Yes Fibromyalgia: Yes Fractures: Yes Head,Eye,Nose,Throat Problems Cataracts: Yes Glaucoma: No Blind: No Retinal Detachment: No Macular Degeneration: No Chronic Ear Infections: No Deafness: No Eye Prosthesis: No Endocrine Problems Diabetes Mellitus Type 1: No Diabetes Mellitus Type 2: No Leonides's Disease: No Adrenal Disease: No Blood Problems Sickle Cell Disease: No Psychologic Problems Depression: Yes Anxiety: Yes Other Problems Autoimmune Disease: No Shingles: No Anesthesia Reactions: No Organ Transplant: No MRSA: Yes Vancomycin-Resistant Enterococci: No Clostridium Difficile: No Cancer: No History of Present Illness HPI Narrative Patient is a 64-year-old female with a past medical history of hypertension, hypothyroidism, opiate dependence, chronic pain disorder and anxiety disorder whpo was recently hospitalized at [facility] in Jul 2024 for AHRF 2/2 RT pleural effusion. Labs at that [facility] showed WBC 8.3 Hgb 7.6 with low MCV , JUAN ANTONIO : CR 1.4 EGFR 43 and BNP 1223. Chest x-ray showed pulmonary vascular congestion and CT showed significant pneumonia in the right base, and RT pleural effusion present.. Echo showed dilated LV, but no wall motion abnormalities, LVEF 55- 60%. Chest/abdomen/pelvis CT showed Mild CHF. Significant pneumonia right base and possible acute acalculous cholecystitis. Gallbladder ultrasound also showed acute acalculous cholecystitis. Followed up with [facility] which was negative. Patient received 1 unit of PRBC transfusion in view of anemia. FOBT was negative for blood. Sent home on 325mg qOther Day ferrous sulfat, hydroxyzine 25 Mg twice daily as needed, zolpidem 5mg p.o. HS. 08/22/2024: Patient presented for a clinic visit to establish post discharge primary care. She has symptomatically improved significantly. She complains of mild congestion, and flulike symptoms for the last 2 days, she requests a decongestant for the same. Patient also has left knee swelling and pain, and inability to bear weight. Patient was advised to bring her old records from her previous place of primary care in order to evaluate need for further imaging and testing. Ordered 10 capsules of celecoxib and topical diclofenac gel for knee pain, also ordered ciprofloxacin eardrops for right-sided earache and possible otitis externa. Follow-up visit scheduled for 4 weeks from now. 10/03/2024: Patient seen for a follow up visit. She was recently brought to the ED in Aug, 2024 after a ground level fall and found to have an acute fracture base of the odontoid, the odontoid tip displaced posteriorly 3 mm relative to the body of C2, fracture anterior ring of C1 with 5 mm separation at the fracture site and nondisplaced fracture right lamina C1. She was transferred to [facility] for neurosurgery intervention, and then transferred back postprocedure for postop care. Patient was discharged from [facility] medical to acute rehab. At this visit she has completed her rehab stay, is wearing a cervical brace and endorses improvement in neck pain and function. She does have some spasmodic pain in the right trapezius, and tenderness at the site of stitches posteriorly level C1-C2. As per neurosurgical recommendation patient is to wear a cervical brace for 4-6 weeks. We will continue all medications at this time including lorazepam, [place] and Cymbalta. Patient will be prescribed an emollient as she endorses itchiness and dryness at the site of stitches post removal, we will also give lidocaine 5% patch renew her Celebrex and give a 1 week course of Tramacet. She is scheduled for a appointment for a pain specialist on October 13, 2024 for chronic pain management. We will review pain medications after her appointment and tailor goal-directed medical therapy from there. Review of Systems Review of Systems Narrative Review of Systems: GENERAL: Denies fevers/chills, diaphoresis. Mild- moderate neck pain HEENT: Denies headache or visual/hearing changes. Denies nasal discharge. NEURO: Denies unusual weakness or difficulty speaking. CARDIO: Denies chest pain, palpitations. PULM: Denies SOB, cough, wheezing. GI: Denies abdominal pain, no N/V, no C/D. Reports having BMs URO: Denies burning/itching/pain/urinary changes. BRANCH COORDINATOR: Denies menstrual changes, hot flashes. MSK/EXT/SKIN: Dryness at site of stitches s/p removal. PSYCH: Cooperative, pleasant mood & affect. The rest of the review of systems is otherwise negative. Objective/Exam Narrative Physical exam: Constitutional Alert, oriented x3 and in mild discomfort HEENT Vision grossly intact. Patent nares. Trachea midline. Cervical collar in place Respiratory Chest normal on inspection and clear to auscultation bilaterally. Cardiovascular S1 and S2 audible, RRR. No murmurs or carotid bruit. No gross JVD. Abdominal Soft and non tender to palpation in all quadrants. BS + Genitourinary No bladder tenderness, no flank pain. Normal to palpation. Musculoskeletal Extremities tone within normal limits. No LE edema. Neurological CN II - XII grossly intact. Extremity motor and sensation grossly intact. Skin Pruritis, Dryness at site of stitches, C1-C2 post stitch removal Psychiatric Patient has a good affect, is cooperative. Assessment & Plan Diagnosis / Problem List (1) Cervical vertebral fracture: Status: Acute Qualifiers: Cervical vertebra fracture level: C1 Encounter type: initial encounter Fracture alignment: nondisplaced Fracture morphology: other fracture Fracture type: closed Qualified Code(s): S12.091A - Other nondisplaced fracture of first cervical vertebra, initial encounter for closed fracture Assessment & Plan: ED in Aug, 2024 after a ground level fall and found to have an acute fracture base of the odontoid, the odontoid tip displaced posteriorly 3 mm relative to the body of C2, fracture anterior ring of C1 with 5 mm separation at the fracture site and nondisplaced fracture right lamina C1. She was transferred to [facility] for neurosurgery intervention, and then transferred back postprocedure for postop care. Patient was discharged from [facility] medical to acute rehab. 10/03: At this visit she has completed her rehab stay, is wearing a cervical brace and endorses improvement in neck pain and function. She does have some spasmodic pain in the right trapezius, and tenderness at the site of stitches posteriorly level C1-C2. Plan: As per neurosurgical recommendation, continue to wear a cervical brace for 4-6 weeks. Moisture barrier cream ordered for skin dryness s/p retrieval of stitches Tramacet x 10 tabs for pain control Scheduled for a appointment with pain specialist on October 13, 2024 for chronic pain management. We will review pain medications after her appointment and tailor medical therapy from there. (2) Insomnia secondary to anxiety: Status: Acute Assessment & Plan: Improved since discharged on Ambien 5mg from hospital, sleep is much improved Pt feels more energetic during the day Plan: Continue Zolipdem 5mg HS Counseled on risk of amnesia, will take precautions (3) Chronic pain disorder: Status: Acute Assessment & Plan: chronic LT knee osteoarthritis chronic back pain New cervical neck pain s/p C1-C2 fracture Plan: Continue Celecoxib x1 month renewed Lidocaine patch 5% for neck pain ordered Duloxetine increased to 60mg AM and 120mg PM , x1 month (4) Vertigo: Status: Acute Assessment & Plan: Intermittent episodes of dizziness but denies loss of consciousness Plan: PRN meclizine 12.5mg TID Plan Follow up scheduled in 4 weeks Advised to call clinic for phone appt if needed Additional Assessment Cameron Kaplan MD Office Procedures [facility] Level of Care Nursing/Assessment Patient Status: Established Patient Nursing Assessment/Reassessment: Medication Reconciliation, Update PMH in EMR and Vital Signs Coordination of Care: Complex Care and Chronic Disease 1-5, Consent,records obtained, informed consent, Education Simp Pt/Fam, Lab and Imaging orders and Staff clarify orders Established Patient Charge Established Patient Point Assignment: 100 Established Patient Point Charge: EP Level 3 (80-115)
[2024-10-08 08:39] VITALS: BP 132/73; PULSE 84; RESP 16; TEMP 36.6; O2SAT 98
== END 2024-10-03 14:52 | disposition home or self-care (01) ==
LOC: HODAHC 13:34
PROVIDERS: Supervising Provider Internal Medicine; Visit Provider Student in an Organized Health Care Education/Training Program
DX: S12.091A Other nondisplaced fracture of first cervical vertebra, initial encounter for closed fracture (principal); W18.30XA Fall on same level, unspecified, initial encounter; F41.9 Anxiety disorder, unspecified; F51.05 Insomnia due to other mental disorder; R42 Dizziness and giddiness
CPT/HCPCS: 99213; G0463

== ENCOUNTER 2024-10-31 13:50 | Outpatient (AMB) | payer MEDICAID, SELFPAY ==
[2024-10-31 14:04] VITALS: BP 137/87; PULSE 78; RESP 16; TEMP 36.2; O2SAT 98; BMI 26.2
--- NOTE | 2024-10-31 14:04 | PD.RESCLINIC ---
Vital Signs 10/31/24 14:04 Height 1.6 m Height Method Stated Weight 67.132 kg Weight Measurement Method Standing Scale BMI 26.2 BP 137/87 H Blood Pressure Source Manual Cuff- Auscultation Blood Pressure Location Left Upper Arm Position Sitting Respiration 16 Pulse 78 Pulse Source Monitor Temp 97.1 F Temp Source Oral Pulse Oximetry (%) 98 Oxygen Delivery Method Room Air Allergies/Meds Allergies & Medications Allergies adhesive Allergy (Severe, Verified 10/31/24 14:05) HIVES doxycycline Allergy (Severe, Verified 10/31/24 14:05) HIVES Penicillins Allergy (Severe, Verified 10/31/24 14:05) Hives Medication Reconciliation levothyroxine 50 mcg tablet (Synthroid) 50 mcg PO QDAY THYROID #0 tabs 12/02/14 [History Confirmed 10/31/24] docusate sodium 100 mg capsule 1 cap PO QDAY PRN Constipation 04/03/22 [History Confirmed 10/31/24] duloxetine 60 mg capsule,delayed release 2 cap PO QDAY 04/03/22 [History Confirmed 10/31/24] metoprolol succinate 25 mg tablet,extended release 24 hr 1 tab PO QDAY 04/03/22 [History Confirmed 10/31/24] cholecalciferol (vitamin D3) 125 mcg (5,000 unit) capsule 125 mcg PO QDAY 08/05/24 [History Confirmed 10/31/24] irbesartan 75 mg tablet 75 mg PO QDAY 08/05/24 [History Confirmed 10/31/24] ondansetron HCl 4 mg tablet 4 mg PO Q8H PRN Nausea 08/05/24 [History Confirmed 10/31/24] ferrous sulfate 324 mg (65 mg iron) tablet,delayed release 324 mg PO Q OTHER DAY 1 month #15 tabs 08/09/24 [Rx Confirmed 10/31/24] lidocaine 4 % topical patch (AsperFlex (lidocaine)) 1 patch topical QDAY PRN pain #30 ea 08/22/24 [Rx Confirmed 10/31/24] hydrocodone 10 mg-acetaminophen 325 mg tablet 1 tab PO Q6H PRN pain 09/10/24 [History Confirmed 10/31/24] lorazepam 1 mg tablet 1 mg PO Q12H PRN anxiety 09/10/24 [History Confirmed 10/31/24] polyethylene glycol 3350 17 gram/dose oral powder 17 g PO QDAY #119 grams 09/10/24 [Rx Confirmed 10/31/24] sodium chloride 1,000 mg soluble tablet 1,000 mg PO BID #30 tabs 09/10/24 [Rx Confirmed 10/31/24] celecoxib 100 mg capsule 100 mg PO BID PRN pain #20 caps 10/03/24 [Rx Confirmed 10/31/24] duloxetine 60 mg capsule,delayed release 60 mg PO BID #60 caps 10/03/24 [Rx Confirmed 10/31/24] lidocaine 5 % topical patch 1 patch topical QDAY 1 month #30 ea 10/03/24 [Rx Confirmed 10/31/24] meclizine 12.5 mg tablet 12.5 mg PO TID PRN dizziness or vertigo #15 tabs 10/03/24 [Rx Confirmed 10/31/24] white petrolatum 61 % topical cream (Maximus Moisture Barrier Cr) 1 applic topical DAILY #99 grams 10/03/24 [Rx Confirmed 10/31/24] zolpidem 5 mg tablet 5 mg PO QHS insomnia 1 month #30 tabs 10/03/24 [Rx Confirmed 10/31/24] MA Intake Visit Data Collection New Patient or Established: Established Patient (seen at [facility] within 3 years) Seen by Clinical Staff ONLY (RN/YANG): No Pain Present Currently: No Pain scale:: 0 Pain Scale Used: Mehta-Bassett/Numerical Regulatory Affairs Spec Required: No PCP or OBGYN visit in last 3 months: Yes Date of Last PCP or OBGYN visit: 10/08/24 Hx Now: No Do You Feel Safe at Home: Yes Authorities Contacted: N/A Smoking Status Smoking Status: Never smoker Immunization / Flu Flu Vaccine in the Last 12 Months: Yes Flu Vaccine Exclusion Criteria: No Exclusion Criteria Past Medical History Past Medical History NEUROLOGIC: Negative Neurological Disorders CARDIAC: Positive Cardiac Disorders and Hypertension; Negative Cardiac Arrhythmia, Atrial Fibrillation, Angina, Atherosclerotic Heart Disease, Aneurysm or Congestive Heart Failure RESPIRATORY: Negative Chronic Obstructive Pulmonary Disease (COPD) or Asthma GASTROINTESTINAL: Positive Gastrointestinal Disorders and Gastroesophageal Reflux Disease; Negative Celiac Disease or Kaiser's Esophagus GENITOURINARY: Negative Genitourinary Disorders or Renal Disease REPRODUCTIVE: Negative Pelvic Inflammatory Disease MUSCULOSKELETAL: Positive Arthritis, Fibromyalgia and Fractures ENT: Positive Cataracts; Negative Glaucoma, Blind, Retinal Detachment, Macular Degeneration, Ear Infection, Deafness or Eye Prosthesis ENDOCRINE: Negative Endocrine Disorders, Diabetes Mellitus Type 1, Diabetes Mellitus Type 2, Lenoides's Disease or Adrenal Disease HEMATOLOGIC: Negative Blood Disorders or Sickle Cell Disease PSYCHO/SOCIAL: Positive Depression and Anxiety OTHER HISTORY: Positive MRSA; Negative Autoimmune Disease, Shingles, Anesthesia Reactions, Organ Transplant, Vancomycin-Resistant Enterococci, Clostridium Difficile or Cancer Family History FAMILY HISTORY: Positive Family Surgery; Negative Family Respiratory Disorders, Family Cardiac Disorders, Family Gastrointestinal Problems, Family Cancer or Family Anesthesia Reaction Surgical History SURGICAL: Negative Organ Transplant Social History SMOKING STATUS: Smoking status: Never smoker ALCOHOL: Alcohol Intake: Current ALCOHOL FREQUENCY: Alcohol Intake Frequency: 3 or More Drinks per Day HOUSING: Housing: LIVES WITH: Lives With: Alone Patient Portal Questionaires PHQ-9 PHQ-2 Over the last 2 weeks, how often have you been bothered by any of the following problems? 1. Little interest or pleasure in doing things: not at all 2. Feeling down, depressed, or hopeless: not at all Total score: 0 PHQ-9 3. Trouble falling or staying asleep, or sleeping too much: Not at all 4. Feeling tired or having little energy: Not at all 5. Poor appetite or overeating: Not at all 6. Feeling bad about yourself - or that you are a failure or have let yourself or your family down: Not at all 7. Trouble concentrating on things, such as reading the newspaper or watching television: Not at all 8. Moving or speaking so slowly that other people could have noticed? - Or the opposite - being so fidgety or restless that you have been moving around a lot more than usual: not at all 9. Thoughts that you would be better off or of hurting yourself in some way: Not at all Total score: 0 Source: Developed by Drs. Albin Glaser, Angela Michaels, Colt Noyola and colleagues, with an educational daiana from [facility]. Depression screen completed yes Social History Living Situation History Housing: RV Tobacco History Smoking Status: Never smoker Alcohol History Alcohol Intake: Current Alcohol Intake Frequency: 3 or More Drinks per Day Domestic Abuse History Do You Feel Safe at Home: Yes Review of Systems Report any current symptoms Only answer those that you have currently: Past Medical History Past Medical History Have you ever been diagnosed with any of the following: Cardiology Problems Cardiac Arrhythmia: No Atrial Fibrillation: No Angina: No Atherosclerotic Heart Disease: No Aneurysm: No Congestive Heart Failure: No Hypertension: Yes Respiratory Problems Chronic Obstructive Pulmonary Disease (COPD): No Asthma: No Stomache/Intestinal Problems Celiac Disease: No Kaiser's Esophagus: No Gastroesophageal Reflux Disease: Yes Genital/Urinary Problems Renal Disease: No Reproductive Problems Pelvic Inflammatory Disease: No Musculoskeletal Problems Arthritis: Yes Fibromyalgia: Yes Fractures: Yes Head,Eye,Nose,Throat Problems Cataracts: Yes Glaucoma: No Blind: No Retinal Detachment: No Macular Degeneration: No Chronic Ear Infections: No Deafness: No Eye Prosthesis: No Endocrine Problems Diabetes Mellitus Type 1: No Diabetes Mellitus Type 2: No Leonides's Disease: No Adrenal Disease: No Blood Problems Sickle Cell Disease: No Psychologic Problems Depression: Yes Anxiety: Yes Other Problems Autoimmune Disease: No Shingles: No Anesthesia Reactions: No Organ Transplant: No MRSA: Yes Vancomycin-Resistant Enterococci: No Clostridium Difficile: No Cancer: No Assessment & Plan Diagnosis / Problem List (1) Hyponatremia: Status: Acute Orders: Orders CBC Today D64.9 - Anemia, unspecified Electrolytes, Urine Random 2 Days E87.1 - Hypo-osmolality and hyponatremia Uric Acid 2 Days E87.1 - Hypo-osmolality and hyponatremia Ambulatory Hemoglobin A1C 2 Days Z13.9 - Encounter for screening, unspecified Comprehensive Metabolic Panel 2 Days Z13.9 - Encounter for screening, unspecified Office Procedures [facility] Level of Care Nursing/Assessment Patient Status: Established Patient Nursing Assessment/Reassessment: Medication Reconciliation, Update PMH in EMR and Vital Signs Coordination of Care: Complex Care and Chronic Disease 1-5, Consent,records obtained, informed consent, Education Simp Pt/Fam, Results/Orders obtained and Staff clarify orders Established Patient Charge Established Patient Point Assignment: 90 Established Patient Point Charge: Level 3 (80-115)
== END 2024-10-31 14:49 | disposition home or self-care (01) ==
LOC: HODAHC 13:50
PROVIDERS: PCP Student in an Organized Health Care Education/Training Program; Referring Provider Student in an Organized Health Care Education/Training Program; Supervising Provider Internal Medicine; Visit Provider Student in an Organized Health Care Education/Training Program
DX: E87.1 Hypo-osmolality and hyponatremia (principal); D64.9 Anemia, unspecified
CPT/HCPCS: 99213; G0463

== ENCOUNTER 2024-12-26 14:21 | Outpatient (AMB) | payer MEDICAID, SELFPAY ==
[2024-12-26 14:46] VITALS: BP 136/67; PULSE 101; RESP 18; TEMP 36.4; O2SAT 95; BMI 26.2
--- NOTE | 2024-12-26 14:46 | PD.RESCLINIC ---
Vital Signs 12/26/24 14:46 Height 1.6 m Height Method Stated Weight 67.188 kg Weight Measurement Method Standing Scale BMI 26.2 BP 136/67 H Blood Pressure Source Automatic Cuff Blood Pressure Location Right Upper Arm Position Sitting Respiration 18 Pulse 101 H Pulse Source Monitor Temp 97.5 F Temp Source Temporal Artery Scan Pulse Oximetry (%) 95 Oxygen Delivery Method Room Air Allergies/Meds Allergies & Medications Allergies adhesive Allergy (Severe, Verified 12/31/24 08:24) HIVES doxycycline Allergy (Severe, Verified 12/31/24 08:24) HIVES Penicillins Allergy (Severe, Verified 12/31/24 08:24) Hives Medication Reconciliation levothyroxine 50 mcg tablet (Synthroid) 50 mcg PO QDAY THYROID #0 tabs 12/02/14 [History Confirmed 12/26/24] docusate sodium 100 mg capsule 1 cap PO QDAY PRN Constipation 04/03/22 [History Confirmed 12/26/24] duloxetine 60 mg capsule,delayed release 2 cap PO QDAY 04/03/22 [History Confirmed 12/26/24] metoprolol succinate 25 mg tablet,extended release 24 hr 1 tab PO QDAY 04/03/22 [History Confirmed 12/26/24] cholecalciferol (vitamin D3) 125 mcg (5,000 unit) capsule 125 mcg PO QDAY 08/05/24 [History Confirmed 12/26/24] irbesartan 75 mg tablet 75 mg PO QDAY 08/05/24 [History Confirmed 12/26/24] ferrous sulfate 324 mg (65 mg iron) tablet,delayed release 324 mg PO Q OTHER DAY 1 month #15 tabs 08/09/24 [Rx Confirmed 12/26/24] lidocaine 4 % topical patch (AsperFlex (lidocaine)) 1 patch topical QDAY PRN pain #30 ea 08/22/24 [Rx Confirmed 12/26/24] hydrocodone 10 mg-acetaminophen 325 mg tablet 1 tab PO Q6H PRN pain 09/10/24 [History Confirmed 12/26/24] lorazepam 1 mg tablet 1 mg PO Q12H PRN anxiety 09/10/24 [History Confirmed 12/26/24] polyethylene glycol 3350 17 gram/dose oral powder 17 g PO QDAY #119 grams 09/10/24 [Rx Confirmed 12/26/24] duloxetine 60 mg capsule,delayed release 60 mg PO BID #60 caps 10/03/24 [Rx Confirmed 12/26/24] white petrolatum 61 % topical cream (Maximus Moisture Barrier Cr) 1 applic topical DAILY #99 grams 10/03/24 [Rx Confirmed 12/26/24] diclofenac sodium 1 % topical gel (Arthritis Pain (diclofenac)) 4 g topical QID #100 grams 11/05/24 [Rx Confirmed 12/26/24] celecoxib 100 mg capsule 100 mg PO BID PRN pain #20 caps 12/16/24 [Rx Confirmed 12/26/24] meclizine 12.5 mg tablet 12.5 mg PO TID PRN dizziness or vertigo #15 tabs 12/16/24 [Rx Confirmed 12/26/24] ondansetron HCl 4 mg tablet 4 mg PO Q8H PRN Nausea #30 tabs 12/16/24 [Rx Confirmed 12/26/24] sodium chloride 1,000 mg soluble tablet 1,000 mg PO BID #30 tabs 12/16/24 [Rx Confirmed 12/26/24] zolpidem 5 mg tablet 5 mg PO QHS PRN insomnia 1 month #30 tabs 12/17/24 [Rx Confirmed 12/26/24] Lactobacillus acidophilus 10 billion cell capsule 10,000 mmu cells PO QDAY #30 caps 12/26/24 [Rx Confirmed 12/31/24] dicyclomine 10 mg capsule 10 mg PO BID 1 month #60 caps 12/26/24 [Rx Confirmed 12/31/24] ferrous sulfate 324 mg (65 mg iron) tablet,delayed release 324 mg PO Q OTHER DAY 2 months #30 tabs 12/26/24 [Rx Confirmed 12/31/24] MA Intake Visit Data Collection New Patient or Established: Established Patient (seen at [facility] within 3 years) Seen by Clinical Staff ONLY (RN/MA): No Pain Present Currently: No Pain scale:: 0 Pain Scale Used: Mehta-Bassett/Numerical Seed Technician Required: No PCP or OBGYN visit in last 3 months: Yes Hx Now: No Do You Feel Safe at Home: Yes Authorities Contacted: N/A Smoking Status Smoking Status: Never smoker Immunization / Flu Flu Vaccine in the Last 12 Months: Yes Flu Vaccine Exclusion Criteria: Already Received Past Medical History Past Medical History NEUROLOGIC: Negative Neurological Disorders CARDIAC: Positive Cardiac Disorders and Hypertension; Negative Cardiac Arrhythmia, Atrial Fibrillation, Angina, Atherosclerotic Heart Disease, Aneurysm or Congestive Heart Failure RESPIRATORY: Negative Chronic Obstructive Pulmonary Disease (COPD) or Asthma GASTROINTESTINAL: Positive Gastrointestinal Disorders and Gastroesophageal Reflux Disease; Negative Celiac Disease or Kaiser's Esophagus GENITOURINARY: Negative Genitourinary Disorders or Renal Disease REPRODUCTIVE: Negative Pelvic Inflammatory Disease MUSCULOSKELETAL: Positive Arthritis, Fibromyalgia and Fractures ENT: Positive Cataracts; Negative Glaucoma, Blind, Retinal Detachment, Macular Degeneration, Ear Infection, Deafness or Eye Prosthesis ENDOCRINE: Negative Endocrine Disorders, Diabetes Mellitus Type 1, Diabetes Mellitus Type 2, Camak's Disease or Adrenal Disease HEMATOLOGIC: Negative Blood Disorders or Sickle Cell Disease PSYCHO/SOCIAL: Positive Depression and Anxiety OTHER HISTORY: Positive MRSA; Negative Autoimmune Disease, Shingles, Anesthesia Reactions, Organ Transplant, Vancomycin-Resistant Enterococci, Clostridium Difficile or Cancer Family History FAMILY HISTORY: Positive Family Surgery; Negative Family Respiratory Disorders, Family Cardiac Disorders, Family Gastrointestinal Problems, Family Cancer or Family Anesthesia Reaction Surgical History SURGICAL: Negative Organ Transplant Social History SMOKING STATUS: Smoking status: Never smoker ALCOHOL: Alcohol Intake: Current ALCOHOL FREQUENCY: Alcohol Intake Frequency: 3 or More Drinks per Day HOUSING: Housing: LIVES WITH: Lives With: Alone Patient Portal Questionaires PHQ-9 PHQ-2 Over the last 2 weeks, how often have you been bothered by any of the following problems? 1. Little interest or pleasure in doing things: not at all PHQ-9 8. Moving or speaking so slowly that other people could have noticed? - Or the opposite - being so fidgety or restless that you have been moving around a lot more than usual: not at all Source: Developed by Drs. Albin Glaser, Angela Michaels, Colt Noyola and colleagues, with an educational daiana from [employer]. Social History Living Situation History Housing: RV Tobacco History Smoking Status: Never smoker Alcohol History Alcohol Intake: Current Alcohol Intake Frequency: 3 or More Drinks per Day Domestic Abuse History Do You Feel Safe at Home: Yes Review of Systems Report any current symptoms Only answer those that you have currently: Past Medical History Past Medical History Have you ever been diagnosed with any of the following: Cardiology Problems Cardiac Arrhythmia: No Atrial Fibrillation: No Angina: No Atherosclerotic Heart Disease: No Aneurysm: No Congestive Heart Failure: No Hypertension: Yes Respiratory Problems Chronic Obstructive Pulmonary Disease (COPD): No Asthma: No Stomache/Intestinal Problems Celiac Disease: No Kaiser's Esophagus: No Gastroesophageal Reflux Disease: Yes Genital/Urinary Problems Renal Disease: No Reproductive Problems Pelvic Inflammatory Disease: No Musculoskeletal Problems Arthritis: Yes Fibromyalgia: Yes Fractures: Yes Head,Eye,Nose,Throat Problems Cataracts: Yes Glaucoma: No Blind: No Retinal Detachment: No Macular Degeneration: No Chronic Ear Infections: No Deafness: No Eye Prosthesis: No Endocrine Problems Diabetes Mellitus Type 1: No Diabetes Mellitus Type 2: No Camak's Disease: No Adrenal Disease: No Blood Problems Sickle Cell Disease: No Psychologic Problems Depression: Yes Anxiety: Yes Other Problems Autoimmune Disease: No Shingles: No Anesthesia Reactions: No Organ Transplant: No MRSA: Yes Vancomycin-Resistant Enterococci: No Clostridium Difficile: No Cancer: No History of Present Illness HPI Narrative Patient is a 64-year-old female with a past medical history of hypertension, hypothyroidism, opiate dependence, chronic pain disorder and anxiety disorder whpo was recently hospitalized at [facility] in Jul 2024 for AHRF 2/2 RT pleural effusion. Labs at that [facility] showed WBC 8.3 Hgb 7.6 with low MCV , JUAN ANTONIO : CR 1.4 EGFR 43 and BNP 1223. Chest x-ray showed pulmonary vascular congestion and CT showed significant pneumonia in the right base, and RT pleural effusion present.. Echo showed dilated LV, but no wall motion abnormalities, LVEF 55-60%. Chest/abdomen/pelvis CT showed Mild CHF. Significant pneumonia right base and possible acute acalculous cholecystitis. Gallbladder ultrasound also showed acute acalculous cholecystitis. Followed up with [facility] which was negative. Patient received 1 unit of PRBC transfusion in view of anemia. FOBT was negative for blood. Sent home on 325mg qOther Day ferrous sulfat, hydroxyzine 25 Mg twice daily as needed, zolpidem 5mg p.o. HS. 08/22/2024: Patient presented for a clinic visit to establish post discharge primary care. She has symptomatically improved significantly. She complains of mild congestion, and flulike symptoms for the last 2 days, she requests a decongestant for the same. Patient also has left knee swelling and pain, and inability to bear weight. Patient was advised to bring her old records from her previous place of primary care in order to evaluate need for further imaging and testing. Ordered 10 capsules of celecoxib and topical diclofenac gel for knee pain, also ordered ciprofloxacin eardrops for right-sided earache and possible otitis externa. Follow-up visit scheduled for 4 weeks from now. 10/03/2024: Patient seen for a follow up visit. She was recently brought to the ED in Aug, 2024 after a ground level fall and found to have an acute fracture base of the odontoid, the odontoid tip displaced posteriorly 3 mm relative to the body of C2, fracture anterior ring of C1 with 5 mm separation at the fracture site and nondisplaced fracture right lamina C1. She was transferred to [facility] for neurosurgery intervention, and then transferred back postprocedure for postop care. Patient was discharged from [facility] medical to acute rehab. At this visit she has completed her rehab stay, is wearing a cervical brace and endorses improvement in neck pain and function. She does have some spasmodic pain in the right trapezius, and tenderness at the site of stitches posteriorly level C1-C2. As per neurosurgical recommendation patient is to wear a cervical brace for 4-6 weeks. We will continue all medications at this time including lorazepam, [place] and Cymbalta. Patient will be prescribed an emollient as she endorses itchiness and dryness at the site of stitches post removal, we will also give lidocaine 5% patch renew her Celebrex and give a 1 week course of Tramacet. She is scheduled for a appointment for a pain specialist on October 13, 2024 for chronic pain management. We will review pain medications after her appointment and tailor goal-directed medical therapy from there. 10/31/2024: Came for follow up visit. Still continuing to wear neck collar as patient feels snapping sound with the neck movements when she doesnt wear the neck collar and feels comfortable and less painful with the collar on. Pending to see Orthopedic surgeon in [place] in this month. Still continuing to take norco for chronic back and knee pain, taking celecoxib as needed for the neck pain. Reported that her right hand still had weakness from previous wrist surgery. Also stated that she had h/o chronic hyponatremia and wants to get her labs to follow up with her sodium levels. Recommended to follow up in 1 month. 12/26/2024: Patient presented for a follow-up visit. Health at baseline, complains of bilateral knee joint pain, L>R. Also some minimal swelling around the left knee. She was advised to use diclofenac ointment prescribed previously, she is also using topical CBD oil intermittently. Patient requested refills for iron tablets, lactobacillus and Flexeril. Was advised to discontinue Flexeril given minimal benefit after trial and will start patient on dicyclomine twice daily. Follow-up in 3 months, she was advised to request phone appointment in between as needed. Review of Systems Review of Systems Narrative Review of Systems: GENERAL: Denies fevers/chills, diaphoresis. HEENT: Denies headache or visual/hearing changes. Denies nasal discharge. NEURO: Denies unusual weakness or difficulty speaking. CARDIO: Denies chest pain, palpitations. PULM: Denies SOB, cough, wheezing. GI: Denies abdominal pain, no N/V, no C/D. Reports having BMs URO: Denies burning/itching/pain/urinary changes. FOOD QUALITY TESTER: Denies menstrual changes, hot flashes. MSK/EXT/SKIN: bilateral knee joint pain, L>R. Also some minimal swelling around the left knee. PSYCH: Cooperative, pleasant mood & affect. The rest of the review of systems is otherwise negative. Objective/Exam Narrative Physical exam: Constitutional Alert, oriented x3 and in mild discomfort HEENT Vision grossly intact. Patent nares. Trachea midline. Cervical collar in place Respiratory Chest normal on inspection and clear to auscultation bilaterally. Cardiovascular S1 and S2 audible, RRR. No murmurs or carotid bruit. No gross JVD. Abdominal Soft and non tender to palpation in all quadrants. BS + Genitourinary No bladder tenderness, no flank pain. Normal to palpation. Musculoskeletal Extremities tone within normal limits. Bilateral knee joint tenderness, L> ; minimal swelling around the left knee. Neurological CN II - XII grossly intact. Extremity motor and sensation grossly intact. Skin Pruritis, Dryness at site of stitches, C1-C2 post stitch removal Psychiatric Patient has a good affect, is cooperative. Assessment & Plan Diagnosis / Problem List (1) Cervical vertebral fracture: Status: Acute Qualifiers: Cervical vertebra fracture level: C1 Encounter type: initial encounter Fracture alignment: nondisplaced Fracture morphology: other fracture Fracture type: closed Qualified Code(s): S12.091A - Other nondisplaced fracture of first cervical vertebra, initial encounter for closed fracture Assessment & Plan: Previous C1 and C2 fracture, transferred to [facility] for neurosurgery intervention. Completed acute rehab stay. Continues to wear cervical brace. Plan: - Recommended to continue to wear cervical collar as prescribed - Celecoxib as needed (2) Bilateral primary osteoarthritis of knee: Status: Acute Assessment & Plan: complains of bilateral knee joint pain, L>R. Also some minimal swelling around the left knee. Plan: - Local application of Diclofenac as needed - Continue topical CBD oil - Exercise encouraged (3) Chronic pain disorder: Status: Acute Assessment & Plan: chronic LT knee osteoarthritis chronic back pain New cervical neck pain s/p C1-C2 fracture Plan: - Saw pain specilaist and using norco for the chronic pain - Will discontinue Flexeril given minimal benefit after trial and will start patient on dicyclomine twice daily. d (4) Insomnia secondary to anxiety: Status: Acute Assessment & Plan: Reported that she feels good with ambien Plan: - Explained about sleep hygiene - continue ambien as needed Plan Follow up scheduled in 3 months Refilled iron tablets, lactobacillus and new Rx for dicyclomine twice daily. Advised to call clinic for phone appt if needed Office Procedures [facility] Level of Care Nursing/Assessment Patient Status: Established Patient Nursing Assessment/Reassessment: Medication Reconciliation, Update PMH in EMR and Vital Signs Coordination of Care: Complex Care and Chronic Disease 1-5, Education Complex Pt/Fam, Consent,records obtained, informed consent, Education Simp Pt/Fam and Staff clarify orders Established Patient Charge Established Patient Point Assignment: 105 Established Patient Point Charge: EP Level 3 (80-115)
== END 2024-12-26 15:12 | disposition home or self-care (01) ==
LOC: HODAHC 14:21
PROVIDERS: PCP Student in an Organized Health Care Education/Training Program; Referring Provider Student in an Organized Health Care Education/Training Program; Supervising Provider Internal Medicine
DX: M17.0 Bilateral primary osteoarthritis of knee (principal); S12.091D Other nondisplaced fracture of first cervical vertebra, subsequent encounter for fracture with routine healing; X58.XXXD Exposure to other specified factors, subsequent encounter; G89.29 Other chronic pain; F41.9 Anxiety disorder, unspecified; F51.05 Insomnia due to other mental disorder
CPT/HCPCS: 99213; G0463

== ENCOUNTER → 2025-05-01 | Outpatient (CLI) | payer MEDICAID, SELFPAY ==
--- NOTE | 2025-05-01 16:24 | XR_ITS ---
Examination: Cervical spine 3 views Technique: AP lateral coned AP odontoid cervical spine 3 views Date and time: May 01, 2025 1644 hrs. Indications: History C1-C2 fracture, surgery done August 2024, acute fracture base of the odontoid, displacement of the odontoid tip, fracture anterior ring C1 with 5 mm separation at the fracture site on CT cervical spine September 02, 2024 Findings: Status post cervical surgical stabilization C1-C2 with satisfactory alignment on the lateral view Grade 1 anterolisthesis C5 relative to C6, likely secondary to the advanced degenerative disc disease C6-C7 The odontoid appears intact on the AP view Impression: Status post surgical stabilization C1-C2 which appears satisfactory As clinically warranted, CT scan cervical spine follow-up would best assess alignment compared to the September 02, 2024 exam
== END | disposition home or self-care (01) ==
LOC: CDIM 16:14
PROVIDERS: PCP Family Medicine; Referring Provider Family Medicine; Visit Provider Family Medicine
DX: S12.101K Unspecified nondisplaced fracture of second cervical vertebra, subsequent encounter for fracture with nonunion (principal); X58.XXXD Exposure to other specified factors, subsequent encounter; Z98.890 Other specified postprocedural states
CPT/HCPCS: 72040